=== PATIENT | male | born 1955 | race Two or more races ===

== ENCOUNTER 2019-05-30 08:20 | Emergency (ER) | payer OTHER ==
[2019-05-30 08:25] VITALS: RESP 18
--- NOTE | 2019-05-30 09:01 | XR ---
EXAMINATION TYPE: XR foot complete RT DATE OF EXAM: 05/30/2019 COMPARISON: NONE HISTORY: Heel pain TECHNIQUE: Three views are submitted. FINDINGS: The osseous structures are intact. There is no acute fracture or dislocation. Joint spaces are p reserved. Arthropathy of the first MTP joint. Moderate-sized plantar calcaneal spur. IMPRESSION: 1. No acute fracture or dislocation. If symptoms persist, follow-up exam in 7 to 10 days could be ob tained. 2. calcaneal spur.
--- NOTE | 2019-05-30 09:23 | ED ---
Lower Extremity Injury HPI - General Chief Complaint: Extremity Injury, Lower Stated Complaint: LEFT FOOT PAIN Time Seen by Provider: 05/30/19 08:24 Source: patient, RN notes reviewed, old records reviewed Mode of arrival: ambulatory Limitations: no limitations - History of Present Illness Initial Comments: This is a 63-year-old male the ER for evaluation. The patient has right foot pain. Right foot pain times multiple weeks. No injury noted. Patient has no trauma. No numbness or tingling and ambulate without difficulty pain is worse in the morning gets better throughout the day. No prior history of similar complaint. MD Complaint: foot injury (foot pain) -: week(s) Injury: Foot: Right Type of Injury: unknown Place: home Severity: moderate Severity scale (1-10): 4 Improves With: nothing Worsens With: weight bearing, movement Associated Symptoms: able to partially bear weight, ambulatory - Related Data Home Medications Medication Instructions Recorded Confirmed Atorvastatin Calcium [Lipitor] 10 mg PO HS 05/30/19 05/30/19 Levothyroxine Sodium [Synthroid] 75 mcg PO DAILY 05/30/19 05/30/19 Meloxicam [Mobic] 7.5 mg PO HS 05/30/19 05/30/19 Allergies Allergy/AdvReac Type Severity Reaction Status Date / Time No Known Allergies Allergy Verified 05/30/19 08:42 Review of Systems ROS Statement: Those systems with pertinent positive or pertinent negative responses have been documented in the HPI. ROS Other: All systems not noted in ROS Statement are negative. Past Medical History Past Medical History: Hyperlipidemia, Osteoarthritis (OA), Thyroid Disorder History of Any Multi-Drug Resistant Organisms: None Reported Past Surgical History: No Surgical Hx Reported Past Psychological History: Depression Smoking Status: Never smoker Past Alcohol Use History: None Reported Past Drug Use History: None Reported General Exam - General Exam Comments Initial Comments: Some calcaneus tenderness pulses 2+ and equal Limitations: no limitations General appearance: alert, in no apparent distress Head exam: Present: atraumatic, normocephalic, normal inspection Eye exam: Present: normal appearance, PERRL, EOMI. Absent: scleral icterus, conjunctival injection, periorbital swelling ENT exam: Present: normal exam, mucous membranes moist Neck exam: Present: normal inspection. Absent: tenderness, meningismus, lymphadenopathy Respiratory exam: Present: normal lung sounds bilaterally. Absent: respiratory distress, wheezes, rales, rhonchi, stridor Cardiovascular Exam: Present: regular rate, normal rhythm, normal heart sounds. Absent: systolic murmur, diastolic murmur, rubs, gallop, clicks GI/Abdominal exam: Present: soft, normal bowel sounds. Absent: distended, tenderness, guarding, rebound, rigid Extremities exam: Present: normal inspection, full ROM, normal capillary refill. Absent: tenderness, pedal edema, joint swelling, calf tenderness Back exam: Present: normal inspection Neurological exam: Present: alert, oriented X3, CN II-XII intact Psychiatric exam: Present: normal affect, normal mood Skin exam: Present: warm, dry, intact, normal color. Absent: rash Course Vital Signs 05/30/19 08:21 Temperature 97.8 F Pulse Rate 79 Respiratory 18 Rate Blood Pressure 155/82 O2 Sat by Pulse 97 Oximetry Medical Decision Making - Medical Decision Making 60 female the ER for evaluation of foot pain he'll pain. Patient likely has plantar fasciitis, x-rays negative, patient can be discharged home - Radiology Data Radiology results: report reviewed (Was negative for acute disease), image reviewed Disposition Clinical Impression: Plantar fasciitis of right foot Disposition: HOME SELF-CARE Condition: Good Instructions (If sedation given, give patient instructions): Plantar Fasciitis (ED) Is patient prescribed a controlled substance at d/c from ED?: No Referrals: Malik Garcia MD [Primary Care Provider] - 1-2 days
[2019-05-30 09:45] VITALS: BP 130/94; PULSE 78; TEMP 98
== END 2019-05-30 09:58 | disposition home or self-care (01) ==
LOC: EC 08:20
DX: M72.2 Plantar fascial fibromatosis (principal); E78.5 Hyperlipidemia, unspecified; E07.9 Disorder of thyroid, unspecified; M19.90 Unspecified osteoarthritis, unspecified site; Z79.890 Hormone replacement therapy; Z79.1 Long term (current) use of non-steroidal anti-inflammatories (NSAID); Z79.899 Other long term (current) drug therapy
CPT/HCPCS: 99284

== ENCOUNTER 2019-07-25 08:35 | Emergency (ER) | payer OTHER ==
[2019-07-25 08:40] VITALS: BP 148/88; PULSE 84; RESP 18; TEMP 98.2
[2019-07-25] MEDS ORDERED: ORPHENADRINE 30 MG/ML 2 ML VIAL IM STA (08:47)
[2019-07-25] MEDS ORDERED: KETOROLAC 60 MG/2 ML VIAL IM STA (08:47)
--- NOTE | 2019-07-25 08:50 | ED ---
Back Pain HPI - General Chief Complaint: Back Pain/Injury Stated Complaint: back pain Time Seen by Provider: 07/25/19 08:41 Source: patient, RN notes reviewed Mode of arrival: ambulatory Limitations: no limitations - History of Present Illness Initial Comments: 63-year-old male presents emergency Department with chief complaint of low back pain. Patient states that he was helping his son drive his car and states that he insulin he felt some pain in his right low back. Patient states that he felt a pop. He has no symptoms that radiate down into his leg. Denies any bowel bladder incontinence or retention. Patient states that he went to his chiropractor states that he had an adjustment which helped minimally. Patient states that he just is having spasms. He did take some naproxen yesterday with minimal relief of symptoms. He has no abdominal complaints denies fevers or chills. Patient does state that he has a history of degenerative disc disease. - Related Data Home Medications Medication Instructions Recorded Confirmed Atorvastatin Calcium [Lipitor] 10 mg PO HS 05/30/19 07/25/19 Levothyroxine Sodium [Synthroid] 75 mcg PO DAILY 05/30/19 07/25/19 Meloxicam [Mobic] 7.5 mg PO HS 05/30/19 07/25/19 Previous Rx's Medication Instructions Recorded Naproxen [Naprosyn] 500 mg PO Q12HR PRN #30 tab 05/30/19 Cyclobenzaprine [Flexeril] 10 mg PO TID PRN #15 tab 07/25/19 Ibuprofen [Motrin] 600 mg PO Q8HR PRN #30 tab 07/25/19 Allergies Allergy/AdvReac Type Severity Reaction Status Date / Time No Known Allergies Allergy Verified 07/25/19 08:59 Review of Systems ROS Statement: Those systems with pertinent positive or pertinent negative responses have been documented in the HPI. ROS Other: All systems not noted in ROS Statement are negative. Past Medical History Past Medical History: Hyperlipidemia, Osteoarthritis (OA), Thyroid Disorder History of Any Multi-Drug Resistant Organisms: None Reported Past Surgical History: No Surgical Hx Reported Past Psychological History: Depression Smoking Status: Never smoker Past Alcohol Use History: None Reported Past Drug Use History: None Reported General Exam Limitations: no limitations General appearance: alert, in no apparent distress Head exam: Present: atraumatic, normocephalic, normal inspection Respiratory exam: Present: normal lung sounds bilaterally. Absent: respiratory distress, wheezes, rales, rhonchi, stridor Cardiovascular Exam: Present: regular rate, normal rhythm, normal heart sounds. Absent: systolic murmur, diastolic murmur, rubs, gallop, clicks GI/Abdominal exam: Present: soft, normal bowel sounds. Absent: distended, tenderness, guarding, rebound, rigid Extremities exam: Present: other (Lower extremity strength equal bilaterally, neurovascular intact pedal pulses bilaterally. Right ankle noted teather no signs of infection around band) Back exam: Present: normal inspection, full ROM (Pain with range of motion flexion extension rotation), tenderness (Right lumbar mild to moderate), muscle spasm, paraspinal tenderness. Absent: vertebral tenderness Neurological exam: Present: alert, oriented X3, CN II-XII intact, reflexes normal. Absent: motor sensory deficit Skin exam: Present: warm, dry, intact, normal color. Absent: rash Course Vital Signs 07/25/19 08:38 Temperature 98.2 F Pulse Rate 84 Respiratory 18 Rate Blood Pressure 148/88 O2 Sat by Pulse 99 Oximetry Medical Decision Making - Medical Decision Making 63-year-old male presents emergency from for low back pain. Patient symptoms are consistent with a lumbar strain x-rays obtained which shows arthritic changes. Patient has no red flag symptoms. Patient will be discharged with close follow-up. Disposition Clinical Impression: Strain of lumbar region Disposition: HOME SELF-CARE Condition: Stable Instructions (If sedation given, give patient instructions): Acute Low Back Pain (ED) Additional Instructions: Please return to the Emergency Department if symptoms worsen or any other concerns. Prescriptions: Cyclobenzaprine [Flexeril] 10 mg PO TID PRN #15 tab PRN Reason: Muscle Spasm Ibuprofen [Motrin] 600 mg PO Q8HR PRN #30 tab PRN Reason: Pain Is patient prescribed a controlled substance at d/c from ED?: No Referrals: Malik Garcia MD [Primary Care Provider] - 1-2 days Time of Disposition: 09:17
--- NOTE | 2019-07-25 09:09 | XR ---
EXAMINATION TYPE: XR lumbar spine 2 or 3V DATE OF EXAM: 07/25/2019 CLINICAL HISTORY: Low back pain from twisting injury. TECHNIQUE: Frontal and lateral images of the lumbar spine are obtained. COMPARISON: None FINDINGS: There are 5 lumbar type vertebral bodies identified. The lumbar spine shows straightened alignment without evidence of acute fracture or dislocation. Moderate to severe disc space narrowing with mild to moderate anterior spurring L5-S1 level otherwise vertebral body heights and disc space h eights are felt normal limits. The overlying soft tissue appears unremarkable. IMPRESSION: As above.
[2019-07-25] MEDS ORDERED: ACET/COD 300 MG/30 MG STARTER PACK 6 TAB BTL PO STA (09:18)
== END 2019-07-25 09:25 | disposition home or self-care (01) ==
LOC: EC 08:35
DX: S39.012A Strain of muscle, fascia and tendon of lower back, initial encounter (principal); E78.5 Hyperlipidemia, unspecified; Z79.890 Hormone replacement therapy; Z79.899 Other long term (current) drug therapy; Z79.1 Long term (current) use of non-steroidal anti-inflammatories (NSAID); X50.9XXA Other and unspecified overexertion or strenuous movements or postures, initial encounter
CPT/HCPCS: 72100; 99283; 96372 ×2; J2360; J1885

== ENCOUNTER → 2019-08-02 | Outpatient (CLI) | payer OTHER ==
--- NOTE | 2019-08-02 14:48 | XR ---
EXAMINATION TYPE: XR lumbosacral spine min 4V DATE OF EXAM: 08/02/2019 CLINICAL HISTORY: DDD and pain per order. TECHNIQUE: Frontal, oblique, and lateral images of the lumbar spine are obtained. COMPARISON: Prior x-ray 8 days ago. FINDINGS: There are 5 lumbar type vertebral bodies redemonstrated. The lumbar spine shows stable an d satisfactory alignment without evidence of acute fracture or dislocation. Vertebral body heights we re maintained within normal limits. Moderate to severe disc space narrowing L5-S1 level is redemonstr ated with mild anterior spurring The oblique images appear within normal limits. The overlying soft tissue appears unremarkable. IMPRESSION: As above. No significant interval change.
== END | disposition home or self-care (01) ==
LOC: RADXRMAIN 13:54
PROVIDERS: ATTEND Family Medicine
DX: M99.73 Connective tissue and disc stenosis of intervertebral foramina of lumbar region (principal); M99.74 Connective tissue and disc stenosis of intervertebral foramina of sacral region
CPT/HCPCS: 72110

== ENCOUNTER 2020-05-21 13:01 | Emergency (ER) | payer OTHER ==
[2020-05-21] MEDS ORDERED: DIPH,PERTUS(ACELL)TETVAC-LF 0.5 ML VIAL IM ONE (13:13)
[2020-05-21] MEDS ORDERED: LIDOCAINE 1% INJ 10MG/ML (20 ML MDV) SQ ONE (13:13)
[2020-05-21 13:15] VITALS: RESP 16
--- NOTE | 2020-05-21 13:34 | XR ---
EXAMINATION TYPE: XR forearm LT DATE OF EXAM: 05/21/2020 CLINICAL HISTORY: pain TECHNIQUE: Frontal and lateral images of the left forearm are obtained. COMPARISON: None. FINDINGS: There is no acute fracture/dislocation evident. The joint spaces appear within normal limi ts. No evidence for radiopaque foreign body.. IMPRESSION: There is no acute fracture or dislocation. ICD 10 NO FRACTURE, INITIAL EVALUATION
--- NOTE | 2020-05-21 14:13 | ED ---
Wound/Laceration HPI - General Chief Complaint: Wound/Laceration Stated Complaint: left arm lac Time Seen by Provider: 05/21/20 13:09 Source: patient, RN notes reviewed, old records reviewed Mode of arrival: ambulatory Limitations: no limitations - History of Present Illness Initial Comments: Patient is a 64-year-old male presents emergency department today for evaluation with concern of laceration over the left forearm. Patient reportedly cut his arm while working on a car. Patient states that he has full range of motion of the arm and hand. He states that his tetanus shot is not up-to-date. - Related Data Home Medications Medication Instructions Recorded Confirmed Atorvastatin Calcium [Lipitor] 10 mg PO HS 05/30/19 07/25/19 Levothyroxine Sodium [Synthroid] 75 mcg PO DAILY 05/30/19 07/25/19 Meloxicam [Mobic] 7.5 mg PO HS 05/30/19 07/25/19 Previous Rx's Medication Instructions Recorded Naproxen [Naprosyn] 500 mg PO Q12HR PRN #30 tab 05/30/19 Cyclobenzaprine [Flexeril] 10 mg PO TID PRN #15 tab 07/25/19 Ibuprofen [Motrin] 600 mg PO Q8HR PRN #30 tab 07/25/19 Allergies Allergy/AdvReac Type Severity Reaction Status Date / Time No Known Allergies Allergy Verified 07/25/19 08:59 Review of Systems ROS Statement: Those systems with pertinent positive or pertinent negative responses have been documented in the HPI. ROS Other: All systems not noted in ROS Statement are negative. Past Medical History Past Medical History: Hyperlipidemia, Osteoarthritis (OA), Thyroid Disorder History of Any Multi-Drug Resistant Organisms: None Reported Past Surgical History: No Surgical Hx Reported Past Psychological History: Depression Smoking Status: Never smoker Past Alcohol Use History: None Reported Past Drug Use History: None Reported General Exam Limitations: no limitations General appearance: alert, in no apparent distress Head exam: Present: atraumatic, normocephalic, normal inspection Eye exam: Present: normal appearance ENT exam: Present: normal exam, mucous membranes moist Neck exam: Present: normal inspection Respiratory exam: Present: normal lung sounds bilaterally. Absent: respiratory distress, wheezes, rales, rhonchi, stridor Cardiovascular Exam: Present: regular rate, normal rhythm, normal heart sounds. Absent: systolic murmur, diastolic murmur, rubs, gallop, clicks GI/Abdominal exam: Present: soft Extremities exam: Present: normal inspection, full ROM, normal capillary refill, other (Patient is a 4 cm laceration superficial over the left anterior upper forearm. Laceration is linear.). Absent: tenderness, pedal edema, joint swelling, calf tenderness Back exam: Present: normal inspection Neurological exam: Present: alert, oriented X3, CN II-XII intact Psychiatric exam: Present: normal affect, normal mood Course Vital Signs 05/21/20 05/21/20 13:09 14:34 Temperature 97.9 F 98.1 F Pulse Rate 80 78 Respiratory 16 16 Rate Blood Pressure 149/82 139/93 O2 Sat by Pulse 97 95 Oximetry Procedures - Laceration Laceration #1 Indication: laceration Site: other (Left forearm) Size (cm): 4 Description: linear Depth: simple, single layer Anesthetic Used: lidocaine 1% Anesthesia Technique: local infiltration (6) Amount (mls): 6 Pre-repair: wound explored, irrigated extensively Type of Sutures: nylon Size of Sutures: 5-0 Number of Sutures: 8 Technique: simple, interrupted Patient Tolerated Procedure: well, no complications Medical Decision Making - Medical Decision Making 63-year-old male has restarted his left forearm laceration. Patient cut it while working on the car. Patient was given updated tetanus. Laceration was sterilely irrigated and closed with 8 sutures. Discussed monitoring for infection. All questions answered. - Radiology Data Radiology results: report reviewed Forearm x-ray shows no fracture dislocation. No evidence of retained foreign body. Disposition Clinical Impression: Forearm laceration Disposition: HOME SELF-CARE Condition: Good Instructions (If sedation given, give patient instructions): Care For Your Stitches (ED) Additional Instructions: Please return to the emergency room in 8-10 days to have sutures removed. Please leave wound covered for the first 24-48 hours and then leave open to air after that time. Please use clean soap and water to clean the suture area to prevent scabbing over the top of your sutures. Please watch for any signs of infection which may include but not limited to increased pain, swelling, redness, fever or chills. Please return to the emergency room if any signs of infection do occur. Please return to the emergency room for any other concerns or complications. Is patient prescribed a controlled substance at d/c from ED?: No Referrals: Malik Garcia MD [Primary Care Provider] - 1-2 days Time of Disposition: 14:12
[2020-05-21 14:38] VITALS: BP 139/93; PULSE 78; TEMP 98.1
== END 2020-05-21 14:38 | disposition home or self-care (01) ==
LOC: EC 13:01
DX: S51.812A Laceration without foreign body of left forearm, initial encounter (principal); Z23 Encounter for immunization; E78.5 Hyperlipidemia, unspecified; E07.9 Disorder of thyroid, unspecified; Z79.890 Hormone replacement therapy; Z79.899 Other long term (current) drug therapy; Z79.1 Long term (current) use of non-steroidal anti-inflammatories (NSAID); W26.8XXA Contact with other sharp object(s), not elsewhere classified, initial encounter
CPT/HCPCS: 73090; 90715; 99283; 12002; 90471; J2001

== ENCOUNTER 2020-09-28 18:06 | Observation (INO) | payer OTHER ==
[2020-09-28] MEDS ORDERED: ASPIRIN 81 MG PO STA (18:47)
[2020-09-28] MEDS ORDERED: NITROGLYCERIN SL TABS 0.4 MG TAB SUBLINGUAL STA ×3 (18:47)
[2020-09-28] MEDS ORDERED: HYDROmorphone 1 MG/ML 1 ML SYRINGE IVP STA (19:12)
--- NOTE | 2020-09-28 19:14 | ED ---
General Adult HPI - General Chief complaint: Chest Pain Stated complaint: Chest/back pain Time Seen by Provider: 09/28/20 18:46 Source: patient, RN notes reviewed Mode of arrival: wheelchair Limitations: no limitations - History of Present Illness Initial comments: Patient is a pleasant 64-year-old male presenting to the emergency Department with complaints of both back and chest discomfort. Patient states back discomfort is right lower back and has been present over the past week. Patient has been to the chiropractor twice. Patient states this is a chronic problem for him and would like some pain medicine for it. Patient states a couple of ho urs ago he started developing some chest discomfort. Discomfort feels like an ache without radiation. Left chest. Discomfort is mild rated a 2 or 3/10. No associated dyspnea, nausea, or diaphoresis. - Related Data Home Medications Medication Instructions Recorded Confirmed Atorvastatin Calcium [Lipitor] 10 mg PO HS 05/30/19 07/25/19 Levothyroxine Sodium [Synthroid] 75 mcg PO DAILY 05/30/19 07/25/19 Meloxicam [Mobic] 7.5 mg PO HS 05/30/19 07/25/19 Previous Rx's Medication Instructions Recorded Naproxen [Naprosyn] 500 mg PO Q12HR PRN #30 tab 05/30/19 Cyclobenzaprine [Flexeril] 10 mg PO TID PRN #15 tab 07/25/19 Ibuprofen [Motrin] 600 mg PO Q8HR PRN #30 tab 07/25/19 Allergies Allergy/AdvReac Type Severity Reaction Status Date / Time No Known Allergies Allergy Verified 09/28/20 18:15 Review of Systems ROS Statement: Those systems with pertinent positive or pertinent negative responses have been documented in the HPI. ROS Other: All systems not noted in ROS Statement are negative. Constitutional: Denies: fever Eyes: Denies: eye pain ENT: Denies: ear pain Respiratory: Denies: cough, dyspnea Cardiovascular: Reports: as per HPI, chest pain Endocrine: Denies: fatigue Gastrointestinal: Denies: abdominal pain Genitourinary: Denies: dysuria Musculoskeletal: Reports: as per HPI, back pain (right lower back) Skin: Denies: rash Neurological: Denies: weakness Past Medical History Past Medical History: Hyperlipidemia, Osteoarthritis (OA), Thyroid Disorder History of Any Multi-Drug Resistant Organisms: None Reported Past Surgical History: No Surgical Hx Reported Past Psychological History: Depression Past Alcohol Use History: None Reported Past Drug Use History: None Reported General Exam Limitations: no limitations General appearance: alert, in no apparent distress Head exam: Present: normocephalic Eye exam: Present: normal appearance Neck exam: Present: normal inspection Respiratory exam: Present: normal lung sounds bilaterally. Absent: chest wall tenderness Cardiovascular Exam: Present: regular rate, normal rhythm Expanded Peripheral pulses: 2+: Radial (R), Radial (L), Dorsalis Pedis (R), Dorsalis Pedis (L) GI/Abdominal exam: Present: soft. Absent: distended, tenderness Extremities exam: Present: normal inspection, other Back exam: Present: tenderness (mild tenderness right paralumbar region) Neurological exam: Present: alert Psychiatric exam: Present: normal affect, normal mood Skin exam: Present: normal color (patient does have a bracelet-like monitoring device left ankle) Course Vital Signs 09/28/20 09/28/20 18:10 19:24 Temperature 98.4 F Pulse Rate 84 80 Respiratory 16 16 Rate Blood Pressure 141/84 142/89 O2 Sat by Pulse 98 96 Oximetry - Reevaluation(s) Reevaluation #1: 09/28/20 19:55 EKG #2 at 1856 shows normal sinus rhythm at 75. W[place] 166. QRS 66. QT 394. QTC 439. Normal axis. Normal QRS. Nonspecific ST-T. EKG Findings - EKG Comments: EKG Findings:: normal sinus rhythm 81. W[place] 162. QRS 66. QT 374. QTC 434. Normal axis. Normal QRS. Nonspecific ST-T. Medical Decision Making - Medical Decision Making patient reevaluated and resting comfortably in bed. Symptoms have improved. Patient updated on results and plan. Case was discussed with Dr. Bal, who will admit covering for Dr. Garcia. Cardiology will be placed on consult. - Lab Data Result diagrams: 09/28/20 19:09 09/28/20 19:09 Lab Results 09/28/20 09/28/20 09/28/20 Range/Units 19:09 19:09 19:09 WBC 7.0 (3.8-10.6) k/uL RBC 4.89 (4.30-5.90) m/uL Hgb 14.5 (13.0-17.5) gm/dL Hct 43.4 (39.0-53.0) % MCV 88.7 (80.0-100.0) fL MCH 29.7 (25.0-35.0) pg MCHC 33.5 (31.0-37.0) g/dL RDW 13.7 (11.5-15.5) % Plt Count 234 (150-450) k/uL MPV 7.4 Neutrophils % 71 % Lymphocytes % 18 % Monocytes % 6 % Eosinophils % 3 % Basophils % 0 % Neutrophils # 4.9 (1.3-7.7) k/uL Lymphocytes # 1.3 (1.0-4.8) k/uL Monocytes # 0.4 (0-1.0) k/uL Eosinophils # 0.2 (0-0.7) k/uL Basophils # 0.0 (0-0.2) k/uL PT 9.8 (9.0-12.0) sec INR 0.9 (<1.2) APTT 24.5 (22.0-30.0) sec D-Dimer 0.28 (<0.60) mg/L FEU Sodium 141 (137-145) mmol/L Potassium 4.0 (3.5-5.1) mmol/L Chloride 111 H (98-107) mmol/L Carbon Dioxide 24 (22-30) mmol/L Anion Gap 6 mmol/L BUN 17 (9-20) mg/dL Creatinine 0.98 (0.66-1.25) mg/dL Est GFR (CKD-EPI)AfAm >90 (>60 ml/min/1.73 sqM) Est GFR (CKD-EPI)NonAf 82 (>60 ml/min/1.73 sqM) Glucose 122 H (74-99) mg/dL Calcium 9.4 (8.4-10.2) mg/dL Magnesium 1.8 (1.6-2.3) mg/dL Total Bilirubin 0.4 (0.2-1.3) mg/dL AST 29 (17-59) U/L ALT 23 (4-49) U/L Alkaline Phosphatase 55 (38-126) U/L Troponin I (0.000-0.034) ng/mL Total Protein 7.3 (6.3-8.2) g/dL Albumin 4.3 (3.5-5.0) g/dL 09/28/20 Range/Units 19:09 WBC (3.8-10.6) k/uL RBC (4.30-5.90) m/uL Hgb (13.0-17.5) gm/dL Hct (39.0-53.0) % MCV (80.0-100.0) fL MCH (25.0-35.0) pg MCHC (31.0-37.0) g/dL RDW (11.5-15.5) % Plt Count (150-450) k/uL MPV Neutrophils % % Lymphocytes % % Monocytes % % Eosinophils % % Basophils % % Neutrophils # (1.3-7.7) k/uL Lymphocytes # (1.0-4.8) k/uL Monocytes # (0-1.0) k/uL Eosinophils # (0-0.7) k/uL Basophils # (0-0.2) k/uL PT (9.0-12.0) sec INR (<1.2) APTT (22.0-30.0) sec D-Dimer (<0.60) mg/L FEU Sodium (137-145) mmol/L Potassium (3.5-5.1) mmol/L Chloride (98-107) mmol/L Carbon Dioxide (22-30) mmol/L Anion Gap mmol/L BUN (9-20) mg/dL Creatinine (0.66-1.25) mg/dL Est GFR (CKD-EPI)AfAm (>60 ml/min/1.73 sqM) Est GFR (CKD-EPI)NonAf (>60 ml/min/1.73 sqM) Glucose (74-99) mg/dL Calcium (8.4-10.2) mg/dL Magnesium (1.6-2.3) mg/dL Total Bilirubin (0.2-1.3) mg/dL AST (17-59) U/L ALT (4-49) U/L Alkaline Phosphatase (38-126) U/L Troponin I <0.012 (0.000-0.034) ng/mL Total Protein (6.3-8.2) g/dL Albumin (3.5-5.0) g/dL - Radiology Data Radiology results: image reviewed (chest x-ray shows no acute process) Disposition Clinical Impression: Chest pain Disposition: ADMITTED IP TO THIS HOSP Is patient prescribed a controlled substance at d/c from ED?: No Referrals: Malik Garcia MD [Primary Care Provider] - 1-2 days Decision Time: 20:15
[2020-09-28 19:22] LABS: Basophils % (A) 0 %; Eosinophils # (A) 0.2 k/uL (0-0.7); Eosinophils % (A) 3 %; HCT 43.4 % (39.0-53.0); HGB 14.5 gm/dL (13.0-17.5); Lymphocytes # (A) 1.3 k/uL (1.0-4.8); Lymphocytes % (A) 18 %; MCH 29.7 pg (25.0-35.0); MCHC 33.5 g/dL (31.0-37.0); MCV 88.7 fL (80.0-100.0); Mean Platelet Volume 7.4; Monocytes # (A) 0.4 k/uL (0-1.0); Monocytes % (A) 6 %; Neutrophils # (A) 4.9 k/uL (1.3-7.7); Neutrophils % (A) 71 %; Platelet Count 234 k/uL (150-450); RBC 4.89 m/uL (4.30-5.90); RDW 13.7 % (11.5-15.5)
[2020-09-28 19:29] LABS: ALT 23 U/L (4-49); AST 29 U/L (17-59); African American GFR (CKD) >90 (>60 ml/min/1.73 sqM); Albumin 4.3 g/dL (3.5-5.0); Alkaline Phosphatase 55 U/L (38-126); Anion Gap 6 mmol/L; Blood Urea Nitrogen 17 mg/dL (9-20); Calcium 9.4 mg/dL (8.4-10.2); Carbon Dioxide 24 mmol/L (22-30); Chloride 111 mmol/L (98-107); Glucose 122 mg/dL (74-99); Magnesium 1.8 mg/dL (1.6-2.3); Non-African American GFR(CKD) 82 (>60 ml/min/1.73 sqM); Sodium 141 mmol/L (137-145); Total Bilirubin 0.4 mg/dL (0.2-1.3); Total Protein 7.3 g/dL (6.3-8.2)
[2020-09-28 19:38] LABS: D-Dimer 0.28 mg/L FEU (<0.60); INR 0.9 (<1.2); Partial Thromboplastin Time 24.5 sec (22.0-30.0); Prothrombin Time 9.8 sec (9.0-12.0)
--- NOTE | 2020-09-28 20:01 | XR ---
EXAMINATION TYPE: XR chest 2V DATE OF EXAM: 09/28/2020 COMPARISON: NONE HISTORY: Chest pain TECHNIQUE: 2 views FINDINGS: Heart and mediastinum are normal. Lungs are clear. Diaphragm is normal. Bony thorax is inta ct. IMPRESSION: Normal chest.
[2020-09-28] MEDS ORDERED: HEPARIN SODIUM,PORCINE 5,000 UNIT/ML 1 ML VIAL IV ONE (20:16)
[2020-09-28] MEDS ORDERED: NITROGLYCERIN SL TABS 0.4 MG TAB SUBLINGUAL PRN (20:16)
[2020-09-28] MEDS ORDERED: HEPARIN SOD,PORK IN 0.45% NACL 25,000 UNIT in 0.45% NACL 1 250ML.BAG IV SCH (20:30)
[2020-09-29] MEDS ORDERED: SUMAtriptan succinate 50 MG TAB PO PRN
[2020-09-29] MEDS: ACETAMINOPHEN TAB 325 MG TAB PO PRN ×2 (02:57→08:09)
[2020-09-29 04:32] VITALS: RESP 16
[2020-09-29] MEDS: NITROGLYCERIN OINT 1 INCH/GM PACKET TOPICAL SCH ×3 (06:25→13:07)
[2020-09-29] MEDS ORDERED: LEVOTHYROXINE 75 MCG TAB PO SCH (06:30)
[2020-09-29 06:53] LABS: Mean Platelet Volume 7.3; Platelet Count 211 k/uL (150-450)
[2020-09-29 07:10] LABS: Cholesterol 192 mg/dL (<200); HDL Cholesterol 58 mg/dL (40-60); LDL Cholesterol,Calculated 126 mg/dL (0-99); Triglycerides 39 mg/dL (<150)
--- NOTE | 2020-09-29 08:07 | P.CRDCN ---
History of Present Illness Consult date: 09/29/20 Chief complaint: Back pain/chest pain History of present illness: This is a pleasant 64-year-old gentleman with a past medical history significant for dyslipidemia with no prior history of coronary artery disease or diabetes or hypertension who presented to the hospital because of back pain. The patient was doing some work on his mobile home and also he does some work on his car when he changed a tire but subsequently he started experiencing pain. He described the pain mainly in the lower back. We consulted to see him because of chest discomfort. He stated that yesterday he did have chest discomfort but he described it as "the discomfort was radiating from the back to the chest". Currently he is chest pain-free but he is experiencing back pain and he is asking for pain medication. Denies any shortness of breath or sweating or d izziness or lightheadedness or any feeling of heart racing or fluttering. The EKG showed sinus rhythm with evidence of early repolarization without any clear- cut evidence of ST or T-wave abnormalities concerning for severe underlying coronary artery disease. The troponin was checked and came in to be unremarkable. The d-dimer was checked and came in to be unremarkable. The chest x-ray showed no acute abnormalities. The rest of his blood work overall came in to be unremarkable. The patient is asking now for pain for his back. On examination he does have epigastric/abdominal tenderness and he stated that he was diagnosed with colon infection recently and he was started on antibiotic which was stopped subsequently. Past Medical History Past Medical History: Hyperlipidemia, Osteoarthritis (OA), Thyroid Disorder History of Any Multi-Drug Resistant Organisms: None Reported Past Surgical History: No Surgical Hx Reported Past Psychological History: Depression Smoking Status: Never smoker Past Alcohol Use History: None Reported Past Drug Use History: None Reported - Past Family History Mother Family Medical History: Cancer Additional Family Medical History / Comment(s): Lung cancer Father Family Medical History: Diabetes Mellitus Medications and Allergies Home Medications Medication Instructions Recorded Confirmed Type Atorvastatin Calcium [Lipitor] 10 mg PO HS 05/30/19 09/28/20 History Levothyroxine Sodium [Synthroid] 75 mcg PO DAILY 05/30/19 09/28/20 History Acetaminophen [Tylenol] 975 mg PO ONCE PRN 09/28/20 09/28/20 History Naproxen Sodium [Aleve] 220 mg PO DAILY PRN 09/28/20 09/28/20 History Omeprazole 20 mg PO DAILY 09/28/20 09/28/20 History SUMAtriptan SUCCINATE [Imitrex] 50 mg PO DAILY PRN MDD 2 tabs/24hr 09/28/20 09/28/20 History Allergies Allergy/AdvReac Type Severity Reaction Status Date / Time No Known Allergies Allergy Verified 09/28/20 21:36 Physical Exam Vitals: Vital Signs Temp Pulse Pulse Resp BP BP Pulse Ox 09/29/20 03:00 97.5 F L 70 16 149/80 97 09/28/20 21:35 97.6 F 82 17 137/80 97 09/28/20 19:24 80 16 142/89 96 09/28/20 18:10 98.4 F 84 16 141/84 98 Intake and Output 09/28/20 09/29/20 09/29/20 22:59 06:59 14:59 Intake Total 47.701 Balance 47.701 Intake: Intake, IV Titration 47.701 Amount Heparin Sod,Pork in 0.45% 47.701 NaCl 25,000 unit In 0.45 % NaCl 1 250ml.bag @ 12 UNITS/KG/HR 9.144 mls/hr IV .Q24H [facility] Rx#: [id number] Other: Voiding Method Toilet Weight 76.204 kg - Constitutional General appearance: no acute distress - Respiratory Respiratory: bilateral: CTA - Cardiovascular Rhythm: regular Heart sounds: normal: S1, S2 Results 09/29/20 06:19 09/28/20 19:09 Cardiac Enzymes 09/28/20 09/28/20 09/28/20 Range/Units 19:09 19:09 22:05 AST 29 (17-59) U/L Troponin I <0.012 <0.012 (0.000-0.034) ng/mL 09/29/20 Range/Units 02:02 AST (17-59) U/L Troponin I <0.012 (0.000-0.034) ng/mL Coagulation 09/28/20 09/29/20 09/29/20 Range/Units 19:09 02:12 06:19 PT 9.8 (9.0-12.0) sec APTT 24.5 45.3 H 54.7 H (22.0-30.0) sec Lipids 09/29/20 Range/Units 06:19 Triglycerides 39 (<150) mg/dL Cholesterol 192 (<200) mg/dL HDL Cholesterol 58 (40-60) mg/dL CBC 09/28/20 09/29/20 Range/Units 19:09 06:19 WBC 7.0 (3.8-10.6) k/uL RBC 4.89 (4.30-5.90) m/uL Hgb 14.5 (13.0-17.5) gm/dL Hct 43.4 (39.0-53.0) % Plt Count 234 211 (150-450) k/uL Comprehensive Metabolic Panel 09/28/20 Range/Units 19:09 Sodium 141 (137-145) mmol/L Potassium 4.0 (3.5-5.1) mmol/L Chloride 111 H (98-107) mmol/L Carbon Dioxide 24 (22-30) mmol/L BUN 17 (9-20) mg/dL Creatinine 0.98 (0.66-1.25) mg/dL Glucose 122 H (74-99) mg/dL Calcium 9.4 (8.4-10.2) mg/dL AST 29 (17-59) U/L ALT 23 (4-49) U/L Alkaline Phosphatase 55 (38-126) U/L Total Protein 7.3 (6.3-8.2) g/dL Albumin 4.3 (3.5-5.0) g/dL Current Medications Generic Name Dose Route Start Last Admin Trade Name Freq PRN Reason Stop Dose Admin Acetaminophen 650 mg 09/28/20 22:54 09/29/20 02:57 Acetaminophen Tab 325 Mg Tab PO 650 mg Q6HR PRN Administration Fever and/ or Pain Aspirin 325 mg 09/29/20 09:00 Aspirin 325 Mg Tab PO DAILY GINA Atorvastatin Calcium 10 mg 09/29/20 21:00 Atorvastatin 10 Mg Tab PO HS GINA Heparin Sodium/Sodium Chloride 250 mls @ 9.144 mls/hr 09/28/20 20:30 09/29/20 02:54 25,000 unit/ Sodium Chloride IV 12 units/kg/hr .Q24H GINA 9.144 mls/hr Titration Protocol 12 UNITS/KG/HR Levothyroxine Sodium 75 mcg 09/29/20 06:30 09/29/20 06:27 Levothyroxine 75 Mcg Tab PO 75 mcg DAILY@0630 [facility] Administration Nitroglycerin 0.4 mg 09/28/20 20:16 Nitroglycerin Sl Tabs 0.4 Mg Tab SUBLINGUAL Q5M PRN Chest Pain Nitroglycerin 1 inch 09/29/20 00:00 09/29/20 06:25 Nitroglycerin Oint 1 Inch/Gm Packet TOPICAL Not Given Q6HR [facility] Pantoprazole Sodium 40 mg 09/29/20 09:00 Pantoprazole 40 Mg Tablet PO DAILY GINA Sumatriptan Succinate 50 mg 09/29/20 00:00 Sumatriptan Succinate 50 Mg Tab PO DAILY PRN Vertigo Intake and Output 09/28/20 09/29/20 09/29/20 22:59 06:59 14:59 Intake Total 47.701 Balance 47.701 Intake: Intake, IV Titration 47.701 Amount Heparin Sod,Pork in 0.45% 47.701 NaCl 25,000 unit In 0.45 % NaCl 1 250ml.bag @ 12 UNITS/KG/HR 9.144 mls/hr IV .Q24H [facility] Rx#: [id number] Other: Voiding Method Toilet Weight 76.204 kg 09/29/20 06:19 09/28/20 19:09 Assessment and Plan Assessment: Assessment #1 lower back pain probably related to injury #2 atypical chest discomfort #3 dyslipidemia #4 epigastric tenderness Plan #1 acute coronary event was ruled out #2 pulmonary embolism was ruled out. #3 I would suggest obtain an ultrasound of the abdomen to rule out any intra-abdominal process #4 monitor the patient for additional 24 hours #5 obtain an echocardiogram was Doppler #6 consider a stress test either as an inpatient on Thursday or as an outpatient Thank you for allowing us participate in his care
[2020-09-29] MEDS ORDERED: BACLOFEN 10 MG TAB PO PRN (08:26)
[2020-09-29] MEDS ORDERED: Acetaminophen-Codeine 300-30mg TAB PO PRN (08:27)
[2020-09-29] MEDS ORDERED: PANTOPRAZOLE 40 MG TABLET PO SCH (09:00)
[2020-09-29] MEDS ORDERED: dexAMETHasone 4 MG TAB PO SCH (09:00)
[2020-09-29] MEDS ORDERED: ASPIRIN 325 MG TAB PO SCH (09:00)
--- NOTE | 2020-09-29 10:24 | P.HPIM ---
History of Present Illness H&P Date: 09/29/20 This will serve as both H&P and discharge summary. This is a pleasant 64-year-old patient of Dr. mcadams with a past medical history significant for hyperlipidemia also arthritis with chronic back pain, and hypothyroidism. he has no prior history of coronary artery disease or diabetes hypertension. Patient came to the emergency room complaining of severe back pain that was radiating to his chest however the pain was due to a back injury. Patient has chronic back pain has been seen by pain management but is not on any current medications. Patient stated that he went to his chiropractor twice this week that helped relieve some of the back pain however yesterday the pain was so severe that he was slouched forward and began to radiate to the chest which had him concerned bringing him to come to the emergency room for evaluation. Patient has been seen previously for back pain where he has been given a pain shot that helped relieve it. Patient denies any nausea or vomiting shortness of breath. Review of Systems Review Of Systems: Constitutional: No fever, no chills, no night sweats. No weight change. No weakness, fatigue or lethargy. No daytime sleepiness. EENT: No headache. No blurred vision or double vision, no loss of vision. No loss of Hearing, no ringing in the ears, no dizziness. No nasal drainage or congestion. No epistaxis. No sore throat. Lungs: No shortness of breath, cough, no sputum production. No wheezing. Cardiovascular: No chest pain, no lower extremity edema. No palpitations. No paroxysmal nocturnal dyspnea. No orthopnea. No lightheadedness or dizziness. No syncopal episodes. Abdominal: no abdominal discomfort. No nausea, vomiting. no diarrhea. No constipation. No bloody or tarry stools. no loss of appetite. Genitourinary: No dysuria, increased frequency, urgency. No urinary retention. Musculoskeletal: Reports back pain No myalgias. No muscle weakness, no gait dysfunction, no frequent falls. No neck pain. Integumentary: No wounds, no lesions. No rash or pruritus. No unusual bruising. No change in hair or nails. Neurologic: No aphasia. No facial droop. No change in mentation. No head injury. No headache. No paralysis. No paresthesia. Psychiatric: No depression. No anxiety. No mood swings. Endocrine: No abnormal blood sugars. No weight change. No excessive sweating or thirst. Past Medical History Past Medical History: Hyperlipidemia, Osteoarthritis (OA), Thyroid Disorder History of Any Multi-Drug Resistant Organisms: None Reported Past Surgical History: No Surgical Hx Reported Past Psychological History: Depression Smoking Status: Never smoker Past Alcohol Use History: None Reported Past Drug Use History: None Reported - Past Family History Mother Family Medical History: Cancer Additional Family Medical History / Comment(s): Lung cancer Father Family Medical History: Diabetes Mellitus Medications and Allergies Home Medications Medication Instructions Recorded Confirmed Type Atorvastatin Calcium [Lipitor] 10 mg PO HS 05/30/19 09/28/20 History Levothyroxine Sodium [Synthroid] 75 mcg PO DAILY 05/30/19 09/28/20 History Acetaminophen [Tylenol] 975 mg PO ONCE PRN 09/28/20 09/28/20 History Naproxen Sodium [Aleve] 220 mg PO DAILY PRN 09/28/20 09/28/20 History Omeprazole 20 mg PO DAILY 09/28/20 09/28/20 History SUMAtriptan SUCCINATE [Imitrex] 50 mg PO DAILY PRN MDD 2 tabs/24hr 09/28/20 09/28/20 History Acetaminophen-Codeine 300-30mg 2 each PO Q6HR PRN #12 tab 09/29/20 Rx [Tylenol w/codeine #3] Baclofen [Lioresal] 10 mg PO TID PRN #30 tab 09/29/20 Rx dexAMETHasone [Hexadrol] 4 mg PO BID #14 tab 09/29/20 Rx Allergies Allergy/AdvReac Type Severity Reaction Status Date / Time No Known Allergies Allergy Verified 09/28/20 21:36 Physical Exam Vitals: Vital Signs Temp Pulse Pulse Resp BP BP Pulse Ox 09/29/20 09:00 83 16 09/29/20 08:15 97.8 F 83 16 142/79 97 09/29/20 03:00 97.5 F L 70 16 149/80 97 09/28/20 21:35 97.6 F 82 17 137/80 97 09/28/20 19:24 80 16 142/89 96 09/28/20 18:10 98.4 F 84 16 141/84 98 Intake and Output 09/28/20 09/29/20 09/29/20 22:59 06:59 14:59 Intake Total 47.701 Balance 47.701 Intake: Intake, IV Titration 47.701 Amount Heparin Sod,Pork in 0.45% 47.701 NaCl 25,000 unit In 0.45 % NaCl 1 250ml.bag @ 12 UNITS/KG/HR 9.144 mls/hr IV .Q24H [facility] Rx#: [id number] Other: Voiding Method Toilet Toilet Weight 76.204 kg General Appearance: Alert, cooperative, no distress, appears stated age. Neck HEENT: Supple, no lymphadenopathy, no thyroid enlargement, no carotid bruits. Lungs: Clear to auscultation without crackles or wheezes no rhonchi, no deformity. Chest Wall: Chest wall normal expansion with deep inspiration no tenderness and no deformity was found on exam, no costochondral pain or discomfort. Heart: Regular rate and rhythm, S1, S2 normal, no murmur, rub or gallop. Back: Symmetric, no curvature, ROM normal, no CVA tenderness. Abdomen: Epigastric tenderness related to back pain Soft, non-tender, no rebound or rigidity, no hepatosplenomegaly. Extremities: Extremities normal, atraumatic, no cyanosis or edema. Pulses: 2+ and symmetric. Skin: Skin color, texture, tugor normal, no rashes or lesions. Neurologic: Alert oriented x3 cranial nerves II through XII intact, no motor deficit, no abnormal balance or gait Results CBC & Chem 7: 09/29/20 06:19 09/28/20 19:09 Labs: Abnormal Lab Results - Last 24 Hours (Table) 09/28/20 09/29/20 09/29/20 Range/Units 19:09 02:12 06:19 APTT 45.3 H (22.0-30.0) sec Chloride 111 H (98-107) mmol/L Glucose 122 H (74-99) mg/dL LDL Cholesterol, Calc 126 H (0-99) mg/dL 09/29/20 Range/Units 06:19 APTT 54.7 H (22.0-30.0) sec Chloride (98-107) mmol/L Glucose (74-99) mg/dL LDL Cholesterol, Calc (0-99) mg/dL Thrombosis Risk Factor Assmnt - Choose All That Apply Any of the Below Risk Factors Present?: Yes Each Factor Represents 1 point: Obesity (BMI >25) Other Risk Factors: Yes Each Risk Factor Represents 2 Points: Age 61-74 years Other congenital or acquired thrombophilia - If yes, enter type in comment: No Thrombosis Risk Factor Assessment Total Risk Factor Score: 3 Thrombosis Risk Factor Assessment Level: Moderate Risk Assessment and Plan Plan: 1. Lower back pain related to injury. Tylenol 3 for pain management, baclofen 10 mg 3 times a day, Decadron 4 mg by mouth twice a day. Patient may be discharged home today with prescriptions for steroids pain management and muscle relaxer once cleared by cardiology. 2. Atypical chest discomfort. Cardiology consult appreciated. Echocardiogram ordered. 3. Hypothyroidism. Synthroid 75mcg daily 4. Epigastric discomfort and GI prophylaxis. Protonix 40 mg by mouth daily 5. Migraines. Imitrex 50 mg by mouth daily as needed 6. Hyperlipidemia. Lipitor 10 mg by mouth at bedtime 7. DVT prophylaxis. Heparin drip DC'd early ambulation. Discharge plan: Patient to be discharged today home with self-care.
--- NOTE | 2020-09-29 15:00 | ECHOF ---
Referral Reason:Chest pain MEASUREMENTS -------- HEIGHT: 170.2 cm WEIGHT: 76.2 kg BP: 142/79 RVIDd: 2.8 cm (< 3.3) IVSd: 1.2 cm (0.6 - 1.1) LVIDd: 3.4 cm (3.9 - 5.3) LVPWd: 1.1 cm (0.6 - 1.1) IVSs: 1.7 cm LVIDs: 2.3 cm LVPWs: 1.7 cm LA Diam: 3.5 cm (2.7 - 3.8) LAESV Index (A-L): 26.07 ml/m Ao Diam: 3.0 cm (2.0 - 3.7) AV Cusp: 2.0 cm (1.5 - 2.6) MV EXCURSION: 13.970 mm (> 18.000) MV EF SLOPE: 50 mm/s (70 - 150) EPSS: 0.6 cm MV E Christofer: 0.92 m/s MV DecT: 209 ms MV A Christofer: 1.18 m/s MV E/A Ratio: 0.78 AR PHT: 649 ms FINDINGS -------- Sinus rhythm. This was a technically good study. The left ventricular size is normal. There is borderline concentric left ventricular hypertrophy. Overall left ventricular systolic function is normal with, an EF between 60 - 65 %. The right ventricle is normal in size. Normal LA size by volume 22+/-6 ml/m2. The right atrium is normal in size. Interatrial and interventricular septum intact. The aortic valve is trileaflet and appears structurally normal. There is mild aortic regurgitation. Mild mitral regurgitation is present. Trace tricuspid regurgitation present. Trace/mild (physiologic) pulmonic regurgitation. The aortic root size is normal. Normal inferior vena cava with normal inspiratory collapse consistent with estimated right atrial pre ssure of 5 mmHg. There is no pericardial effusion. CONCLUSIONS -------- 1. The left ventricular size is normal. 2. There is borderline concentric left ventricular hypertrophy. 3. Overall left ventricular systolic function is normal with, an EF between 60 - 65 %. 4. There is mild aortic regurgitation. 5. Mild mitral regurgitation is present. 6. Trace tricuspid regurgitation present. 7. Trace/mild (physiologic) pulmonic regurgitation. 8. There is no pericardial effusion. GARMENT SEWER HAND: Kena Powell RDCS
[2020-09-29 16:01] VITALS: BP 135/71; PULSE 76; TEMP 98
[2020-09-29] MEDS ORDERED: ATORVASTATIN 10 MG TAB PO SCH (21:00)
== END 2020-09-29 17:05 | disposition home or self-care (01) ==
LOC: EC 18:06 → 3NCARDOBS 20:16
PROVIDERS: ADMIT Internal Medicine Geriatric Medicine; ATTEND Internal Medicine Geriatric Medicine
DX: R07.89 Other chest pain (principal); G89.29 Other chronic pain; M54.5 Low back pain; E03.9 Hypothyroidism, unspecified; R94.31 Abnormal electrocardiogram [ECG] [EKG]; R10.13 Epigastric pain; G43.909 Migraine, unspecified, not intractable, without status migrainosus; E78.5 Hyperlipidemia, unspecified; M19.90 Unspecified osteoarthritis, unspecified site; E07.9 Disorder of thyroid, unspecified; F32.9 Major depressive disorder, single episode, unspecified; Z68.26 Body mass index [BMI] 26.0-26.9, adult; E66.9 Obesity, unspecified; Z79.899 Other long term (current) drug therapy; Z79.890 Hormone replacement therapy; Z79.1 Long term (current) use of non-steroidal anti-inflammatories (NSAID); Z87.828 Personal history of other (healed) physical injury and trauma; Z80.1 Family history of malignant neoplasm of trachea, bronchus and lung; Z83.3 Family history of diabetes mellitus
CPT/HCPCS: 93005 ×2; 96366 ×2; 96376; 96365; 96375; 99285; 36415; 93306; 85379; 80061; 80053; 83735; 84484 ×2; 85025; 85049; 85610; 85730 ×2; 71046; G0378 ×2; J8540; J1644 ×2; J1170

== ENCOUNTER 2020-10-09 17:22 | Inpatient (IN) | payer OTHER ==
[2020-10-09] MEDS ORDERED: SODIUM CHLORIDE 0.9% 1,000 ML IV STA (17:49)
--- NOTE | 2020-10-09 18:15 | ED ---
Abdominal Pain HPI - General Chief Complaint: Abdominal Pain Stated Complaint: Sent by pcp - lab recheck Time Seen by Provider: 10/09/20 17:32 Source: patient Mode of arrival: ambulatory Limitations: no limitations - History of Present Illness Initial Comments: 64-year-old male patient presents to the emergency department today for evaluation of abdominal pain, weakness, and blurred vision. Patient states isn't having any symptoms for about a week. He did see his primary care physician at outpatient labs performed. He stated that his lipase and liver enzymes were elevated and sent here for further evaluation. He did test negative for COVID-19. Patient denies any fever or chills. Denies any nausea or vomiting. Denies any constipation or diarrhea. Denies any hematochezia or melena. Does report easy bruising. Denies history of alcohol or drug use. Patient denies any recent rash, cough, shortness of breath, chest pain, abdominal pain, nausea, vomiting, diarrhea, constipation, back pain, numbness, tingling, hematuria, dysuria, urinary urgency, urinary frequency, headache, visual changes, or any other complaints. - Related Data Home Medications Medication Instructions Recorded Confirmed Atorvastatin Calcium [Lipitor] 10 mg PO HS 05/30/19 10/09/20 Levothyroxine Sodium [Synthroid] 75 mcg PO DAILY 05/30/19 10/09/20 Omeprazole 20 mg PO DAILY 09/28/20 10/09/20 Lisinopril [Prinivil] 10 mg PO DAILY 10/09/20 10/09/20 Allergies Allergy/AdvReac Type Severity Reaction Status Date / Time No Known Allergies Allergy Verified 10/09/20 21:04 Review of Systems ROS Statement: Those systems with pertinent positive or pertinent negative responses have been documented in the HPI. ROS Other: All systems not noted in ROS Statement are negative. Past Medical History Past Medical History: Hyperlipidemia, Osteoarthritis (OA), Thyroid Disorder History of Any Multi-Drug Resistant Organisms: None Reported Past Surgical History: No Surgical Hx Reported Past Psychological History: Depression Smoking Status: Never smoker Past Alcohol Use History: None Reported Past Drug Use History: None Reported - Past Family History Mother Family Medical History: Cancer Additional Family Medical History / Comment(s): Lung cancer Father Family Medical History: Diabetes Mellitus General Exam Limitations: no limitations General appearance: alert, in no apparent distress, other (This is a well- developed, well-nourished adult male patient in no acute distress. Vital signs upon presentation are temperature 97.5F, pulse 99, respirations 18, blood pressure 162/85, pulse ox 97% on room air.) Eye exam: Present: normal appearance, PERRL, EOMI. Absent: scleral icterus, conjunctival injection, periorbital swelling ENT exam: Present: normal exam, normal oropharynx, mucous membranes moist Respiratory exam: Present: normal lung sounds bilaterally. Absent: respiratory distress, wheezes, rales, rhonchi, stridor Cardiovascular Exam: Present: regular rate, normal rhythm, normal heart sounds. Absent: systolic murmur, diastolic murmur, rubs, gallop, clicks GI/Abdominal exam: Present: soft, tenderness (Generalized), normal bowel sounds. Absent: distended, guarding, rebound, rigid Neurological exam: Present: alert, oriented X3, CN II-XII intact Psychiatric exam: Present: normal affect, normal mood Skin exam: Present: warm, dry, intact, normal color. Absent: rash Course Vital Signs 10/09/20 10/09/20 17:26 20:44 Temperature 97.5 F L 97.7 F Pulse Rate 99 74 Respiratory 18 16 Rate Blood Pressure 162/85 134/76 O2 Sat by Pulse 97 97 Oximetry Medical Decision Making - Medical Decision Making 64-year-old male patient presents to the emergency department today for evaluation of abdominal pain and abnormal labs. The patient had outpatient labs done by his primary care physician yesterday. He was called today and informed that he had abnormal lipase and the come be evaluated. Patient comes in today reporting generalized abdominal pain worse over the lower abdomen. He reports a burning sensation over the skin on the right lower quadrant. Abdomen was generally tender. He is afebrile normal vital signs. Review of labs that show evidence for acute pancreatitis with a lipase of 1168. Liver enzymes and biliru bin are normal. White blood cell count is normal. Patient also shows evidence for acute kidney injury today with BUN of 29 and creatinine 1.29. Ultrasound of the right upper quadrant was obtained and showed no evidence for gallbladder disease, benign liver disease. He will be admitted to the hospital for IV hydration pain management. GI will consult. - Lab Data Result diagrams: 10/09/20 17:58 10/09/20 17:58 Lab Results 10/09/20 10/09/20 10/09/20 Range/Units 17:58 17:58 17:58 WBC 10.0 (3.8-10.6) k/uL RBC 5.37 (4.30-5.90) m/uL Hgb 15.3 (13.0-17.5) gm/dL Hct 48.8 (39.0-53.0) % MCV 90.8 (80.0-100.0) fL MCH 28.6 (25.0-35.0) pg MCHC 31.5 (31.0-37.0) g/dL RDW 14.5 (11.5-15.5) % Plt Count 261 (150-450) k/uL MPV 7.7 Neutrophils % 65 % Lymphocytes % 24 % Monocytes % 8 % Eosinophils % 2 % Basophils % 1 % Neutrophils # 6.5 (1.3-7.7) k/uL Lymphocytes # 2.4 (1.0-4.8) k/uL Monocytes # 0.8 (0-1.0) k/uL Eosinophils # 0.2 (0-0.7) k/uL Basophils # 0.1 (0-0.2) k/uL PT 9.5 (9.0-12.0) sec INR 0.9 (<1.2) APTT 22.1 (22.0-30.0) sec Sodium 139 (137-145) mmol/L Potassium 4.3 (3.5-5.1) mmol/L Chloride 107 (98-107) mmol/L Carbon Dioxide 22 (22-30) mmol/L Anion Gap 10 mmol/L BUN 29 H (9-20) mg/dL Creatinine 1.29 H (0.66-1.25) mg/dL Est GFR (CKD-EPI)AfAm 67 (>60 ml/min/1.73 sqM) Est GFR (CKD-EPI)NonAf 58 (>60 ml/min/1.73 sqM) Glucose 135 H (74-99) mg/dL Plasma Lactic Acid Fidel (0.7-2.0) mmol/L Calcium 9.0 (8.4-10.2) mg/dL Total Bilirubin 0.3 (0.2-1.3) mg/dL AST 20 (17-59) U/L ALT 30 (4-49) U/L Alkaline Phosphatase 112 (38-126) U/L Total Protein 6.4 (6.3-8.2) g/dL Albumin 3.6 (3.5-5.0) g/dL Amylase 300 H (30-110) U/L Lipase 1168 H (23-300) U/L Urine Color Urine Appearance (Clear) Urine pH (5.0-8.0) Ur Specific [place] (1.001-1.035) Urine Protein (Negative) Urine Glucose (UA) (Negative) Urine Ketones (Negative) Urine Blood (Negative) Urine Nitrite (Negative) Urine Bilirubin (Negative) Urine Urobilinogen (<2.0) mg/dL Ur Leukocyte Esterase (Negative) Urine RBC (0-5) /hpf Urine WBC (0-5) /hpf Urine Mucus (None) /hpf 10/09/20 10/09/20 Range/Units 17:58 18:06 WBC (3.8-10.6) k/uL RBC (4.30-5.90) m/uL Hgb (13.0-17.5) gm/dL Hct (39.0-53.0) % MCV (80.0-100.0) fL MCH (25.0-35.0) pg MCHC (31.0-37.0) g/dL RDW (11.5-15.5) % Plt Count (150-450) k/uL MPV Neutrophils % % Lymphocytes % % Monocytes % % Eosinophils % % Basophils % % Neutrophils # (1.3-7.7) k/uL Lymphocytes # (1.0-4.8) k/uL Monocytes # (0-1.0) k/uL Eosinophils # (0-0.7) k/uL Basophils # (0-0.2) k/uL PT (9.0-12.0) sec INR (<1.2) APTT (22.0-30.0) sec Sodium (137-145) mmol/L Potassium (3.5-5.1) mmol/L Chloride (98-107) mmol/L Carbon Dioxide (22-30) mmol/L Anion Gap mmol/L BUN (9-20) mg/dL Creatinine (0.66-1.25) mg/dL Est GFR (CKD-EPI)AfAm (>60 ml/min/1.73 sqM) Est GFR (CKD-EPI)NonAf (>60 ml/min/1.73 sqM) Glucose (74-99) mg/dL Plasma Lactic Acid Fidel 1.9 (0.7-2.0) mmol/L Calcium (8.4-10.2) mg/dL Total Bilirubin (0.2-1.3) mg/dL AST (17-59) U/L ALT (4-49) U/L Alkaline Phosphatase (38-126) U/L Total Protein (6.3-8.2) g/dL Albumin (3.5-5.0) g/dL Amylase (30-110) U/L Lipase (23-300) U/L Urine Color Light Yellow Urine Appearance Clear (Clear) Urine pH 5.5 (5.0-8.0) Ur Specific [place] 1.020 (1.001-1.035) Urine Protein Negative (Negative) Urine Glucose (UA) Negative (Negative) Urine Ketones Negative (Negative) Urine Blood Small H (Negative) Urine Nitrite Negative (Negative) Urine Bilirubin Negative (Negative) Urine Urobilinogen <2.0 (<2.0) mg/dL Ur Leukocyte Esterase Negative (Negative) Urine RBC 2 (0-5) /hpf Urine WBC <1 (0-5) /hpf Urine Mucus Rare H (None) /hpf - Radiology Data Radiology results: report reviewed, image reviewed Ultrasound of the right upper quadrant is obtained. Report reviewed in its entirety. Impression by Dr. Haq shows contracted gallbladder. No dilated ducts. Hypoechoic somewhat cystic areas in the liver suggestive of benign disease. No evidence of solid liver mass. No evidence of gallstones Disposition Clinical Impression: Acute pancreatitis Disposition: ADMITTED IP TO THIS [facility] Condition: Serious Decision to Admit Reason: Admit from EC Decision Date: 10/09/20 Decision Time: 19:50
[2020-10-09 18:20] LABS: Albumin 3.6 g/dL (3.5-5.0); Potassium 4.3 mmol/L (3.5-5.1); Total Bilirubin 0.3 mg/dL (0.2-1.3); Total Protein 6.4 g/dL (6.3-8.2)
[2020-10-09 18:30] LABS: INR 0.9 (<1.2); Partial Thromboplastin Time 22.1 sec (22.0-30.0); Prothrombin Time 9.5 sec (9.0-12.0)
[2020-10-09 18:47] LABS: Appearance,Urine Clear (Clear); Bilirubin,Urine Negative (Negative); Blood,Urine Small (Negative); Color,Urine Light Yellow; Glucose,Urine (UA) Negative (Negative); Ketones,Urine Negative (Negative); Leukocyte Esterase,Urine Negative (Negative); Mucus,Urine Rare /hpf; Nitrite,Urine Negative (Negative); PH, Urine 5.5 (5.0-8.0); Protein,Urine Negative (Negative); RBC,Urine 2 /hpf (0-5); Urobilinogen,Urine <2.0 mg/dL (<2.0); WBC,Urine <1 /hpf (0-5)
[2020-10-09 18:50] LABS: Basophils # (A) 0.1 k/uL (0-0.2); Basophils % (A) 1 %; Eosinophils # (A) 0.2 k/uL (0-0.7); Eosinophils % (A) 2 %; HCT 48.8 % (39.0-53.0); HGB 15.3 gm/dL (13.0-17.5); Lymphocytes # (A) 2.4 k/uL (1.0-4.8); Lymphocytes % (A) 24 %; MCH 28.6 pg (25.0-35.0); MCHC 31.5 g/dL (31.0-37.0); MCV 90.8 fL (80.0-100.0); Mean Platelet Volume 7.7; Monocytes # (A) 0.8 k/uL (0-1.0); Monocytes % (A) 8 %; Neutrophils # (A) 6.5 k/uL (1.3-7.7); Neutrophils % (A) 65 %; Platelet Count 261 k/uL (150-450); RBC 5.37 m/uL (4.30-5.90); RDW 14.5 % (11.5-15.5)
--- NOTE | 2020-10-09 19:34 | US ---
EXAMINATION TYPE: US abdomen limited DATE OF EXAM: 10/09/2020 COMPARISON: NONE CLINICAL HISTORY: RUQ. RUQ pain x couple weeks per patient. EXAM MEASUREMENTS: Liver Length: 13.9 cm Gallbladder Wall: 0.29 cm CBD: Obscured. Right Kidney: 10.4 x 5.5 x 5.8 cm Limited due to overlying bowel gas. Pancreas: Obscured by overlying bowel gas. Liver: Appears coarse and to have an increased echogenicity. Two complex/septated areas seen. #1 measures: 1.8 x 1.8 x 1.2 cm. #2 measures: 1.9 x 1.9 x 2.1 cm. Gallbladder: Appears partially contracted, limited evaluation. Evidence for sonographic Che's sign: No CBD: Obscured. Right Kidney: No hydronephrosis or masses seen. Cortex appears slightly thin. IMPRESSION: Contracted gallbladder. No dilated ducts. Hypoechoic somewhat cystic areas in the liver suggestive of benign disease. No evidence of solid liver mass. No evidence of gallstones.
[2020-10-09] MEDS ORDERED: SODIUM CHLORIDE 0.9% 1,000 ML IV ONE (19:36)
[2020-10-09] MEDS ORDERED: NALOXONE 0.4 MG/ML 1 ML VIAL IV PRN (20:00)
[2020-10-09] MEDS ORDERED: ONDANSETRON 4 MG/2 ML VIAL IVP PRN (20:00)
[2020-10-09] MEDS: SODIUM CHLORIDE 0.9% 1,000 ML IV SCH (20:01)
[2020-10-09] MEDS: HEPARIN SODIUM,PORCINE 5,000 UNIT/ML 1 ML VIAL SQ SCH (22:22)
[2020-10-09] MEDS: FAMOTIDINE 20 MG/2 ML VIAL IV SCH (22:22)
[2020-10-10] MEDS: SODIUM CHLORIDE 0.9% 1,000 ML IV SCH ×4 (04:30→19:16)
[2020-10-10] MEDS: FAMOTIDINE 20 MG/2 ML VIAL IV SCH (07:09)
[2020-10-10] MEDS: HEPARIN SODIUM,PORCINE 5,000 UNIT/ML 1 ML VIAL SQ SCH ×2 (07:09→19:14)
[2020-10-10] MEDS: MORPHINE SULFATE 4 MG/ML SYRINGE IV PRN ×3 (07:09→22:58)
[2020-10-10 07:15] LABS: Basophils % (A) 0 %; Eosinophils # (A) 0.2 k/uL (0-0.7); Eosinophils % (A) 2 %; HCT 44.3 % (39.0-53.0); HGB 14.3 gm/dL (13.0-17.5); Lymphocytes # (A) 2.2 k/uL (1.0-4.8); Lymphocytes % (A) 29 %; MCH 29.7 pg (25.0-35.0); MCHC 32.3 g/dL (31.0-37.0); Mean Platelet Volume 7.5; Monocytes # (A) 0.6 k/uL (0-1.0); Monocytes % (A) 8 %; Neutrophils # (A) 4.6 k/uL (1.3-7.7); Neutrophils % (A) 59 %; Platelet Count 217 k/uL (150-450); RBC 4.82 m/uL (4.30-5.90); RDW 14.1 % (11.5-15.5); WBC 7.7 k/uL (3.8-10.6)
[2020-10-10 09:58] LABS: ALT 26 U/L (10-49); AST 13 U/L (14-35); African American GFR (CKD) 81.8 (60.0-200.0); Albumin/Globulin Ratio 1.83 (1.60-3.17); Alkaline Phosphatase 64 U/L (41-126); Bilirubin, Conjugated <0.20 mg/dL (0.20-0.40); Calcium 8.2 mg/dL (8.7-10.3); Carbon Dioxide 31.2 mmol/L (21.6-31.8); Chloride 108 mmol/L (96-109); Globulin 1.8 g/dL (1.6-3.3); Glucose 75 mg/dL (70-110); Lipase 139 U/L (14-60); Non-African American GFR(CKD) 70.6 (60.0-200.0); Potassium 4.6 mmol/L (3.5-5.5); Sodium 143 mmol/L (135-145); Total Bilirubin 0.3 mg/dL (0.2-1.2); Total Protein 5.1 g/dL (6.2-8.2)
[2020-10-10] MEDS: PANTOPRAZOLE 40 MG/10 ML VIAL IVP SCH ×2 (10:12→19:14)
[2020-10-10] MEDS: LEVOTHYROXINE 75 MCG TAB PO SCH (10:12)
[2020-10-10] MEDS: lisinopriL 10 MG TAB PO SCH (10:12)
[2020-10-10] MEDS: IOPAMIDOL CONTRAST (ORAL USE) VIAL PO PRN ×2 (10:27→11:37)
--- NOTE | 2020-10-10 12:29 | CT ---
EXAMINATION TYPE: CT abdomen pelvis wo con DATE OF EXAM: 10/10/2020 HISTORY: Upper Abdominal pain with nausea, pancreatitis per CT DLP: 454 mGycm. Automated Exposure Control for Dose Reduction was Utilized. TECHNIQUE: CT scan of the abdomen and pelvis is performed with oral but without IV contrast. COMPARISON: NONE FINDINGS: Within the limitations of a non-contrast study, the following observations are made. LUNG BASES: No significant abnormality is appreciated. LIVER/GB: There is 1.8 cm low dense lesion consistent with simple thin-walled cyst in the right hepat ic lobe axial image 21. There is occasional subcentimeter hypodense focus also scattered throughout t he liver presumed benign. PANCREAS: Pancreas normal in size. No surrounding focal fluid collection or fat stranding. SPLEEN: No significant abnormality is seen. ADRENALS: No significant abnormality is seen. KIDNEYS: No renal stones or hydronephrosis is present bilaterally. BOWEL: Some Scattered diverticula in the left and sigmoid colon. No CT evidence for acute diverticuli tis. No suspicious small or large bowel dilatation. The oral contrast reaches level of the hepatic fl exure making evaluation of distal bowel suboptimal. Moderate gastric prominence in poorly distended s tomach. GENITAL ORGANS: No gross abnormality seen. LYMPH NODES: No greater than 1cm abdominal or pelvic lymph nodes are appreciated. OSSEOUS STRUCTURES: Moderate to severe disc space narrowing lumbosacral junction with mild to moderat e spurring. OTHER: Tiny fat-containing umbilical hernia. Mild fat stranding anterior left mid to lower abdominal wall especially 68 to reflect products of subcutaneous medicine injection versus small focal cellulit is correlate clinically. IMPRESSION: 1. No evidence for complication related to acute pancreatitis on noncontrast CT. 2. Possible moderate diffuse gastritis. Correlate clinically. No bowel obstruction.
--- NOTE | 2020-10-10 13:45 | P.GSCN ---
History of Present Illness Consult date: 10/10/20 History of present illness: CHIEF COMPLAINT: Abdominal pain HISTORY OF PRESENT ILLNESS: This is a 64-year-old male with a known history of hyperlipidemia, osteoarthritis and hypertension. Patient presented to the emergency room with complaints of abdominal pain and pain that radiated up into the chest. He rates the pain 7 out of 10. He reports that symptoms have been ongoing for about 3 weeks. Patient had lab work done by his primary care physician in the outpatient setting and was told that his lipase and liver enzymes were elevated and come to the emergency room for further evaluation and treatment. Patient denies any nausea or vomiting. Denies any prior history of pancreatitis. Denies any history of alcohol or drug use. Patient has been admitted for acute pancreatitis. He had a computed tomography scan of the abdomen and pelvis no evidence for complication related to acute pancreatitis on noncontrast CT. Possible moderate diffuse gastritis. No bowel obstruction. Abdominal ultrasound shows contracted gallbladder. No dilated ducts. Hypoec hoic somewhat cystic areas in the liver suggestive of benign disease. No evidence of solid liver mass. No evidence of gallstones. Patient denies any fever, chills or sweats. PAST MEDICAL HISTORY: See list. PAST SURGICAL HISTORY: See list. MEDICATIONS: See list. ALLERGIES: See list. SOCIAL HISTORY: No illicit drug use. REVIEW OF SYSTEMS: CONSTITUTIONAL: Denies fever or chills. HEENT: Denies blurred vision, vision changes, or eye pain. Denies hemoptysis CARDIOVASCULAR: Denies chest pain or pressure. RESPIRATORY: No shortness of breath. GASTROINTESTINAL: See HPI for pertinent findings HEMATOLOGIC: Denies bleeding disorders. GENITOURINARY: Denies any blood in urine or increased urinary frequency. SKIN: Denies pruitis. Denies rash. PHYSICAL EXAM: VITAL SIGNS: Reviewed GENERAL: Well-developed in no acute distress. HEENT: No sclera icterus. Extraocular movements grossly intact. Moist buccal mucosa. Head is atraumatic, normocephalic. No nasal drainage. ABDOMEN: Soft. Diffuse tenderness nondistended NEUROLOGIC: Alert and oriented. Cranial nerves II through XII grossly intact. LABORATORY DATA: WBC 7.7 hemoglobin 14.3 platelets 217 Creatinine 1.29 down to 1.1 lipase 1168 down to 139 amylase 300 LFTs normal UA negative for infection IMAGING: computed tomography scan of the abdomen and pelvis no evidence for complication related to acute pancreatitis on noncontrast CT. Possible moderate diffuse gastritis. No bowel obstruction. Abdominal ultrasound shows contracted gallbladder. No dilated ducts. Hypoechoic somewhat cystic areas in the liver suggestive of benign disease. No evidence of solid liver mass. No evidence of gallstones. ASSESSMENT: 1. Acute pancreatitis 2. Contracted gallbladder noted on abdominal ultrasound PLAN: -Keep patient nothing by mouth -Continue IV fluids -Continue pain medication as needed -Continue to monitor amylase and lipase -No surgical intervention planned Thank you for this consultation Physician Radio Tower Technician note has been reviewed by physician. Signing provider agrees with the documented findings, assessment, and plan of care. Past Medical History Past Medical History: Hyperlipidemia, Osteoarthritis (OA), Thyroid Disorder History of Any Multi-Drug Resistant Organisms: None Reported Past Surgical History: No Surgical Hx Reported Past Anesthesia/Blood Transfusion Reactions: No Reported Reaction Smoking Status: Never smoker Past Alcohol Use History: None Reported Past Drug Use History: None Reported - Past Family History Mother Family Medical History: Cancer Additional Family Medical History / Comment(s): Lung cancer Father Family Medical History: Diabetes Mellitus Medications and Allergies Home Medications Medication Instructions Recorded Confirmed Type Atorvastatin Calcium [Lipitor] 10 mg PO HS 05/30/19 10/09/20 History Levothyroxine Sodium [Synthroid] 75 mcg PO DAILY 05/30/19 10/09/20 History Omeprazole 20 mg PO DAILY 09/28/20 10/09/20 History Lisinopril [Prinivil] 10 mg PO DAILY 10/09/20 10/09/20 History Allergies Allergy/AdvReac Type Severity Reaction Status Date / Time No Known Allergies Allergy Verified 10/09/20 21:04 Surgical - Exam Vital Signs Temp Pulse Resp BP Pulse Ox 97.5 F L 99 18 162/85 97 10/09/20 17:26 10/09/20 17:26 10/09/20 17:26 10/09/20 17:26 10/09/20 17:26 Results - Labs 10/10/20 05:58 10/10/20 05:58 Abnormal Lab Results - Last 24 Hours (Table) 10/09/20 10/09/20 10/10/20 Range/Units 17:58 18:06 05:58 Anion Gap 3.80 L (4.00-12.00) mmol/L BUN 29 H (9-20) mg/dL Creatinine 1.29 H (0.66-1.25) mg/dL Glucose 135 H (74-99) mg/dL Calcium 8.2 L (8.7-10.3) mg/dL Conjugated Bilirubin <0.20 L (0.20-0.40) mg/dL AST 13 L (14-35) U/L Total Protein 5.1 L (6.2-8.2) g/dL Albumin 3.30 L (3.80-4.90) g/dL Amylase 300 H (30-110) U/L Lipase 1168 H 139 H (23-300) U/L Urine Blood Small H (Negative) Urine Mucus Rare H (None) /hpf Diabetes panel 10/09/20 10/10/20 Range/Units 17:58 05:58 Sodium 139 143 (137-145) mmol/L Potassium 4.3 4.6 (3.5-5.1) mmol/L Chloride 107 108 (98-107) mmol/L Carbon Dioxide 22 31.2 (22-30) mmol/L BUN 29 H 22.0 (9-20) mg/dL Creatinine 1.29 H 1.1 (0.66-1.25) mg/dL Glucose 135 H 75 (74-99) mg/dL Calcium 9.0 8.2 L (8.4-10.2) mg/dL AST 20 13 L (17-59) U/L ALT 30 26 (4-49) U/L Alkaline Phosphatase 112 64 (38-126) U/L Total Protein 6.4 5.1 L (6.3-8.2) g/dL Albumin 3.6 3.30 L (3.5-5.0) g/dL Calcium panel 10/09/20 10/10/20 Range/Units 17:58 05:58 Calcium 9.0 8.2 L (8.4-10.2) mg/dL Albumin 3.6 3.30 L (3.5-5.0) g/dL Pituitary panel 10/09/20 10/10/20 Range/Units 17:58 05:58 Sodium 139 143 (137-145) mmol/L Potassium 4.3 4.6 (3.5-5.1) mmol/L Chloride 107 108 (98-107) mmol/L Carbon Dioxide 22 31.2 (22-30) mmol/L BUN 29 H 22.0 (9-20) mg/dL Creatinine 1.29 H 1.1 (0.66-1.25) mg/dL Glucose 135 H 75 (74-99) mg/dL Calcium 9.0 8.2 L (8.4-10.2) mg/dL Adrenal panel 10/09/20 10/10/20 Range/Units 17:58 05:58 Sodium 139 143 (137-145) mmol/L Potassium 4.3 4.6 (3.5-5.1) mmol/L Chloride 107 108 (98-107) mmol/L Carbon Dioxide 22 31.2 (22-30) mmol/L BUN 29 H 22.0 (9-20) mg/dL Creatinine 1.29 H 1.1 (0.66-1.25) mg/dL Glucose 135 H 75 (74-99) mg/dL Calcium 9.0 8.2 L (8.4-10.2) mg/dL Total Bilirubin 0.3 0.3 (0.2-1.3) mg/dL AST 20 13 L (17-59) U/L ALT 30 26 (4-49) U/L Alkaline Phosphatase 112 64 (38-126) U/L Total Protein 6.4 5.1 L (6.3-8.2) g/dL Albumin 3.6 3.30 L (3.5-5.0) g/dL
--- NOTE | 2020-10-10 15:18 | HP ---
HISTORY AND PHYSICAL DATE OF SERVICE: 10/10/2020 CHIEF COMPLAINT: Abdominal pain. HISTORY OF PRESENT ILLNESS: This is a 64-year-old gentleman who was admitted was complaining of abdominal pain which is going on for the past several weeks. Diffuse abdominal pain also in the lower part of the abdomen. Also the patient was seen by the primary physician Dr. Horace Dodd in the outpatient setting, and amylase and lipase elevated and the patient came to [facility] because of lack of improvement. There is no history of fever, chills or rigors. The patient complained of generalized weakness at this time. PAST MEDICAL HISTORY: History of hyperlipidemia, history of DJD, hypothyroidism, history of depression. MEDICATIONS: Prior to admission, home medications are Prinivil. Lipitor, omeprazole, Synthroid. ALLERGIES: None. FAMILY HISTORY: History of lung cancer in the family. SOCIAL HISTORY: History of smoking. No history of alcohol intake. No history of substance abuse. REVIEW OF SYSTEMS: ENT: No diminished hearing, diminished vision. CARDIOVASCULAR SYSTEM: No angina. RESPIRATION: As mentioned earlier. GI: As mentioned earlier. : No dysuria. NERVOUS SYSTEM: No numbness or weakness. ALLERGY/IMMUNOLOGY: No asthma or hayfever. MUSCULOSKELETAL: As mentioned earlier. HEMATOLOGY/ONCOLOGY: No history of anemia. ENDOCRINE: Hypothyroid. CONSTITUTIONAL: As mentioned earlier. DERMATOLOGY: Negative. RHEUMATOLOGY: Negative. PSYCHIATRY: As mentioned earlier. PHYSICAL EXAMINATION: Alert and oriented x3, pulse 69, blood pressure 159/82, respirations 16, temperature 97.7, pulse ox 96% on room air. HEENT: Conjunctivae normal, oral mucosa moist. NECK: No jugular venous distention. No lymph node enlargement. CARDIOVASCULAR: S1, S2, muffled. RESPIRATION: Breath sounds diminished at the bases, a few scattered rhonchi, no crackles. ABDOMEN: Soft, mild diffuse discomfort on palpation. LEGS: No edema, no swelling. NERVOUS SYSTEM: No focal deficits. LABS: Creatinine 1.29. Amylase 300. Lipase 1168. Chest x-ray and CAT scan reviewed personally by me. ASSESSMENT: 1. Abdominal pain, possible acute pancreatitis. 2. Elevated amylase and lipase secondary to acute pancreatitis. 3. Acute renal failure, possibly prerenal, acute tubular necrosis, present on admission. 4. Contracted gallbladder on ultrasound. 5. Hyperlipidemia. 6. DJD. 7. Hypothyroid. 8. History of depression. 9. FULL CODE. RECOMMENDATION: In this 64-year-old gentleman who presented with multiple complex medical issues, will monitor the patient closely, continue with the current management. Will repeat the labs tomorrow, otherwise, surgical and gastroenterology consultation. Symptomatic treatment will be provided. Proton pump inhibitors. Guarded prognosis because of multiple complex medical issues. Further recommendations to follow. A copy of this forwarded to Dr. Dodd, who is the primary physician. MMODL / IJN: [id number] /
--- NOTE | 2020-10-10 16:55 | P.CONS ---
History of Present Illness - Reason for Consult Consult date: 10/10/20 Pancreatitis Requesting physician: Victorino Sorensen - Chief Complaint Abdominal pain - History of Present Illness 64-year-old male with a medical history significant for hyperlipidemia, hypertension and osteoarthritis who presented to the hospital due to complaints of abdominal pain. The patient reports diffuse periumbilical and lower abdominal pain with radiation into his back which has been present over the past week. The patient reports the pain is severe and burning in nature. No prior episodes of similar pain. The patient was found to have elevation in amylase at 300 and lipase at 1167 on presentation with normal liver enzymes and was admitted for acute pancreatitis. Ultrasound of the abdomen showed a contracted gallbladder. Computed tomography scan was significant for uncomplicated pancreatitis with possible gastritis. The patient denies any alcohol use. No prior episodes of pancreatitis or familial history of pancreatitis or pancreatic disease. He denies any change in bowel habits, nausea or vomiting. He does report recent treatment for an episode of diverticulitis. In addition he states he was on steroid therapy. Currently the patient is still reporting pain but feels that it is somewhat better. The patient reports a colonoscopy this past summer in 2019. Review of Systems REVIEW OF SYSTEMS: CONSTITUTIONAL: Denies any fevers, chills, weight change or fatigue. CARDIOVASCULAR: Denies any chest pain, palpitations high or low blood pressures RESPIRATORY: Denies any shortness of breath, hemoptysis or cough. GENITOURINARY: No dysuria or hematuria. MUSCULOSKELETAL: No weakness reported. SKIN: Denies any new rashes or lesions, jaundice or pallor. PSYCHIATRIC: Denies any depression or anxiety. NEUROLOGY: Denies headache, denies any new focal deficits. EARS/NOSE/THROAT: No recent hearing change, congestion, nasal discharge or sore throat. EYES: No pain in eyes, discharge or change in vision. GASTROINTESTINAL: As per HPI. Past Medical History Past Medical History: Hyperlipidemia, Osteoarthritis (OA), Thyroid Disorder History of Any Multi-Drug Resistant Organisms: None Reported Past Surgical History: No Surgical Hx Reported Past Anesthesia/Blood Transfusion Reactions: No Reported Reaction Smoking Status: Never smoker Past Alcohol Use History: None Reported Past Drug Use History: None Reported - Past Family History Mother Family Medical History: Cancer Additional Family Medical History / Comment(s): Lung cancer Father Family Medical History: Diabetes Mellitus Medications and Allergies Home Medications Medication Instructions Recorded Confirmed Type Atorvastatin Calcium [Lipitor] 10 mg PO HS 05/30/19 10/09/20 History Levothyroxine Sodium [Synthroid] 75 mcg PO DAILY 05/30/19 10/09/20 History Omeprazole 20 mg PO DAILY 09/28/20 10/09/20 History Lisinopril [Prinivil] 10 mg PO DAILY 10/09/20 10/09/20 History Allergies Allergy/AdvReac Type Severity Reaction Status Date / Time No Known Allergies Allergy Verified 10/09/20 21:04 Physical Exam Vitals: Vital Signs Temp Pulse Pulse Resp BP BP Pulse Ox 10/10/20 07:00 97.7 F 69 16 159/82 96 10/09/20 23:21 72 16 10/09/20 23:00 97.6 F 72 16 144/82 96 10/09/20 22:43 97.6 F 72 16 144/82 96 10/09/20 20:44 97.7 F 74 16 134/76 97 10/09/20 17:26 97.5 F L 99 18 162/85 97 Intake and Output 10/09/20 10/10/20 10/10/20 22:59 06:59 14:59 Other: Voiding Method Toilet Toilet # Voids 1 Weight 80.286 kg On physical examination, patient appears comfortable in no apparent distress. HEAD: Normocephalic, atraumatic. EYES: No scleral icterus. No conjunctival injection. MOUTH: No lesions, tongue midline. NECK: Trachea midline, no gross abnormalities. CHEST: Clear to auscultation with no wheezing or rhonchi appreciated. HEART: Regular rate and rhythm. ABDOMEN: Soft, moderately tender to palpation. Bowel sounds are positive. No organomegaly. No guarding or rigidity. EXTREMITIES: No pedal edema. SKIN: No rashes, no jaundice. NEUROLOGIC: Alert and oriented x3. No focal deficits. Results CBC & Chem 7: 10/10/20 05:58 10/10/20 05:58 Labs: Abnormal Lab Results - Last 24 Hours (Table) 10/09/20 10/09/20 10/10/20 Range/Units 17:58 18:06 05:58 Anion Gap 3.80 L (4.00-12.00) mmol/L BUN 29 H (9-20) mg/dL Creatinine 1.29 H (0.66-1.25) mg/dL Glucose 135 H (74-99) mg/dL Calcium 8.2 L (8.7-10.3) mg/dL Conjugated Bilirubin <0.20 L (0.20-0.40) mg/dL AST 13 L (14-35) U/L Total Protein 5.1 L (6.2-8.2) g/dL Albumin 3.30 L (3.80-4.90) g/dL Amylase 300 H (30-110) U/L Lipase 1168 H 139 H (23-300) U/L Urine Blood Small H (Negative) Urine Mucus Rare H (None) /hpf CT scan - abdomen: report reviewed (Computed tomography scan of the abdomen with uncomplicated pancreatitis with no cholelithiasis or ductal dilation noted.) Assessment and Plan (1) Acute pancreatitis Narrative/Plan: 64-year-old male presenting to the hospital with complaints of abdominal pain and admitted for acute on computed pancreatitis. Liver enzymes all within normal limits with elevation in amylase at 300 and lipase at 1168. Ultrasound of the abdomen showed a contracted gallbladder with no cholelithiasis and computed tomography scan showed uncomplicated pancreatitis with possible gastritis. He denies any excessive alcohol use, prior history of pancreatitis, familial history of pancreatitis or pancreatic disease. He does report recent steroid therapy and treatment for suspected diverticulitis. Current Visit: Yes Status: Acute Code(s): K85.90 - ACUTE PANCREATITIS WITHOUT NECROSIS OR INFECTION, UNSP SNOMED Code(s): 306891118 (2) Abdominal pain Current Visit: Yes Status: Acute Code(s): R10.9 - UNSPECIFIED ABDOMINAL PAIN SNOMED Code(s): 69931694 Plan: Supportive care Okay for liquids as tolerated Continue IV fluid hydration Encourage ambulation Autoimmune pancreatitis evaluation ordered Ultrasound and computed tomography scan reviewed Surgical service following the patient with no plans for cholecystectomy or other intervention Thank you for allowing us to participate in the care of the patient
[2020-10-10] MEDS ORDERED: ATORVASTATIN 10 MG TAB PO SCH (21:00)
[2020-10-11] MEDS: SODIUM CHLORIDE 0.9% 1,000 ML IV SCH ×2 (03:15→07:33)
[2020-10-11] MEDS: MORPHINE SULFATE 4 MG/ML SYRINGE IV PRN (05:13)
[2020-10-11] MEDS: LEVOTHYROXINE 75 MCG TAB PO SCH (05:14)
[2020-10-11 05:40] VITALS: BP 136/76; PULSE 72; RESP 16; TEMP 97.9
[2020-10-11 06:15] LABS: Basophils % (A) 0 %; Eosinophils # (A) 0.2 k/uL (0-0.7); Eosinophils % (A) 2 %; HCT 43.9 % (39.0-53.0); HGB 14.2 gm/dL (13.0-17.5); Lymphocytes # (A) 1.5 k/uL (1.0-4.8); Lymphocytes % (A) 17 %; MCH 29.4 pg (25.0-35.0); MCHC 32.5 g/dL (31.0-37.0); MCV 90.4 fL (80.0-100.0); Monocytes # (A) 0.6 k/uL (0-1.0); Monocytes % (A) 7 %; Neutrophils # (A) 6.4 k/uL (1.3-7.7); Neutrophils % (A) 72 %; Platelet Count 216 k/uL (150-450); RBC 4.85 m/uL (4.30-5.90); RDW 14.2 % (11.5-15.5); WBC 8.9 k/uL (3.8-10.6)
[2020-10-11] MEDS: PANTOPRAZOLE 40 MG/10 ML VIAL IVP SCH (07:32)
[2020-10-11] MEDS: lisinopriL 10 MG TAB PO SCH (07:32)
[2020-10-11] MEDS: HEPARIN SODIUM,PORCINE 5,000 UNIT/ML 1 ML VIAL SQ SCH (07:32)
[2020-10-11 10:17] LABS: African American GFR (CKD) 104.2 (60.0-200.0); Albumin 3.4 g/dL (3.80-4.90); Albumin/Globulin Ratio 1.89 (1.60-3.17); Anion Gap 4.5 mmol/L (4.00-12.00); BUN/Creat Ratio 15.56 Ratio (12.00-20.00); Calcium 8.3 mg/dL (8.7-10.3); Carbon Dioxide 27.5 mmol/L (21.6-31.8); Chol/HDL Ratio 3.79; Globulin 1.8 g/dL (1.6-3.3); LDL Cholesterol,Calculated 88.6 mg/dL (0.0-131.0); Non-African American GFR(CKD) 89.9 (60.0-200.0); Potassium 4.3 mmol/L (3.5-5.5); Total Bilirubin 0.5 mg/dL (0.2-1.2); Total Protein 5.2 g/dL (6.2-8.2); VLDL Calculation 42.4 mg/dL (5.00-40.00)
[2020-10-11] MEDS ORDERED: Acetaminophen-Codeine 300-30mg TAB PO PRN (11:33)
--- NOTE | 2020-10-11 11:53 | P.PN ---
Progress Note - Text Progress Note Date: 10/11/20 Patient states he feels better today. His amylase lipase have improved. On exam vital signs are stable. Abdomen soft. Patient will have an ultrasound of the abdomen performed today to evaluate for possible gallstones.
--- NOTE | 2020-10-11 15:54 | P.PN ---
Subjective Progress Note Date: 10/11/20 Principal diagnosis: Acute uncomplicated pancreatitis, abdominal pain Patient seen lying in bed abdominal pain is improved. Tolerating diet. Objective - Vital Signs Vital signs: Vital Signs Temp 97.9 F 10/11/20 04:40 Pulse 72 10/11/20 04:40 Resp 16 10/11/20 04:40 BP 136/76 10/11/20 04:40 Pulse Ox 96 10/11/20 04:40 Intake & Output 10/10/20 10/11/20 10/11/20 18:59 06:59 18:59 Intake Total 320 Balance 320 Intake: Oral 320 Other: Voiding Method Toilet Toilet Toilet # Voids 2 3 # Bowel Movements 0 - Exam On physical examination, patient appears comfortable in no apparent distress. HEAD: Normocephalic, atraumatic. EYES: No scleral icterus. No conjunctival injection. MOUTH: No lesions, tongue midline. NECK: Trachea midline, no gross abnormalities. ABDOMEN: Soft, obese. Bowel sounds are positive. No organomegaly. No guarding or rigidity. EXTREMITIES: No pedal edema. SKIN: No rashes, no jaundice. NEUROLOGIC: Alert and oriented x3. No focal deficits. - Labs CBC & Chem 7: 10/11/20 05:34 10/11/20 05:34 Labs: Abnormal Lab Results - Last 24 Hours (Table) 10/11/20 Range/Units 05:34 Calcium 8.3 L (8.7-10.3) mg/dL Total Protein 5.2 L (6.2-8.2) g/dL Albumin 3.40 L (3.80-4.90) g/dL Triglycerides 212.0 H (0.0-149.0) mg/dL VLDL Cholesterol, Calc 42.40 H (5.00-40.00) mg/dL Amylase 211 H (23-121) U/L Lipase 100 H (14-60) U/L Assessment and Plan (1) Acute pancreatitis Narrative/Plan: 64-year-old male presenting to the hospital with complaints of abdominal pain and admitted for acute on computed pancreatitis. Liver enzymes all within normal limits with elevation in amylase at 300 and lipase at 1168. Ultrasound of the abdomen showed a contracted gallbladder with no cholelithiasis and computed tomography scan showed uncomplicated pancreatitis with possible gastritis. He denies any excessive alcohol use, prior history of pancreatitis, familial history of pancreatitis or pancreatic disease. He does report recent steroid therapy and treatment for suspected diverticulitis. Status: Acute Code(s): K85.90 - ACUTE PANCREATITIS WITHOUT NECROSIS OR INFECTION, UNSP SNOMED Code(s): 648645749 (2) Abdominal pain Status: Acute Code(s): R10.9 - UNSPECIFIED ABDOMINAL PAIN SNOMED Code(s): 16953490 Plan: Supportive care Okay for liquids as tolerated Continue IV fluid hydration Encourage ambulation Recommend MRI in 6-8 weeks to check for resolution and rule out any pancreatic cyst or mass Ultrasound and computed tomography scan reviewed Surgical service following the patient with no plans for cholecystectomy or othe r intervention Thank you for allowing us to participate in the care of the patient
--- NOTE | 2020-10-12 09:13 | DS ---
DISCHARGE SUMMARY DATE OF SERVICE: 10/11/2020 FINAL DIAGNOSIS: 1. Abdominal pain, acute pancreatitis. 2. Elevated amylase and lipase secondary to acute pancreatitis. 3. Acute renal failure possibly prerenal acute tubular necrosis present on admission. 4. Contracted gallbladder on ultrasound. 5. Hypertension. 6. Degenerative joint disease. 7. Hypothyroidism. 8. History of depression. 9. FULL CODE. DISCHARGE DISPOSITION: The patient was discharged in a stable condition with a guarded prognosis. HISTORY OF PRESENT ILLNESS: This 64-year-old gentleman with past medical history of multiple medical problems was admitted with abdominal pain and features of acute pancreatitis. Patient treated symptomatically. Patient improved significantly. Patient was seen by Gastroenterology and as well as Surgery. Dr. Van recommend repeat ultrasound and outpatient appointment. Otherwise, amylase and lipase improved significantly. CT scan was noted. Creatinine also improved to 0.9, amylase is , lipase 100. Recommend the patient to follow up with the primary physician and gastroenterology to obtain a CT scan of the abdomen repeat in 1-2 months. PHYSICAL EXAMINATION: On exam, vitals are stable. Cardiovascular system normal. Abdomen is soft and nontender. Nervous system: No focal deficits. DISCHARGE INSTRUCTIONS: Discharge diet is soft and bland as tolerated. Activity limited until followup. Follow up with Dr. Dodd in 1-2 days. Follow up with Dr. Van as advised. Follow up with Gastroenterology as advised. MEDICATIONS: 1. Lipitor 10 mg q.h.s. 2. Prinivil 10 mg p.o. daily. 3. Synthroid 75 mcg p.o. daily. 4. Protonix 40 mg p.o. daily. Once again, the patient will be discharged in stable condition with guarded prognosis. MMODL / IJN: [id number] / [facility]
[2020-10-12 10:50] LABS: IgG Subclass 3 10.4 mg/dL (11.0-85.0); IgG Subclass 4 33.7 mg/dL (3.0-175.0)
== END 2020-10-11 14:05 | disposition home or self-care (01) | DRG 438 ==
LOC: EC 17:22 → 5NMEDONC 20:25
PROVIDERS: ADMIT Hospitalist; ATTEND Hospitalist
DX: K85.90 Acute pancreatitis without necrosis or infection, unspecified (principal); N17.0 Acute kidney failure with tubular necrosis; E78.5 Hyperlipidemia, unspecified; E03.9 Hypothyroidism, unspecified; I10 Essential (primary) hypertension; M19.90 Unspecified osteoarthritis, unspecified site; F32.9 Major depressive disorder, single episode, unspecified; Z79.890 Hormone replacement therapy; Z79.899 Other long term (current) drug therapy; Z80.1 Family history of malignant neoplasm of trachea, bronchus and lung; Z83.3 Family history of diabetes mellitus; Z87.891 Personal history of nicotine dependence
CPT/HCPCS: 36415; 74176; 76705; 80053; 80061; 81001; 82150; 82248; 82787; 83605; 83690; 85025; 85610; 85730; 86038; 96361; 96372; 96374; 99285

== ENCOUNTER 2020-10-29 10:40 | Observation (INO) | payer MEDICARE, OTHER ==
--- NOTE | 2020-10-29 11:14 | ED ---
General Adult HPI - General Chief complaint: Arrhythmia/Palpitations Stated complaint: heart concerns-sent by PCP Time Seen by Provider: 10/29/20 10:52 Source: patient Mode of arrival: ambulatory Limitations: no limitations - History of Present Illness Initial comments: Dictation was produced using [employer] dictation software. please excuse any gramm atical, word or spelling errors. This patient was cared for during a federal and state declared state of emergency secondary to Covid 19 Chief Complaint: 64-year-old male presents with chest pain History of Present Illness: 64-year-old male presents to the emergency department for chest pain. Patient states she's been having episodes of chest pain last night. Patient states he was sitting in warm water and a hot 12 are proximal 40 minutes when he stood up and started feeling palpitations. Shortly after he is having pressure-like sensation to substernal chest. Patient also recalls in incidence several days ago where he was putting a tarp over his boat. At that time he became so dyspneic and had some chest pressure. Saw nurse practitioner's PCPs office who did an EKG that appeared to be normal however he was sent to the emergency department for further testing. He denies any symptoms at this time. The ROS documented in this emergency department record has been reviewed and confirmed by me. Those systems with pertinent positive or negative responses have been documented in the HPI. All other systems are other negative and/or noncontributory. PHYSICAL EXAM: General Impression: Alert and oriented x3, not in acute distress HEENT: Normocephalic atraumatic, extra-ocular movements intact, pupils equal and reactive to light bilaterally, mucous membranes moist. Cardiovascular: Heart regular rate and rhythm Chest: Able to complete full sentences, no retractions, no tachypnea Abdomen: abdomen soft, non-tender, non-distended, no organomegaly Musculoskeletal: Pulses present and equal in all extremities, no peripheral edema Motor: no focal deficits noted Neurological: CN II-XII grossly intact, no focal motor or sensory deficits noted Skin: Intact with no visualized rashes Psych: Normal affect and mood ED course: 64-year-old male presents with a serious type symptoms. Signs upon arrival are within acceptable limits. EKG is unremarkable. Laboratory evaluation obtained. CBC unremarkable. Coag panel is negative. Metabolic panel is negative. Troponins negative. Chest x-ray is nonacute. Patient reevaluated at bedside and found to be stable medical condition. He is agreeable for admission for suture troponins and cardiology consultation. EKG interpretation: Ventricular rate T4, normal sinus rhythm, WA interval 166, QRS 80, QTC 422. No WA prolongation, no QTC prolongation, no ST or T-wave changes noted. Overall, this EKG is unremarkable - Related Data Home Medications Medication Instructions Recorded Confirmed Atorvastatin Calcium [Lipitor] 10 mg PO HS 05/30/19 10/29/20 Levothyroxine Sodium [Synthroid] 75 mcg PO DAILY 05/30/19 10/29/20 Lisinopril [Prinivil] 10 mg PO DAILY 10/09/20 10/29/20 Aspirin EC [Ecotrin Low Dose] 162 mg PO ONCE PRN 10/29/20 10/29/20 Baclofen 10 mg PO TID PRN 10/29/20 10/29/20 Omeprazole 20 mg PO DAILY 10/29/20 10/29/20 SUMAtriptan SUCCINATE [Imitrex] 50 mg PO DAILY PRN 10/29/20 10/29/20 Previous Rx's Medication Instructions Recorded Pantoprazole Sodium [Protonix] 40 mg PO DAILY #30 tablet. 10/11/20 Allergies Allergy/AdvReac Type Severity Reaction Status Date / Time No Known Allergies Allergy Verified 10/29/20 11:37 Review of Systems ROS Statement: Those systems with pertinent positive or pertinent negative responses have been documented in the HPI. ROS Other: All systems not noted in ROS Statement are negative. Past Medical History Past Medical History: GERD/Reflux, Hyperlipidemia, Hypertension, Osteoarthritis (OA), Thyroid Disorder History of Any Multi-Drug Resistant Organisms: None Reported Past Surgical History: No Surgical Hx Reported Past Anesthesia/Blood Transfusion Reactions: No Reported Reaction Past Psychological History: Depression Smoking Status: Never smoker Past Alcohol Use History: None Reported Past Drug Use History: None Reported - Past Family History Mother Family Medical History: Cancer Additional Family Medical History / Comment(s): Lung cancer Father Family Medical History: Diabetes Mellitus General Exam Limitations: no limitations Course Vital Signs 10/29/20 10:49 Temperature 98.9 F Pulse Rate 82 Respiratory 18 Rate Blood Pressure 149/88 O2 Sat by Pulse 96 Oximetry Medical Decision Making - Lab Data Result diagrams: 10/29/20 11:28 10/29/20 11:28 Lab Results 10/29/20 10/29/20 10/29/20 Range/Units 11:28 11:28 11:28 WBC 4.3 (3.8-10.6) k/uL RBC 5.19 (4.30-5.90) m/uL Hgb 15.3 (13.0-17.5) gm/dL Hct 46.2 (39.0-53.0) % MCV 89.1 D (80.0-100.0) fL MCH 29.5 (25.0-35.0) pg MCHC 33.1 (31.0-37.0) g/dL RDW 13.7 (11.5-15.5) % Plt Count 256 (150-450) k/uL MPV 7.2 Neutrophils % 48 % Lymphocytes % 36 % Monocytes % 8 % Eosinophils % 4 % Basophils % 3 % Neutrophils # 2.1 (1.3-7.7) k/uL Lymphocytes # 1.5 (1.0-4.8) k/uL Monocytes # 0.3 (0-1.0) k/uL Eosinophils # 0.2 (0-0.7) k/uL Basophils # 0.1 (0-0.2) k/uL PT 9.8 (9.0-12.0) sec INR 0.9 (<1.2) APTT 25.9 (22.0-30.0) sec Sodium 140 (137-145) mmol/L Potassium 4.1 (3.5-5.1) mmol/L Chloride 108 H (98-107) mmol/L Carbon Dioxide 27 (22-30) mmol/L Anion Gap 5 mmol/L BUN 12 (9-20) mg/dL Creatinine 1.02 (0.66-1.25) mg/dL Est GFR (CKD-EPI)AfAm 90 (>60 ml/min/1.73 sqM) Est GFR (CKD-EPI)NonAf 78 (>60 ml/min/1.73 sqM) Glucose 87 (74-99) mg/dL Calcium 9.0 (8.4-10.2) mg/dL Magnesium 1.6 (1.6-2.3) mg/dL Total Bilirubin 0.3 (0.2-1.3) mg/dL AST 24 (17-59) U/L ALT 23 (4-49) U/L Alkaline Phosphatase 81 (38-126) U/L Troponin I (0.000-0.034) ng/mL Total Protein 7.3 (6.3-8.2) g/dL Albumin 4.2 (3.5-5.0) g/dL Lipase 381 H (23-300) U/L /14/ Range/Units 11:28 WBC (3.8-10.6) k/uL RBC (4.30-5.90) m/uL Hgb (13.0-17.5) gm/dL Hct (39.0-53.0) % MCV (80.0-100.0) fL MCH (25.0-35.0) pg MCHC (31.0-37.0) g/dL RDW (11.5-15.5) % Plt Count (150-450) k/uL MPV Neutrophils % % Lymphocytes % % Monocytes % % Eosinophils % % Basophils % % Neutrophils # (1.3-7.7) k/uL Lymphocytes # (1.0-4.8) k/uL Monocytes # (0-1.0) k/uL Eosinophils # (0-0.7) k/uL Basophils # (0-0.2) k/uL PT (9.0-12.0) sec INR (<1.2) APTT (22.0-30.0) sec Sodium (137-145) mmol/L Potassium (3.5-5.1) mmol/L Chloride (98-107) mmol/L Carbon Dioxide (22-30) mmol/L Anion Gap mmol/L BUN (9-20) mg/dL Creatinine (0.66-1.25) mg/dL Est GFR (CKD-EPI)AfAm (>60 ml/min/1.73 sqM) Est GFR (CKD-EPI)NonAf (>60 ml/min/1.73 sqM) Glucose (74-99) mg/dL Calcium (8.4-10.2) mg/dL Magnesium (1.6-2.3) mg/dL Total Bilirubin (0.2-1.3) mg/dL AST (17-59) U/L ALT (4-49) U/L Alkaline Phosphatase (38-126) U/L Troponin I <0.012 (0.000-0.034) ng/mL Total Protein (6.3-8.2) g/dL Albumin (3.5-5.0) g/dL Lipase (23-300) U/L Disposition Clinical Impression: Chest pain Disposition: ADMITTED IP TO THIS HOSP Condition: Fair Referrals: Horace Dodd MD [Primary Care Provider] - 1-2 days Decision Time: 12:26
[2020-10-29 11:40] LABS: Basophils # (A) 0.1 k/uL (0-0.2); Basophils % (A) 3 %; Eosinophils # (A) 0.2 k/uL (0-0.7); Eosinophils % (A) 4 %; HCT 46.2 % (39.0-53.0); HGB 15.3 gm/dL (13.0-17.5); Lymphocytes # (A) 1.5 k/uL (1.0-4.8); Lymphocytes % (A) 36 %; MCH 29.5 pg (25.0-35.0); MCHC 33.1 g/dL (31.0-37.0); Mean Platelet Volume 7.2; Monocytes # (A) 0.3 k/uL (0-1.0); Monocytes % (A) 8 %; Neutrophils # (A) 2.1 k/uL (1.3-7.7); Neutrophils % (A) 48 %; Platelet Count 256 k/uL (150-450); RBC 5.19 m/uL (4.30-5.90); RDW 13.7 % (11.5-15.5); WBC 4.3 k/uL (3.8-10.6)
[2020-10-29 11:48] LABS: MCV 89.1 fL (80.0-100.0)
--- NOTE | 2020-10-29 11:50 | XR ---
EXAMINATION TYPE: XR chest 2V DATE OF EXAM: 10/29/2020 COMPARISON: 09/28/2020 HISTORY: Shortness of breath TECHNIQUE: Frontal and lateral views of the chest are obtained. FINDINGS: Scattered senescent parenchymal changes noted. Hyperinflation compatible with COPD. No evidence for infiltrate. No evidence for atelectasis. Heart size is stable. Mediastinal structures are stable and grossly unremarkable. No evidence for hilar prominence. Degenerative changes dorsal spine. IMPRESSION: 1. No evidence for acute pulmonary disease.
[2020-10-29 11:52] LABS: Albumin 4.2 g/dL (3.5-5.0); Magnesium 1.6 mg/dL (1.6-2.3); Potassium 4.1 mmol/L (3.5-5.1); Total Bilirubin 0.3 mg/dL (0.2-1.3); Total Protein 7.3 g/dL (6.3-8.2)
[2020-10-29 11:55] LABS: INR 0.9 (<1.2); Partial Thromboplastin Time 25.9 sec (22.0-30.0); Prothrombin Time 9.8 sec (9.0-12.0)
[2020-10-29] MEDS ORDERED: ASPIRIN 81 MG PO STA (12:23)
[2020-10-29] MEDS ORDERED: NITROGLYCERIN SL TABS 0.4 MG TAB SUBLINGUAL PRN (12:23)
[2020-10-29] MEDS ORDERED: SUMAtriptan succinate 50 MG TAB PO PRN (15:54)
[2020-10-29] MEDS: PANTOPRAZOLE 40 MG TABLET PO SCH (16:14)
[2020-10-29] MEDS ORDERED: ATORVASTATIN 10 MG TAB PO SCH (21:00)
--- NOTE | 2020-10-29 21:16 | P.HPIM ---
History of Present Illness H&P Date: 10/29/20 Chief Complaint: Chest Pain Patient is a 64-year-old male with a known history of hypertension, hyperlipidemia, hypothyroidism, GERD, osteoarthritis and depression and also oc casional migraine headaches presents to ER with complaints of chest pain/pressure associated with rapid heart beat lasting for about 12 to 15 minutes. Patient was sitting in warm water for about half an hour and stood up feeling palpitations. Patient felt pressure-like sensation in his chest is so meone sitting on his chest. Patient had similar episode happened when he was tugging his boat on Thursday where he felt chest pressure associated with heart beating fast lasted for several minutes and she became diaphoretic and short of breath. Patient called his PCPs clinic and was recommended to go to ER. Denied any fever or chills. Patient did have nausea. Patient denied any complaints of abdominal pain. No episodes of vomiting. No leg swelling. No cough or sputum production. Denies any recent illnesses. Chest x-ray showed no evidence of acute pulmonary disease. EKG showed normal sinus rhythm Laboratory data showed WBC 4.3, hemoglobin 15.3, platelets 256 Sodium 140 potassium 4.1, BUN 12 and creatinine 1.02 liver enzymes are not elevated Lipase is 381 Review of Systems Constitutional: Patient denies any fever or chills . No generalized weakness or weight loss. Abdomen: Patient denied nausea vomiting and diarrhea and abdominal pain. Cardiovascular: Patient denies any chest pain. Patient complained of chest pressure with shortness of breath and palpitations. Respiratory: patient denied any cough or sputum production. No shortness of breath Neurologic: Patient denied any numbness or tingling headache. Musculoskeletal: Patient denies any complaints of joint swelling or deformity. Skin: Negative Psychiatric: Negative Endocrine: No heat or cold intolerance. No recent weight gain. Genitourinary: No dysuria or hematuria. All other 14 point ROS negative except the above Past Medical History Past Medical History: GERD/Reflux, Hyperlipidemia, Hypertension, Osteoarthritis (OA), Thyroid Disorder History of Any Multi-Drug Resistant Organisms: None Reported Past Surgical History: No Surgical Hx Reported Past Anesthesia/Blood Transfusion Reactions: No Reported Reaction Past Psychological History: Depression Smoking Status: Never smoker Past Alcohol Use History: None Reported Past Drug Use History: None Reported - Past Family History Mother Family Medical History: Cancer Additional Family Medical History / Comment(s): Lung cancer Father Family Medical History: Diabetes Mellitus Medications and Allergies Home Medications Medication Instructions Recorded Confirmed Type Atorvastatin Calcium [Lipitor] 10 mg PO HS 05/30/19 10/29/20 History Levothyroxine Sodium [Synthroid] 75 mcg PO DAILY 05/30/19 10/29/20 History Lisinopril [Prinivil] 10 mg PO DAILY 10/09/20 10/29/20 History Pantoprazole Sodium [Protonix] 40 mg PO DAILY #30 tablet. 10/11/20 10/29/20 Rx Aspirin EC [Ecotrin Low Dose] 162 mg PO ONCE PRN 10/29/20 10/29/20 History Baclofen 10 mg PO TID PRN 10/29/20 10/29/20 History Omeprazole 20 mg PO DAILY 10/29/20 10/29/20 History SUMAtriptan SUCCINATE [Imitrex] 50 mg PO DAILY PRN 10/29/20 10/29/20 History Allergies Allergy/AdvReac Type Severity Reaction Status Date / Time No Known Allergies Allergy Verified 10/29/20 11:37 Physical Exam Vitals: Vital Signs Temp Pulse Pulse Resp BP BP Pulse Ox 10/29/20 14:46 98 F 68 16 150/89 97 10/29/20 13:32 97.5 F L 64 16 176/83 97 10/29/20 10:49 98.9 F 82 18 149/88 96 Intake and Output 10/29/20 10/29/20 10/29/20 06:59 14:59 22:59 Other: Weight 78.925 kg PHYSICAL EXAMINATION: Patient is lying in the bed comfortably, no acute distress, awake alert and oriented.. HEENT: Normocephalic. Neck is supple. Pupils reactive. Nostrils clear. Oral cavity is moist. Ears reveal no drainage. Neck reveals no JVD, carotid bruits, or thyromegaly. CHEST EXAMINATION: Trachea is central. Symmetrical expansion. Lung perry clear to auscultation and percussion. CARDIAC: Normal S1, S2 with no gallops. No murmurs ABDOMEN: Soft. Bowel sounds normal. No organomegaly. No abdominal bruits. Extremities: reveal no edema. No clubbing or cyanosis Neurologically awake, alert, oriented x3 with well-coordinated movements. No f ocal deficits noted Skin: No rash or skin lesions. Psychiatric: Coperative. Nonsuicidal Musculoskeletal: No joint swelling or deformity. Normal range of motion. Results CBC & Chem 7: 10/29/20 11:28 10/29/20 11:28 Labs: Abnormal Lab Results - Last 24 Hours (Table) 10/29/20 Range/Units 11:28 Chloride 108 H (98-107) mmol/L Lipase 381 H (23-300) U/L Thrombosis Risk Factor Assmnt - DVT/VTE Prophylaxis DVT/VTE Prophylaxis: Pharmacologic Prophylaxis ordered, Mechanical Prophylaxis ordered - Choose All That Apply Any of the Below Risk Factors Present?: Yes Each Factor Represents 1 point: Obesity (BMI >25) Other Risk Factors: Yes Each Risk Factor Represents 2 Points: Age 61-74 years Thrombosis Risk Factor Assessment Total Risk Factor Score: 3 Thrombosis Risk Factor Assessment Level: Moderate Risk Assessment and Plan Assessment: Atypical chest pain/pressure. Ruled out ACS. Mild acute pancreatitis Depression Hypertension Hyperlipidemia GERD Hypothyroidism Osteoarthritis DVT prophylaxis with heparin subcu No history of prior smoking and denies any alcohol use. Plan: Patient will be continued on telemetry monitoring. Serial EKG and troponins. TSH level is within normal limits. Continue with blood pressure medications and follow-up closely. Cardiology was consulted for further evaluation. Time with Patient: Greater than 30
[2020-10-30] MEDS: HEPARIN SODIUM,PORCINE 5,000 UNIT/ML 1 ML VIAL SQ SCH ×3 (00:27→15:56)
[2020-10-30 03:26] LABS: Cholesterol 192 mg/dL (<200); HDL Cholesterol 47 mg/dL (40-60); LDL Cholesterol,Calculated 117 mg/dL (0-99); Triglycerides 140 mg/dL (<150)
[2020-10-30 03:51] VITALS: RESP 16
[2020-10-30] MEDS: PANTOPRAZOLE 40 MG TABLET PO SCH (06:18)
[2020-10-30] MEDS ORDERED: LEVOTHYROXINE 75 MCG TAB PO SCH (06:30)
[2020-10-30] MEDS ORDERED: lisinopriL 10 MG TAB PO SCH (09:00)
[2020-10-30] MEDS ORDERED: ASPIRIN 81 MG PO SCH (09:00)
[2020-10-30] MEDS ORDERED: ASPIRIN 325 MG TAB PO SCH (09:00)
--- NOTE | 2020-10-30 10:50 | P.CRDCN ---
History of Present Illness History of present illness: HISTORY OF PRESENTING ILLNESS This is a pleasant 64-year-old male past medical history significant for hypertension and dyslipidemia. He follows in the office with Dr. Aguirre. We have been asked to see in consultation for chest pain. He states for the previous few days he has been having intermittent episodes of heaviness in the midsternal region. He also had taken a bath on Thursday evening and upon getting out of the top he felt extremely hot and flushed with significant palpitations. He states it felt like his heart was racing and it took about 20 minutes for things to settle down. He has had increased fatigue lately. He was seen and evaluated in the office by Dr. Aguirre and is scheduled to undergo a stress test in early November. However given his recent symptoms of chest heaviness he came to the emergency room for further evaluation. He had his chest heaviness it did not radiate to the arm, back, neck or jaw. He denied any associated shortness of breath dizziness or palpitations. He underwent an echocardiogram 09/29/2020 revealing preserved LV systolic function with ejection fraction 60-65% with mild mitral regurgitation. DIAGNOSTICS EKG reveals sinus mechanism with no acute ST or T wave abnormalities noted.. Telemetry tracings indicate sinus mechanism with no arrhythmias noted. Chest xray different acute cardiopulmonary process. Laboratory reviewed, EDC unremarkable, sodium 140, potassium 4.1, creatinine 1.02, magnesium 1.6, cardiac enzymes negative 3, LDL 117, HDL 47 and TSH 3.27. Current cardiac medications include atorvastatin 10 mg at bedtime, aspirin 162 mg when necessary for pain and lisinopril 10 mg daily. REVIEW OF SYSTEMS At the time of my exam: CONSTITUTIONAL: Denies fever or chills. CARDIOVASCULAR: Denies chest pain, shortness of breath, orthopnea, PND or palpitations. RESPIRATORY: Denies cough. GASTROINTESTINAL: Denies abdominal pain, diarrhea, constipation, nausea or vomiting. MUSCULOSKELETAL: Denies myalgias. NEUROLOGIC: Denies numbness, tingling or weakness. ENDOCRINE: Denies fatigue, weight change, polydipsia or polyurina. GENITOURINARY: Denies burning, hematuria or urgency with micturation. HEMATOLOGIC: Denies history of anemia or bleeding. PHYSICAL EXAMINATION Blood pressure 136/85 heart rate 73 afebrile and maintaining oxygen saturation on room air. CONSTITUTIONAL: No apparent distress. HEENT: Head is normocephalic. Pupils are equal, round. Sclerae anicteric. Mucous membranes of the mouth are moist. No JVD. No carotid bruit. CHEST EXAMINATION: Lungs are clear to auscultation. No chest wall tenderness is noted on palpation or with deep breathing. HEART EXAMINATION: Regular rate and rhythm. S1, S2 heard. No murmurs, gallops or rub. ABDOMEN: Soft, nontender. Positive bowel sounds. EXTREMITIES: 2+ peripheral pulses, no lower extremity edema and no calf tenderness. NEUROLOGIC EXAMINATION: Patient is awake, alert and oriented x3. ASSESSMENT Chest pain Palpitations, telemetry tracings unremarkable. Hypertension Dyslipidemia, uncontrolled on current regimen PLAN An acute coronary event has been ruled out. Recommend stress echocardiogram to assess for stress-induced cardiac ischemia. Increase atorvastatin to 40 mg daily. If stress test is normal he may be discharged from a cardiac perspective. Follow-up in the office with Dr. Aguirre. Thank you kindly for this consultation. Nurse Practitioner note has been reviewed, I agree with a documented findings and plan of care. Patient was seen and examined. Past Medical History Past Medical History: GERD/Reflux, Hyperlipidemia, Hypertension, Osteoarthritis (OA), Thyroid Disorder History of Any Multi-Drug Resistant Organisms: None Reported Past Surgical History: No Surgical Hx Reported Past Anesthesia/Blood Transfusion Reactions: No Reported Reaction Past Psychological History: Depression Smoking Status: Never smoker Past Alcohol Use History: None Reported Past Drug Use History: None Reported - Past Family History Mother Family Medical History: Cancer Additional Family Medical History / Comment(s): Lung cancer Father Family Medical History: Diabetes Mellitus Medications and Allergies Home Medications Medication Instructions Recorded Confirmed Type Atorvastatin Calcium [Lipitor] 10 mg PO HS 05/30/19 10/29/20 History Levothyroxine Sodium [Synthroid] 75 mcg PO DAILY 05/30/19 10/29/20 History Lisinopril [Prinivil] 10 mg PO DAILY 10/09/20 10/29/20 History Pantoprazole Sodium [Protonix] 40 mg PO DAILY #30 tablet. 10/11/20 10/29/20 Rx Aspirin EC [Ecotrin Low Dose] 162 mg PO ONCE PRN 10/29/20 10/29/20 History Baclofen 10 mg PO TID PRN 10/29/20 10/29/20 History Omeprazole 20 mg PO DAILY 10/29/20 10/29/20 History SUMAtriptan SUCCINATE [Imitrex] 50 mg PO DAILY PRN 10/29/20 10/29/20 History Allergies Allergy/AdvReac Type Severity Reaction Status Date / Time No Known Allergies Allergy Verified 10/29/20 11:37 Physical Exam Vitals: Vital Signs Temp Pulse Pulse Resp BP BP Pulse Ox 10/30/20 09:00 98.1 F 73 16 136/85 95 10/30/20 03:00 98.0 F 75 16 125/76 96 10/29/20 21:00 97.7 F 72 18 129/69 95 10/29/20 14:46 98 F 68 16 150/89 97 10/29/20 13:32 97.5 F L 64 16 176/83 97 10/29/20 10:49 98.9 F 82 18 149/88 96 Intake and Output 10/29/20 10/30/20 10/30/20 22:59 06:59 14:59 Other: Voiding Method Toilet Toilet Toilet # Voids 1 1 Results 10/29/20 11:28 10/29/20 11:28 Cardiac Enzymes 10/29/20 10/29/20 10/29/20 Range/Units 11:28 11:28 14:05 AST 24 (17-59) U/L Troponin I <0.012 <0.012 (0.000-0.034) ng/mL 10/29/20 Range/Units 17:53 AST (17-59) U/L Troponin I <0.012 (0.000-0.034) ng/mL Coagulation 10/29/20 Range/Units 11:28 PT 9.8 (9.0-12.0) sec APTT 25.9 (22.0-30.0) sec Lipids 10/29/20 Range/Units 11:28 Triglycerides 140 (<150) mg/dL Cholesterol 192 (<200) mg/dL HDL Cholesterol 47 (40-60) mg/dL CBC 10/29/20 Range/Units 11:28 WBC 4.3 (3.8-10.6) k/uL RBC 5.19 (4.30-5.90) m/uL Hgb 15.3 (13.0-17.5) gm/dL Hct 46.2 (39.0-53.0) % Plt Count 256 (150-450) k/uL Comprehensive Metabolic Panel 10/29/20 Range/Units 11:28 Sodium 140 (137-145) mmol/L Potassium 4.1 (3.5-5.1) mmol/L Chloride 108 H (98-107) mmol/L Carbon Dioxide 27 (22-30) mmol/L BUN 12 (9-20) mg/dL Creatinine 1.02 (0.66-1.25) mg/dL Glucose 87 (74-99) mg/dL Calcium 9.0 (8.4-10.2) mg/dL AST 24 (17-59) U/L ALT 23 (4-49) U/L Alkaline Phosphatase 81 (38-126) U/L Total Protein 7.3 (6.3-8.2) g/dL Albumin 4.2 (3.5-5.0) g/dL Current Medications Generic Name Dose Route Start Last Admin Trade Name Freq PRN Reason Stop Dose Admin Aspirin 81 mg 10/30/20 09:00 10/30/20 09:29 Aspirin 81 Mg PO 81 mg DAILY GINA Administration Atorvastatin Calcium 10 mg 10/29/20 21:00 10/29/20 20:39 Atorvastatin 10 Mg Tab PO 10 mg HS GINA Administration Heparin Sodium (Porcine) 5,000 unit 10/30/20 00:00 10/30/20 09:29 Heparin Sodium,Porcine 5,000 Unit/Ml 1 Ml Vial SQ 5,000 unit Q8HR GINA Administration Levothyroxine Sodium 75 mcg 10/30/20 06:30 10/30/20 06:17 Levothyroxine 75 Mcg Tab PO 75 mcg DAILY@0630 GINA Administration Lisinopril 10 mg 10/30/20 09:00 10/30/20 09:29 Lisinopril 10 Mg Tab PO 10 mg DAILY GINA Administration Nitroglycerin 0.4 mg 10/29/20 12:23 Nitroglycerin Sl Tabs 0.4 Mg Tab SUBLINGUAL Q5M PRN Chest Pain Pantoprazole Sodium 40 mg 10/29/20 16:00 10/30/20 06:18 Pantoprazole 40 Mg Tablet PO 40 mg [id number] GINA Administration Sumatriptan Succinate 50 mg 10/29/20 15:54 Sumatriptan Succinate 50 Mg Tab PO DAILY PRN Migraine Headache Intake and Output 10/29/20 10/30/20 10/30/20 22:59 06:59 14:59 Other: Voiding Method Toilet Toilet Toilet # Voids 1 1 10/29/20 11:28 10/29/20 11:28
--- NOTE | 2020-10-30 13:53 | P.STRESS ---
- Stress Test Note Stress Test Results/Findings: Exam Performed: stress echo exercise Exam Date: 10/30/20 Reason for Exam: CP Height: 5 ft 7 in Weight: 78.93 kg Protocol: STRESS ECHO EXERCISE Stage: 3 Duration of Exercise: 7:30 Resting Heart Rate: 69 Resting Blood Pressure: 110/74 Maximum Achieved Heart Rate: 152 Maximum Achieved Blood Pressure: 188/82 85% PMHR: 133 100% PMHR: 156 METS: 8.9 Technologist Comment: Stress Test Results/Findings: Patient underwent exercise stress echo with a Abhijit protocol treadmill stress test. Patient exercised into Stage 3 for a total of 7 minutes 30 seconds reaching a total of 8.9 METS. Patient's maximum heart rate was 152 which represented 97 % age-predicted maximum heart rate. Stress EKG portion: At baseline patient's EKG showed normal sinus rhythm. At peak exercise, EKG showed nondiagnostic 0.[address] depression in the inferior leads. Stress echo portion: 2-D echocardiogram was performed in the parasternal long, personal short, apical 2 and apical four-chamber views at rest, peak exercise and in recovery. At baseline, echocardiogram showed left ventricular ejection fraction 60 % without wall motion abnormalities. With peak exercise, echocardiogram shows improvement in left ventricular ejection fraction, increase contractility, decrease in left ventricular dimension without wall motion abnormalities consistent with a normal response to exercise. Conclusions: 1. Normal EKG and echo response to exercise without evidence of inducible ischemia. 2. Fair exercise capacity.
[2020-10-30 16:03] VITALS: BP 143/68; PULSE 75; TEMP 98.4
--- NOTE | 2020-10-30 18:23 | P.DS ---
Providers Date of admission: 10/29/20 12:23 Expected date of discharge: 10/30/20 Attending physician: Horace Dodd Consults: 10/29/20 12:23 Consult Physician Urgent Consulting Provider: Agustin Woo Consult Reason/Comments: chest pain Do you want consulting provider notified?: Yes Primary care physician: Horace Dodd Hospital Course: 64-year-old male with a known history of hypertension, hyperlipidemia, hypothyroidism, GERD, osteoarthritis, and depression with occasional migraine headaches was sent to the emergency department for further diagnostic workup of 2 intermittent episodes of chest discomfort with associated diaphoresis, nausea, and shortness of breath. no acute abnormalities and chest x-ray, serial troponins negative, stress echono acute abnormalities. Patient denies chest discomfort, shortness of breath, nausea, or associated symptoms upon discharge Assessment: atypical chest pain/pressure Mild acute pancreatitis Depression Hypertension Hyperlipidemia GERD Hypothyroidism Osteoarthritis Health Concerns: none noted Pertinent Studies: chest x-ray Stress test Stress echo Procedures: none noted Patient Condition at Discharge: Fair Plan - Discharge Summary Discharge Rx Participant: No New Discharge Prescriptions: New Atorvastatin [Lipitor] 40 mg PO HS #90 tab Continue Levothyroxine Sodium [Synthroid] 75 mcg PO DAILY Lisinopril [Prinivil] 10 mg PO DAILY Pantoprazole Sodium [Protonix] 40 mg PO DAILY #30 tablet. Aspirin EC [Ecotrin Low Dose] 162 mg PO ONCE PRN PRN Reason: Chest Pain Baclofen 10 mg PO TID PRN PRN Reason: Muscle Pain SUMAtriptan SUCCINATE [Imitrex] 50 mg PO DAILY PRN PRN Reason: Migraine Headache Discontinued Atorvastatin Calcium [Lipitor] 10 mg PO HS Omeprazole 20 mg PO DAILY Discharge Medication List Levothyroxine Sodium [Synthroid] 75 mcg PO DAILY 05/30/19 [History] Lisinopril [Prinivil] 10 mg PO DAILY 10/09/20 [History] Pantoprazole Sodium [Protonix] 40 mg PO DAILY #30 tablet. 10/11/20 [Rx] Aspirin EC [Ecotrin Low Dose] 162 mg PO ONCE PRN 10/29/20 [History] Baclofen 10 mg PO TID PRN 10/29/20 [History] SUMAtriptan SUCCINATE [Imitrex] 50 mg PO DAILY PRN 10/29/20 [History] Atorvastatin [Lipitor] 40 mg PO HS #90 tab 10/30/20 [Rx] Follow up Appointment(s)/Referral(s): Horace Dodd MD [Primary Care Provider] - 1-2 days Constantine Aguirre MD [STAFF PHYSICIAN] - 11/12/20 9:30 am Discharge Disposition: HOME SELF-CARE
[2020-10-30] MEDS ORDERED: ATORVASTATIN 40 MG TAB PO SCH (21:00)
== END 2020-10-30 18:31 | disposition home or self-care (01) ==
LOC: EC 10:40 → 1SOBS 12:23
PROVIDERS: ADMIT Family Medicine; ATTEND Family Medicine
DX: R07.89 Other chest pain (principal); K85.90 Acute pancreatitis without necrosis or infection, unspecified; I34.0 Nonrheumatic mitral (valve) insufficiency; R00.2 Palpitations; R00.0 Tachycardia, unspecified; R53.83 Other fatigue; E78.5 Hyperlipidemia, unspecified; I10 Essential (primary) hypertension; R61 Generalized hyperhidrosis; R06.02 Shortness of breath; K21.9 Gastro-esophageal reflux disease without esophagitis; E03.9 Hypothyroidism, unspecified; G43.909 Migraine, unspecified, not intractable, without status migrainosus; M19.90 Unspecified osteoarthritis, unspecified site; F32.9 Major depressive disorder, single episode, unspecified; E66.9 Obesity, unspecified; Z68.27 Body mass index [BMI] 27.0-27.9, adult; Z79.890 Hormone replacement therapy; Z79.82 Long term (current) use of aspirin; Z79.899 Other long term (current) drug therapy; Z80.1 Family history of malignant neoplasm of trachea, bronchus and lung; Z83.3 Family history of diabetes mellitus
CPT/HCPCS: 93005 ×2; 96372; 99285; 36415; 93351; 80061; 80053; 84443; 83690; 83735; 84484; 85025; 85610; 85730; 71046; G0378 ×2; J1644

== ENCOUNTER → 2020-11-05 | Outpatient (CLI) | payer MEDICARE, OTHER | END | disposition home or self-care (01) | LOC: LABWHC1 08:58 | PROVIDERS: ATTEND Nurse Practitioner | DX: Z03.818 Encounter for observation for suspected exposure to other biological agents ruled out (principal) | CPT/HCPCS: U0003; C9803 ==

== ENCOUNTER → 2020-12-14 | Outpatient (CLI) | payer MEDICARE, OTHER ==
--- NOTE | 2020-12-14 12:46 | XR ---
EXAMINATION TYPE: XR shoulder complete LT DATE OF EXAM: 12/14/2020 CLINICAL HISTORY: pain COMPARISON: NONE TECHNIQUE: Three views of the left shoulder are obtained. FINDINGS: There is no acute fracture/dislocation evident. The acromioclavicular and glenohumeral lisa int spaces appear within normal limits. The visualized ribs are intact and unremarkable. IMPRESSION: 1. There is no acute fracture or dislocation. ICD 10 NO FRACTURE, INITIAL EVALUATION
--- NOTE | 2020-12-14 12:53 | XR ---
EXAMINATION TYPE: XR thoracic spine 2V DATE OF EXAM: 12/14/2020 CLINICAL HISTORY: pain TECHNIQUE: Frontal, lateral, and swimmer's view of thoracic spine are obtained. COMPARISON: None. FINDINGS: Thoracic spine show satisfactory alignment without evidence of acute fracture or dislocatio n. Vertebral body heights are preserved. [id number] degenerative disc space narrowing is seen scattered throughout Visualized ribs are unremarkable. IMPRESSION: No acute fracture or dislocation is seen in the thoracic spine. ICD 10 NO FRACTURE, INIT IAL EVALUATION
--- NOTE | 2020-12-14 12:58 | XR ---
EXAMINATION TYPE: XR lumbar spine 2 or 3V DATE OF EXAM: 12/14/2020 CLINICAL HISTORY: pain TECHNIQUE: Three views of the lumbar spine are submitted. COMPARISON: None. FINDINGS: There are 5 lumbar type vertebral bodies identified. The lumbar spine shows satisfactory alignment w ithout evidence of acute fracture or dislocation. Vertebral body heights are within normal limits. Severe degenerative disc disease at L5-S1 complete sclerosis and ventral and dorsal spondylosis. The overlying soft tissue appears unremarkable. IMPRESSION: No acute fracture or dislocation is seen in the lumbar spine. ICD 10 NO FRACTURE, INITIAL EVALUATION
--- NOTE | 2020-12-14 13:10 | XR ---
EXAMINATION TYPE: XR cervical spine limited DATE OF EXAM: 12/14/2020 CLINICAL HISTORY: pain TECHNIQUE: 3 views of the cervical spine are submitted. COMPARISON: None. FINDINGS: There is satisfactory in alignment without evidence of acute fracture or dislocation. The pre-vertebral soft tissue appears within normal limits. Moderate degenerative disc space narrowing a nd spondylosis at C5-6 and C6-7. The C1-C2 articulation is unremarkable on the open mouth view. IMPRESSION: No acute fracture or dislocation is seen in the cervical spine.
== END | disposition home or self-care (01) ==
LOC: RADXRMAIN 10:55
PROVIDERS: ATTEND Family Medicine
DX: M54.5 Low back pain (principal); G89.29 Other chronic pain; M25.512 Pain in left shoulder; M54.2 Cervicalgia
CPT/HCPCS: 72040; 72070; 72100

== ENCOUNTER 2020-12-27 10:13 | Day surgery (SDC) | payer MEDICARE, OTHER ==
[2020-12-26 08:33] VITALS: BMI 27.3
--- NOTE | 2020-12-27 08:20 | P.GSHP ---
History of Present Illness H&P Date: 12/27/20 CHIEF COMPLAINT: Cholecystitis HISTORY OF PRESENT ILLNESS: The patient is a 65-year-old male who presents with history of epigastric including right upper quadrant abdominal pain and history of pancreatitis. He underwent diagnostic studies for the gallbladder. Separately his clinical picture was consistent with cholecystitis. Now he presents for surgical intervention. PAST MEDICAL HISTORY: Please see list PAST SURGICAL HISTORY: Please see list MEDICATIONS: Please see list ALLERGIES: Denies. SOCIAL HISTORY: Please see list FAMILY HISTORY: Please see list REVIEW OF ORGAN SYSTEMS: Gastrointestinal: Had a recent colonoscopy for which he states polyps were removed. This was less than 5 years ago. Also reports intolerance to milk. CONSTITUTIONAL: No fevers or chills. No recent weight loss. EYES: Denies any trouble with vision. No glasses. HEENT: No difficulties with hearing. No nosebleeds. No difficulty swallowing. RESPIRATORY: Denies pneumonia. Denies any troubles with breathing or dyspnea on exertion. CARDIOVASCULAR: Denies any chest pain, palpitations, or recent heart attacks. Has hyperlipidemia. Recent ECHO October 2020 was unremarkable. Has hypertension. GENITOURINARY: Denies any blood in urine or increased urinary frequency. NEUROLOGICAL: Denies any numbness or tingling along the distal extremities. No seizure disorders or headaches. MUSCULOSKELETAL: Has back pain, stiffness or joint arthritis. SKIN: No current skin cancer. No rash. PSYCHIATRIC: Denies current depression or suicidal thoughts. ENDOCRINE: Has thyroid disorders. Denies any blood sugar glucose intolerance. HEME/LYMPHATIC: Denies any lumps and bumps around the neck. No recent deep venous thrombosis. ALLERGY/IMMUNOLOGY: No immunoglobulin therapy. No immune deficiencies. BREAST: Denies current breast lumps, pain or nipple discharge. PHYSICAL EXAM: VITAL SIGNS: Afebrile vital signs stable GENERAL: Well-developed pleasant male in no acute distress. HEENT: No scleral icterus. Extraocular movements grossly intact. Moist buccal mucosa. NECK: Supple without lymphadenopathy. CHEST: Unlabored respirations. Equal bilateral excursions. CARDIOVASCULAR: Regular rate regular rhythm rhythm. Distal 2+ pulses. ABDOMEN: No peritonitis MUSCULOSKELETAL: No clubbing, cyanosis, or edema. NEURO : No focal or lateralizing signs. Cranial nerves II-12 within normal limits. PSYCH: Alert and oriented to person, place and time. SKIN: Well perfused. Good skin turgor. ASSESSMENT: 1. Epigastric and right upper quadrant abdominal pain 2. Chronic cholecystitis 3. Recent pancreatitis due to gallstones PLAN: 1. Will need a robotic cholecystectomy possible open. Benefits and risks were described. 2. Heparin for DVT prophylaxis 5000 units. 3. Antibiotic prophylaxis. Past Medical History Past Medical History: GERD/Reflux, Hyperlipidemia, Hypertension, Osteoarthritis (OA), Thyroid Disorder Additional Past Medical History / Comment(s): COVID 10/2020, migraines, hx pancreatitis, degenerative disk disease, History of Any Multi-Drug Resistant Organisms: None Reported Past Surgical History: No Surgical Hx Reported Additional Past Surgical History / Comment(s): colonoscopy Past Anesthesia/Blood Transfusion Reactions: No Reported Reaction Smoking Status: Never smoker - Past Family History Mother Family Medical History: Cancer Additional Family Medical History / Comment(s): Lung cancer Father Family Medical History: Diabetes Mellitus Medications and Allergies Home Medications Medication Instructions Recorded Confirmed Type Levothyroxine Sodium [Synthroid] 75 mcg PO DAILY 05/30/19 12/26/20 History Lisinopril [Prinivil] 10 mg PO HS 10/09/20 12/26/20 History Aspirin EC [Ecotrin Low Dose] 81 mg PO DAILY 10/29/20 12/26/20 History SUMAtriptan SUCCINATE [Imitrex] 50 mg PO DAILY PRN 10/29/20 12/26/20 History Atorvastatin [Lipitor] 40 mg PO HS #90 tab 10/30/20 12/26/20 Rx Famotidine 40 mg PO DAILY 12/26/20 12/26/20 History HYDROcodone/APAP 5-325MG [[place] 1 tab PO Q6HR PRN 12/26/20 12/26/20 History 5-325] Meloxicam [Mobic] 7.5 mg PO DAILY 12/26/20 12/26/20 History Meloxicam(Dose Unknown) 1 tab PO QAM 12/26/20 History Sildenafil Citrate [Viagra] 100 mg PO DIRECTED 12/26/20 12/26/20 History Allergies Allergy/AdvReac Type Severity Reaction Status Date / Time No Known Allergies Allergy Verified 12/26/20 08:21
[~2020-12-27 10:13] MED LIST: DEXAMETHASONE SOD PHOSPHATE 4 MG/ML 1 ML VIAL IV ONE; HEPARIN SODIUM,PORCINE 5,000 UNIT/ML 1 ML VIAL SQ PRN; LACTATED RINGERS 1,000 ML IV SCH
[2020-12-27] MEDS ORDERED: TAMSULOSIN 0.4 MG CAP.ER.24H PO STA (10:30)
[2020-12-27] MEDS ORDERED: INDOCYANINE GREEN 25 MG VIAL IV STA (10:30)
[2020-12-27] MEDS ORDERED: ACETAMINOPHEN TAB 500 MG TAB PO STA (10:30)
[2020-12-27] MEDS ORDERED: GABAPENTIN 300 MG CAP PO STA (10:30)
[2020-12-27] MEDS ORDERED: LIDOCAINE 1% (10MG/ML) FOR IV START INTRADERMA ONE (10:31)
[2020-12-27] MEDS ORDERED: MELOXICAM 7.5 MG TAB PO SCH (10:45)
[2020-12-27] MEDS: ONDANSETRON 4 MG/2 ML VIAL IVP ONE ×2 (10:48→13:31)
[2020-12-27 10:53] LABS: Basophils % (A) 0 %; Eosinophils # (A) 0.2 k/uL (0-0.7); Eosinophils % (A) 3 %; HCT 46.8 % (39.0-53.0); HGB 15.4 gm/dL (13.0-17.5); Lymphocytes # (A) 1.7 k/uL (1.0-4.8); Lymphocytes % (A) 28 %; MCH 29.2 pg (25.0-35.0); MCHC 32.9 g/dL (31.0-37.0); MCV 88.9 fL (80.0-100.0); Mean Platelet Volume 7.3; Monocytes # (A) 0.4 k/uL (0-1.0); Monocytes % (A) 6 %; Neutrophils # (A) 3.8 k/uL (1.3-7.7); Neutrophils % (A) 61 %; Platelet Count 236 k/uL (150-450); RBC 5.27 m/uL (4.30-5.90); RDW 13.8 % (11.5-15.5); WBC 6.2 k/uL (3.8-10.6)
[2020-12-27 11:55] LABS: ALT 23 U/L (4-49); AST 23 U/L (17-59); African American GFR (CKD) >90 (>60 ml/min/1.73 sqM); Albumin 4.2 g/dL (3.5-5.0); Alkaline Phosphatase 58 U/L (38-126); Anion Gap 10 mmol/L; Blood Urea Nitrogen 11 mg/dL (9-20); Carbon Dioxide 23 mmol/L (22-30); Chloride 106 mmol/L (98-107); Glucose 93 mg/dL (74-99); Non-African American GFR(CKD) 89 (>60 ml/min/1.73 sqM); Potassium 4.3 mmol/L (3.5-5.1); Sodium 139 mmol/L (137-145); Total Bilirubin 0.6 mg/dL (0.2-1.3); Total Protein 6.9 g/dL (6.3-8.2)
[2020-12-27] MEDS ORDERED: PROPOFOL 10 MG/ML 20 ML VIAL IV ONE (12:00)
[2020-12-27] MEDS ORDERED: MIDAZOLAM 2 MG/2 ML VIAL ONE (12:00)
[2020-12-27] MEDS ORDERED: GLYCOPYRROLATE 0.2 MG/ML 2 ML VIAL ONE (12:00)
[2020-12-27] MEDS ORDERED: SUCCINYLCHOLINE CHLORIDE 100 MG/5 ML SYR IV ONE (12:00)
[2020-12-27] MEDS ORDERED: LIDOCAINE 1% INJ 10MG/ML (20 ML MDV) ONE (12:00)
[2020-12-27] MEDS ORDERED: fentaNYL (PF) 50 MCG/ML 2 ML AMP ONE (12:00)
[2020-12-27] MEDS ORDERED: HYDROmorphone (PF) 1 MG/ML ONE (12:00)
[2020-12-27] MEDS ORDERED: PHENYLEPHRINE-0.9% NACL SYG 1,000 MCG/10 ML SYRINGE ONE (12:00)
[2020-12-27] MEDS ORDERED: NEOSTIGMINE 1 MG/ML 10 ML VIAL ONE (12:00)
[2020-12-27] MEDS ORDERED: ROCURONIUM 10 MG/ML (10 ML VIAL) IV ONE (12:00)
[2020-12-27] MEDS ORDERED: BUPIVACAIN-EPI 0.5%-1:200,000 30 ML VIAL SQ ONE ×2 (12:23→12:30)
[2020-12-27] MEDS ORDERED: LACTATED RINGERS 1,000 ML IV ONE (12:38)
--- NOTE | 2020-12-27 13:13 | P.OP ---
Date of Procedure: 12/27/20 Description of Procedure: SURGEON: JESICA MALCOLM MD PREOPERATIVE DIAGNOSES: 1. Symptomatic gallstone 2. History of recent pancreatitis due to gallstones 3. Hypertensive heart disease 4. Hypothyroidism 5. Gastroesophageal reflux disease POSTOPERATIVE DIAGNOSES: 1. Symptomatic gallstone 2. History of recent pancreatitis due to gallstones 3. Hypertensive heart disease 4. Hypothyroidism 5. Gastroesophageal reflux disease OPERATION: Robotic-assisted da Nate Xi laparoscopic cholecystectomy, multiport with FIREFLY ESTIMATED BLOOD LOSS: 5 mL. SPECIMENS REMOVED: Gallbladder. COMPLICATIONS: None. OPERATIVE FINDINGS: 1. No evidence of fatty liver disease INDICATIONS: The patient is a 65-year-old male who presents with symptomatic gallstones. Robotic assisted laparoscopic approach was described. Benefits and risks of the procedure including but not limited to bleeding, infection, injury to the biliary tree was described. Informed consent was obtained. DESCRIPTION OF PROCEDURE: Patient was brought to the operating room, placed in supine position. After general induction, the abdomen had been prepped and draped in standard sterile fashion. The robotic da Nate XI system was primed. After a timeout protocol was performed, the patient had been prepped and draped in standard sterile fashion. The patient was injected with indocyanine green. A 5 mm 0 degrees laparoscopic trocar entry was performed along the left upper quadrant. The abdomen insufflated to 15 mmHg pressure which was tolerated well. Diagnostic laparoscopy demonstrated no injury to bowel viscera or mesentery. The liver surface was unremarkable. Next, two 8 mm robotic ports were placed along the right upper abdomen. The camera 8-mm port was maintained along the epigastrium. Another 8 mm port was placed along the left upper abdominal wall after exchanging the 5 mm port. Please note that the ports were placed at least 10 to 15 cm away from the target anatomy of the gallbladder. The robot was docked along the left lateral abdomen. The patient was repositioned in reverse Trendelenburg position. Using a grasper for arm 3, a grasper for arm 4, including hook cautery for arm 1, the robotic system was docked and primed as described. Instruments were interchanged by the assistant office manager including hook cautery, Bovie cautery and clip appliers. I had sat at the console. Next attention was brought to the infundibulum and cystic structures. The infundibulum and cystic duct were dissected free from surrounding tissues. The cystic duct was isolated. FIREFLY was used to identify the cystic artery and cystic structures. A critical view of safety was obtained. Large PLASTIC clips were used throughout the entire case. Using a clip tea tree farmer, 2 clips were placed at the junction of the infundibulum and cystic duct. The cystic duct was divided between clips. Next, the cystic artery was similarly clipped and cauterized. Electro-Bovie cautery was used to remove the gallbladder from the hepatic fossa. Hemostasis was checked and found to be adequate. The robot was undocked. I re-scrubbed into the case. Using a 10 mm Endo Catch bag via the left upper quadrant incision, the specimen was removed from the abdominal cavity. All pneumoperitoneum instruments were evacuated from the abdominal cavity. The incisions were reapproximated using 4-0 Monocryl in an interrupted subcuticular fashion. Fascial defects were less than 8 mm in size. Please note along the trocar sites, local anesthetic was placed as a field block prior to insertion of all instruments. Liquid glue was applied to the skin. At the end of the procedure needle, sponge, and instrument count had been verified correct by the surgical technologist. The patient was transferred to postanesthesia care unit in stable condition. Intraoperative films were shared with the patient's family. Plan - Discharge Summary Discharge Rx Participant: Yes New Discharge Prescriptions: Continue Levothyroxine Sodium [Synthroid] 75 mcg PO DAILY Lisinopril [Prinivil] 10 mg PO HS Aspirin EC [Ecotrin Low Dose] 81 mg PO DAILY SUMAtriptan SUCCINATE [Imitrex] 50 mg PO DAILY PRN PRN Reason: Migraine Headache Atorvastatin [Lipitor] 40 mg PO HS #90 tab Meloxicam [Mobic] 7.5 mg PO DAILY Sildenafil Citrate [Viagra] 100 mg PO DIRECTED HYDROcodone/APAP 5-325MG [[place] 5-325] 1 tab PO Q6HR PRN PRN Reason: Pain Famotidine 40 mg PO DAILY Meloxicam(Dose Unknown) 1 tab PO QAM Discharge Medication List Levothyroxine Sodium [Synthroid] 75 mcg PO DAILY 05/30/19 [History] Lisinopril [Prinivil] 10 mg PO HS 10/09/20 [History] Aspirin EC [Ecotrin Low Dose] 81 mg PO DAILY 10/29/20 [History] SUMAtriptan SUCCINATE [Imitrex] 50 mg PO DAILY PRN 10/29/20 [History] Atorvastatin [Lipitor] 40 mg PO HS #90 tab 10/30/20 [Rx] Famotidine 40 mg PO DAILY 12/26/20 [History] HYDROcodone/APAP 5-325MG [[place] 5-325] 1 tab PO Q6HR PRN 12/26/20 [History] Meloxicam [Mobic] 7.5 mg PO DAILY 12/26/20 [History] Meloxicam(Dose Unknown) 1 tab PO QAM 12/26/20 [History] Sildenafil Citrate [Viagra] 100 mg PO DIRECTED 12/26/20 [History] Follow up Appointment(s)/Referral(s): Jesica Malcolm MD [STAFF PHYSICIAN] - 01/01/21 Patient Instructions/Handouts: *[facility] - ([facility]) Laparoscopic Cholecystectomy Post-Op Instruct, *[facility] - Managing Your Pain After Surgery Without Opioids Activity/Diet/Wound Care/Special Instructions: Recommend low-fat diet for the next 2 days. No lifting over 10 pounds in 2 weeks until Jan 10. May shower. No bath tub soaks for two weeks until Jan 10. Diet as tolerated. Use Tylenol and ibuprofen or Aleve scheduled for the next 24-48 hours for best pain relief. Use ice along incisions for today to prevent swelling. Discharge Disposition: HOME SELF-CARE
[2020-12-27 13:23] VITALS: TEMP 98.2
[2020-12-27 13:24] VITALS: RESP 16
[2020-12-27] MEDS: HYDROmorphone 0.5 MG/0.5 ML SYRINGE IVP PRN ×3 (13:31→13:59)
[2020-12-27] MEDS ORDERED: HYDROcodone/APAP 5-325MG 1 EACH TAB ONE (14:44)
[2020-12-27] MEDS ORDERED: HYDROcodone/APAP 5-325MG 1 EACH TAB PO ONE (14:45)
[2020-12-27 15:03] VITALS: BP 124/68; PULSE 77
== END 2020-12-27 15:44 | disposition home or self-care (01) ==
LOC: OR 10:13
PROVIDERS: ATTEND Surgery Plastic and Reconstructive Surgery
DX: K81.1 Chronic cholecystitis (principal); I11.9 Hypertensive heart disease without heart failure; E78.5 Hyperlipidemia, unspecified; G43.909 Migraine, unspecified, not intractable, without status migrainosus; E03.9 Hypothyroidism, unspecified; K21.9 Gastro-esophageal reflux disease without esophagitis; Z86.16 Personal history of COVID-19; Z79.890 Hormone replacement therapy; Z79.82 Long term (current) use of aspirin; Z79.1 Long term (current) use of non-steroidal anti-inflammatories (NSAID); Z79.899 Other long term (current) drug therapy
CPT/HCPCS: 88304; 80053; 85025; 47562; J2250; J1644; J1100; J2710; J0690; J2405; J2001; J3010; J1170 ×2; J2370; J0330; J2704

== ENCOUNTER → 2021-03-11 | Outpatient (CLI) | payer MEDICARE, OTHER ==
--- NOTE | 2021-03-11 14:39 | MR ---
EXAMINATION TYPE: MR lumbar spine wo con DATE OF EXAM: 03/11/2021 1:21 PM COMPARISON: NONE HISTORY: Chronic Lower back pain into right leg. Multiplanar, MultiSpin echo imaging of the lumbar spine was performed. L1-L2: Normal disc appearance without desiccation. No herniation, protrusion or disc bulging. No ca nal stenosis is present. Foramina are patent bilaterally. L2-L3: Normal disc appearance without desiccation. No herniation, protrusion or disc bulging. No ca nal stenosis is present. Foramina are patent bilaterally. L3-L4: Normal disc appearance without desiccation. No herniation, protrusion or disc bulging. No ca nal stenosis is present. Foramina are patent bilaterally. L4-L5: Normal disc appearance without desiccation. No herniation, protrusion or disc bulging. No ca nal stenosis is present. Foramina are patent bilaterally. L5-S1: Severe degenerative disc disease with posterior disc bulge. Small annular tear noted. No evide nce for herniation or protrusion. No central stenosis. Degenerative endplate marrow changes. Moderate bilateral facet joint arthropathy and foraminal encroachment. Lumbar segments are intact. No paraspinal masses are identified. Conus medullaris has a normal appe arance. IMPRESSION: 1. Degenerative disc disease and disc bulging with annular tear at L5-S1.
== END | disposition home or self-care (01) ==
LOC: RADMRIMAIN 12:30
PROVIDERS: ATTEND Orthopaedic Surgery
DX: M51.37 Other intervertebral disc degeneration, lumbosacral region (principal); M51.27 Other intervertebral disc displacement, lumbosacral region
CPT/HCPCS: 72148

== ENCOUNTER → 2021-03-25 | Outpatient (CLI) | payer MEDICARE, OTHER ==
[2021-03-25 08:21] VITALS: BP 115/84; PULSE 42; RESP 16; TEMP 97.8
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
== END ==
LOC: PNWHC3 07:59
PROVIDERS: ATTEND Hospitalist
DX: M51.36 Other intervertebral disc degeneration, lumbar region (principal); M48.062 Spinal stenosis, lumbar region with neurogenic claudication; E78.5 Hyperlipidemia, unspecified; I10 Essential (primary) hypertension; M19.90 Unspecified osteoarthritis, unspecified site; I25.2 Old myocardial infarction
CPT/HCPCS: 99211

== ENCOUNTER 2021-04-09 06:09 | Day surgery (SDC) | payer MEDICARE, OTHER ==
[2021-04-09] MEDS ORDERED: LACTATED RINGERS 1,000 ML IV SCH (06:49)
[2021-04-09 06:56] VITALS: BMI 25.4
[2021-04-09 06:58] VITALS: RESP 16; TEMP 97.5
[2021-04-09] MEDS ORDERED: ROPIVACAINE 5MG/ML 20ML VIAL ONE (07:20)
[2021-04-09] MEDS ORDERED: methylPREDNISolone ACETATE 40 MG/ML 1 ML VIAL ONE (07:20)
--- NOTE | 2021-04-09 07:55 | P.PCN ---
Date of Procedure: 04/09/21 Procedure(s) Performed: PREOPERATIVE DIAGNOSIS : 1- Lumbar spondylosis with Facet Arthropathy without myelopathy . POSTOPERATIVE DIAGNOSIS: 1- Lumbar spondylosis with Facet Arthropathy without myelopathy . PROCEDURE: Diagnostic bilateral L3 , L4 , and L5 medial branch block under fluoroscopy guidance(fluoroscopy images available in the radiology Department ) ( To target the facet joint between L4-5 , and L5-S1 ) ANESTHESIA:, Local infiltration withRopivacaine 0.5 % 6 ml only EBL: Minimal COMPLICATION: None PROCEDURE INDICATION: Chronic low back pain secondary to Facet arthropathy unresponsive to conservative treatment. PROCEDURE DESCRIPTION: the patient was seen and identified in the preop holding area , risks and benefits and possible complications of the procedure and alternative were discussed with the patient, and the patient agreed to proceed with the procedure and signed the consent and vital signs monitored during the procedure and fluoroscopy was used to maximize the benefit and accuracy of the needle placement, patient was taken to the procedure room and placed in prone position vital signs monitored in the back prepped with chlorhexidine X3 then under strict sterile technique using a right oblique fluoroscopy ,the junction of the transverse process and the superior articulating process of the right L3 , L4 , and L5 vertebra which corresponding to the fluoroscopy image of the eye of the Reyes dog on the block side for the medial branches and subsequently , after local infiltration of skin and subcu tissuies with Ropivacaine 0.5 % , one mL at each level ,then 22-gauge Q uincke-type needles , 3 needle was used , each one of them placed at the junction of the base of the transverse process and the superior articular process at the appropriate level, and the needle was advanced until the periosteum contacted, needle placement confirmed with AP oblique and lateral view and after appropriate needle placement confirmed, and after negative aspiration for heme and CSF and there was no paresthesia 1-1/2 mL of Ropivacaine 0.5% mixed with 20 mg Depo-Medrol , then half mL injected at each level after negative aspiration the needle subsequently removed and the same procedure repeated for the left side at left side at L3 , L4 and L5 levels. At the end of the procedure and the needles removed and a bandage applied after the skin was cleaned the cleaning solution patient taken to recovery room in stable condition and monitors in the recovery room for 20-30 minutes and discharged home in stable condition after discharge criteria met and patient will follow up with the pain clinic in 2-4 weeks
[2021-04-09 08:11] VITALS: BP 130/79; PULSE 63
--- NOTE | 2021-04-09 08:59 | FL ---
EXAMINATION TYPE: FL guided pain mgmt statistic DATE OF EXAM: 04/09/2021 CLINICAL HISTORY: Low back pain. TECHNIQUE: Fluoroscopy. COMPARISON: None. FINDINGS: Fluoroscopic guidance was provided during pain relief procedure performed by Dr. Toney . A total of estimated 6 seconds of fluoroscopic time was utilized during the procedure and 4 spot i mages are acquired. Images acquired shows needle localization at several levels in the lumbar spine. IMPRESSION: As Above.
== END 2021-04-09 08:19 | disposition home or self-care (01) ==
LOC: ORPAIN 06:09
PROVIDERS: ATTEND Specialist
DX: M47.816 Spondylosis without myelopathy or radiculopathy, lumbar region (principal); M54.5 Low back pain; G89.29 Other chronic pain
CPT/HCPCS: 64493; 64494; J1030; J2795; 99152

== ENCOUNTER → 2021-04-25 | Outpatient (CLI) | payer MEDICARE, OTHER ==
--- NOTE | 2021-04-25 10:06 | CT ---
EXAMINATION TYPE: CT chest wo con DATE OF EXAM: 04/25/2021 COMPARISON: Chest x-ray October 29, 2020 HISTORY: chronic cough, history of covid infection. CT DLP: 238.5 mGycm. Automated Exposure Control for Dose Reduction was Utilized. TECHNIQUE: CT scan of the thorax is performed without IV contrast. FINDINGS: LUNGS: The lungs are grossly clear, there is no concerning parenchymal mass or nodule identified. T here is no pleural effusion or pneumothorax seen. The tracheobronchial tree is patent. MEDIASTINUM: Lack of IV contrast is noted to limit evaluation for mediastinal and especially hilar ad enopathy. There are no definitive greater than 1 cm hilar or mediastinal lymph nodes. No cardiomega ly or pericardial effusion is seen. OTHER: There is 2.0 cm low dense lesion in the right hepatic lobe axial image 51 presumed benign thin -walled cyst. Gallbladder not seen likely surgically absent. Slight S-shaped scoliotic curvature. IMPRESSION: No suspicious acute or chronic pulmonary process.
== END | disposition home or self-care (01) ==
LOC: RADCTMAIN 08:48
PROVIDERS: ATTEND Family Medicine
DX: R05 Cough (principal); Z86.16 Personal history of COVID-19
CPT/HCPCS: 71250

== ENCOUNTER → 2021-05-10 | Outpatient (CLI) | payer MEDICARE, OTHER ==
--- NOTE | 2021-05-11 03:44 | MR ---
EXAMINATION TYPE: MR brain wo/w con DATE OF EXAM: 05/10/2021 COMPARISON: None HISTORY: Headaches. CONTRAST: Standard multiplanar, multisequence MRI departmental protocol utilizing 7 mL intravenous Gadavist kristopher olinium contrast. Ventricles have normal size. There is no mass effect nor midline shift. There is no sign of intracran ial hemorrhage. The diffusion images show no sign of an acute infarct. There is mucosal thickening in the maxillary sinuses. The mcgarry-white matter structures have fairly normal signal pattern. There is no evidence of cerebral edema. Corpus callosum appears normal. Sella turcica is normal. The brainstem is intact. There is no evidenc e of a posterior fossa mass. The contrast images show no pathologic enhancement. There is normal enhancement of the venous sinuses . IMPRESSION: Negative MR scan of the brain. Maxillary sinusitis.
== END | disposition home or self-care (01) ==
LOC: RADMRIMAIN 07:34
PROVIDERS: ATTEND Nurse Practitioner
DX: J32.0 Chronic maxillary sinusitis (principal)
CPT/HCPCS: 70553; A9585

== ENCOUNTER 2021-05-17 | Day surgery (SDC) | payer MEDICARE, OTHER | END 2021-05-17 07:36 | disposition home or self-care (01) | CPT/HCPCS: 64493; 64494; J3301; Q9966; J2795 ==

== ENCOUNTER → 2021-06-03 | Outpatient (CLI) | payer MEDICARE, OTHER ==
[2021-06-03 08:20] VITALS: BP 123/78; PULSE 72; RESP 16; TEMP 97.7
--- NOTE | 2021-06-03 08:20 | P.PN ---
Subjective Progress Note Date: 06/03/21 This is a 65-year-old gentleman with history of chronic axial lower back pain with no radiation to the lower extremities and no paresthesia in the lower extremities. The patient also denies any weakness in his legs. He had 2 lumbar diagnostic medial branch blocks which resulted only in 40% of pain relief for a few hours after the procedure. The patient still takes [place] 7.5 mg 3 times a day as needed for his pain and he receives that from his primary care physician. The patient states that he is scheduled to have surgery on his lumbar spine by Dr. Martínez in July of this year. Patient denies new-onset weakness, bowel/bladder incontinence, or any other s igns or symptoms of cauda equina syndrome. There are no signs of acute intoxication, and no indications of medication diversion or overuse. In addition to above, 13-point review of systems is also negative for chest pain, shortness of breath, changes in vision, changes in hearing, new onset weakness, abdominal pain, diarrhea, extreme fatigue, malaise, fever, skin changes, homicidal or suicidal ideation, or bowel or bladder incontinence. Vital Signs: Reviewed in EMR Gen: AAOx3, NAD HEENT: PERRLA,hearing grossly normal Pulm: resp unlabored Neck: supple, trachea midline Neuro exam of the lower extremities: Decreased knee flexion and extension strength to 4 out of 5 bilaterally but normal ankle flexion and extension bilaterally. Normal hip flexion adduction and abduction strength bilaterally. Tenderness in the paravertebral musculature: Positive tenderness in the lumbar paravertebral musculature bilaterally Neuro: CN II-XII grossly intact, Imaging: Reviewed in EMR/chart Assessment: Lumbar DDD Lumbar spondylosis without myelopathy Plan: 1. Explanation: Opioid and psychological risk scores were reviewed. Diagnoses, prognoses, and multiple treatment options including but not limited to physical therapy, interventional therapies, adjuvant medical therapies, narcotic medication therapies, and surgery were discussed with the patient and all questions were answered to the patient's satisfaction. 2. Opioid agreement: Signed with the patient and the patient is warned not to use opioids while driving or before driving and not to combine opioids with benzodiazepines or alcohol. 3. Counseling: The patient was counseled extensively on SMOKING CESSATION, BODY MASS INDEX, EXERCISE. Specifically, the patient was instructed regarding the importance of smoking cessation, obesity, and exercise in the context of both chronic pain and overall health. 4. Procedures: Patient failed to respond to a diagnostic lumbar medial branch block. He will proceed with lumbar fusion by Dr. Martínez. 5. Consultations: None 6. Investigations: None 7. Medications: Continue with current medications prescribed by his primary care physician 8. Disposition: Return to clinic as needed after his back surgery
== END ==
LOC: PNWHC3 08:03
PROVIDERS: ATTEND Anesthesiology
DX: M51.36 Other intervertebral disc degeneration, lumbar region (principal); M47.816 Spondylosis without myelopathy or radiculopathy, lumbar region; Z71.82 Exercise counseling
CPT/HCPCS: 99211

== ENCOUNTER → 2021-06-06 | Outpatient (CLI) | payer MEDICARE, OTHER ==
--- NOTE | 2021-06-06 12:35 | XR ---
EXAMINATION TYPE: XR chest 2V DATE OF EXAM: 06/06/2021 COMPARISON: 10/29/2020 HISTORY: cough TECHNIQUE: Frontal and lateral views of the chest are obtained. FINDINGS: There is no focal air space opacity, pleural effusion, or pneumothorax seen. The cardiac silhouette size is within normal limits. The osseous structures are intact. IMPRESSION: No acute cardiopulmonary process.
== END | disposition home or self-care (01) ==
LOC: RADXRMAIN 08:50
PROVIDERS: ATTEND Nurse Practitioner
DX: R05 Cough (principal)
CPT/HCPCS: 71046

== ENCOUNTER → 2021-08-02 | Outpatient (CLI) | payer MEDICARE, OTHER | END | disposition home or self-care (01) | LOC: LABPAT 11:00 | PROVIDERS: ATTEND Orthopaedic Surgery | DX: Z01.812 Encounter for preprocedural laboratory examination (principal); M47.816 Spondylosis without myelopathy or radiculopathy, lumbar region; Z22.322 Carrier or suspected carrier of Methicillin resistant Staphylococcus aureus | CPT/HCPCS: 87070 ==

== ENCOUNTER 2021-08-20 09:29 | Observation (INO) | payer MEDICARE, OTHER ==
[2021-08-16 10:31] VITALS: BMI 24.3
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
[~2021-08-20 09:29] MED LIST changes: +ACETAMINOPHEN TAB 500 MG TAB PO PRN; +GABAPENTIN 300 MG CAP PO PRN; -HEPARIN SODIUM,PORCINE 5,000 UNIT/ML 1 ML VIAL SQ PRN; -LACTATED RINGERS 1,000 ML IV SCH; +ONDANSETRON 4 MG/2 ML VIAL IVP PRN; +TRANEXAMIC ACID 1,000 MG in SODIUM CHLORIDE 0.9% 100 ML IVPB PRN
[2021-08-20] MEDS ORDERED: LIDOCAINE 1% (10MG/ML) FOR IV START INTRADERMA ONE (10:55)
[2021-08-20] MEDS: LACTATED RINGERS 1,000 ML IV SCH ×2 (10:58→23:34)
--- NOTE | 2021-08-20 11:11 | P.PN ---
Progress Note - Text Progress Note Date: 08/20/21 H&P UPDATE No changes in the last 30 days. Pt s/e in pre op. All questions answered. Discussed risks and benefits again he is willing to proceed. Site was marked, consent was confirmed. Dept of anesthesia deemed fit for surgery. WBD abx will be given. TXA will be given. Pt ready and willing to proceed with surgery.
[2021-08-20] MEDS ORDERED: SODIUM CHLORIDE 0.9% 100 ML BAG ONE (11:40)
[2021-08-20] MEDS ORDERED: NEOSTIGMINE 1 MG/ML 10 ML VIAL ONE (11:40)
[2021-08-20] MEDS ORDERED: GLYCOPYRROLATE 0.2 MG/ML 2 ML VIAL ONE (11:40)
[2021-08-20] MEDS ORDERED: LIDOCAINE 1% INJ 10MG/ML (20 ML MDV) ONE (11:40)
[2021-08-20] MEDS ORDERED: SUCCINYLCHOLINE CHLORIDE 100 MG/5 ML SYR IV ONE (11:40)
[2021-08-20] MEDS ORDERED: ROCURONIUM 10 MG/ML (5 ML VIAL) IV ONE (11:40)
[2021-08-20] MEDS ORDERED: PROPOFOL 10 MG/ML 20 ML VIAL IV ONE (11:40)
[2021-08-20] MEDS ORDERED: fentaNYL (PF) 50 MCG/ML 2 ML AMP ONE (11:40)
[2021-08-20] MEDS ORDERED: TRANEXAMIC ACID 1,000 MG/10 ML VIAL ONE (11:40)
[2021-08-20] MEDS ORDERED: KETAMINE 10 MG/ML 20 ML VIAL ONE (11:40)
[2021-08-20] MEDS ORDERED: MIDAZOLAM 2 MG/2 ML VIAL ONE (11:40)
[2021-08-20] MEDS ORDERED: BUPIVACAINE (PF) 0.25% 30 ML VIAL SQ ONE ×3 (13:00)
[2021-08-20] MEDS ORDERED: GELATIN SPONGE,ABSORB (LARGE) 1 EACH SPONGE MISCELLANE ONE (13:00)
[2021-08-20] MEDS ORDERED: THROMBIN (BOVINE) 5,000 UNIT VIAL TOPICAL ONE (13:01)
[2021-08-20] MEDS ORDERED: LACTATED RINGERS 1,000 ML IV ONE ×3 (13:12→15:08)
[2021-08-20] MEDS ORDERED: VANCOMYCIN 1,000 MG VIAL MISCELLANE ONE (14:47)
--- NOTE | 2021-08-20 15:30 | P.PN ---
Progress Note - Text Progress Note Date: 08/20/21 Brief Post Op: Surgeon: Tanya Pre op dx; L5-S1 spondylosis severe with radiculopathy Post op dx: Name Procedure: L5-S1 MIS TLIF with use of [place] navigation Anesthesia: GETA EBL: 150 Fluids: 2000 UO: 500 Dispo: Stable to PACU Post op Plan: Post operative noncontrasted CT scan Encourage ambulation IS 10x/hr Teds/SCDs Pain control LSO brace Anticoagulation to start tomorrow
[2021-08-20] MEDS ORDERED: ONDANSETRON 4 MG/2 ML VIAL IVP PRN (15:38)
[2021-08-20] MEDS ORDERED: HYDROcodone/APAP 10-325MG 1 EACH TAB PO PRN (15:38)
[2021-08-20] MEDS ORDERED: SENNOSIDES-DOCUSATE SODIUM 1 EACH TAB PO PRN (15:38)
[2021-08-20] MEDS ORDERED: MAGNESIUM HYDROXIDE 2,400 MG/10 ML CUP PO PRN (15:38)
[2021-08-20] MEDS: HYDROmorphone 0.5 MG/0.5 ML SYRINGE IVP PRN ×2 (15:41→15:53)
[2021-08-20] MEDS: fentaNYL (PF) 50 MCG/ML 2 ML AMP IV ONE ×2 (15:45→15:49)
--- NOTE | 2021-08-20 15:46 | FL ---
EXAMINATION TYPE: FL guidance operating room, XR lumbar spine 2 or 3V DATE OF EXAM: 08/20/2021 CLINICAL HISTORY: Low back pain. TECHNIQUE: Fluoroscopy. Intraoperative 2 views lumbar spine. COMPARISON: Outside lumbar spine x-ray December 20, 2020. FINDINGS: Fluoroscopic guidance was provided during lumbar fusion procedure performed by Dr. Goodman pena. A total of 57 seconds of fluoroscopic time was utilized during the procedure and two spot intra operative images are acquired. Intraoperative images obtained show posterior to pedicular rods and screws transfixing L5-S1 levels w ith metallic disc material. Satisfactory alignment is seen on intraoperative images obtained. IMPRESSION: As Above.
[2021-08-20] MEDS ORDERED: IV FLUID CONTINUATION 1,000 ML IV ONE (16:21)
[2021-08-20] MEDS: HYDROmorphone 1 MG/ML 1 ML SYRINGE IVP PRN (17:01)
[2021-08-20] MEDS: ACETAMINOPHEN TAB 325 MG TAB PO SCH ×2 (17:01→23:32)
[2021-08-20] MEDS: GABAPENTIN 300 MG CAP PO SCH ×2 (17:06→23:32)
[2021-08-20] MEDS: oxyCODONE-APAP 7.5-325MG 1 EACH TAB PO PRN (19:26)
--- NOTE | 2021-08-20 19:40 | P.CON ---
Consult Note - . Consult date: 08/20/21 Assessment/Plan:: Medical consultation: For medical management of GERD/reflux, hyperlipidemia, hypertension, hypothyroidism, and several comorbidities HPI: 65-year-old male with significant past medical history of hypertension, hyperlipidemia, GERD/reflux, osteoarthritis, hypothyroidism, history of pancreatitis, history of myocardial infarction's, history of Covid-03 November 2020, and L5 to S1 spondylosis, stenosis with radiculopathy. Patient underwent L5 to S1 transforaminal interbody fusion with Dr. Martínez. 08/20/2021 Patient is seen and examined postop day 1 of L5 to S1 transforaminal interbody fusion. Patient resting in bed, patient complaint of severe lower back discomfort, and intermittent nausea with oral pain medications. [address] 10/325 discontinued, will attempt to use Percocet 7.5/325, for possible toleration. Encourage patient to use incentive's from another 10 times per hour, and to attempt oral pain medications. Will initiate home medications hold off on anticoagulation until tomorrow. Physical assessment: General:Alert and cooperative HEENT:Normocephalic, nontraumatic, PERRLA, normal oral pharynx Heart: Regular rate and rhythm, normal S1, S2 and no murmur/gallop. Lungs: Even and unlabored respirations, diminished anterior and posterior Extremities: Skin warm and dry without acute lesions, coloration, temperature, skin intact, no tenderness or erythema Skin: Normal pink warm and dry, incisional site dressing intact without drainage Psychiatric: Cooperative, and appropriate Assessment: postop day 1 of L5 to S1 transforaminal interbody fusion Hypertension Hyperlipidemia GERD/reflux Osteoarthritis Hypothyroidism History of pancreatitis History of myocardial infarction's History of Covid 19 infection October 2020 Full code Plan: Continue home medications Obtain chest x-ray in a.m. with additional labs Attempt to use Percocet 7.5/325, for possibility of decreased pain intensity and GI tolerance Encouraged to use incentive from her 10 times per hour Encourage patient in a.m. to work with physical therapy/occupational therapy Continue medical management Further recommendations, based on patient's clinical condition
[2021-08-20] MEDS: lisinopriL 10 MG TAB PO SCH (20:05)
[2021-08-20] MEDS: ATORVASTATIN 40 MG TAB PO SCH (20:05)
[2021-08-21] MEDS: HYDROmorphone 1 MG/ML 1 ML SYRINGE IVP PRN ×3 (04:10→11:03)
[2021-08-21] MEDS: ACETAMINOPHEN TAB 325 MG TAB PO SCH ×4 (05:53→23:56)
[2021-08-21] MEDS: oxyCODONE-APAP 7.5-325MG 1 EACH TAB PO PRN ×4 (05:54→23:57)
[2021-08-21] MEDS: LEVOTHYROXINE 75 MCG TAB PO SCH (07:30)
[2021-08-21] MEDS: GABAPENTIN 300 MG CAP PO SCH ×3 (07:31→21:11)
[2021-08-21] MEDS: FAMOTIDINE 20 MG TAB PO SCH (07:31)
--- NOTE | 2021-08-21 07:31 | P.PN ---
Subjective Progress Note Date: 08/21/21 Principal diagnosis: L5-S1 severe spondylosis with radiculopathy Patient seen and examined somewhat painful this morning however doing fairly well he is sitting up in bed. His pain medications that she will fluoroscopy the little bit last night which helped him quite a bit. He states no pain in his lower extremities states no radicular pain no bowel or bladder issues he is urinating without any difficulties he has been up to the bathroom several times. Is not a bowel movement but he is passing gas. Denies any fevers chills or some breath or chest pain at this time. Objective - Vital Signs Vital signs: Vital Signs Temp 97.6 F 08/21/21 01:34 Pulse 86 08/21/21 01:34 Resp 17 08/21/21 01:34 BP 113/67 08/21/21 01:34 Pulse Ox 95 08/21/21 01:34 Intake & Output 08/20/21 08/21/21 08/21/21 18:59 06:59 18:59 Intake Total 2550 Output Total 260 250 Balance 2290 -250 Weight 70.4 kg Intake: IV 2550 Output: Urine 110 250 Estimated Blood Loss 150 Other: # Voids 2 - Exam Patient is alert and oriented 3 appears well-nourished well-hydrated is in no acute distress. They does not appear septic. On exam the patient has no tenderness to palpation of her thoracic or lumbar spine. There is no edema or ballottement sign. Lower extremities with 4+ out of 5 strength in all major muscle groups, improving no focal deficits Upper extremities show 5/5 strength in all major muscle groups. There is FROM that is painless of the b/l UE and LE in all major joints. They are intact to light touch sensation in L2 to S1 nerve distribution. Patient has palpable dorsalis pedis was posterior tibial pulses. Compartments are soft and compressible. Patient shows a negative Homans, Redd's, negative Babinski's negative clonus bilaterally. negative straight leg raise bilaterally. No tensioning signs. Cranial nerves II through XII are grossly intact. Overall alignment is well-maintained in the sagittal coronal planes. Dressings are clean dry and intact incisions are clean dry and intact no erythema or ecchymosis or edema no fluctuance - Constitutional General appearance: Present: cooperative - EENT Eyes: Present: PERRLA - Neurologic Neurologic: Present: CNII-XII intact - Psychiatric Psychiatric: Present: A&O x's 3 - Imaging and Cardiology CT is reviewed of the lumbar spine which reveals status post L5-S1 T lift cages and hardware in good position no complicating process seen. Assessment and Plan Assessment: 65-year-old male postoperative day 1 L5-S1 minimally invasive TLIF 1. L5-S1 severe spondylosis 2. L5-S1 stenosis with radiculopathy 3. Neurogenic claudication 4. Low back pain Plan: -Appreciate it systems analyst consultant and team management. -Activity: Ambulate QID, OOB all meals, up and about, limit lifting bending twisting to less than 5 lbs. Use walker or cane if needed for stability. -Daily PT/OT, increase ambulation strength and balance. -Brace when up and about, not needed in bed or chair -Pain control: Adequate at this time -Meds: reviewed -GI ppx: senna, Miralax -DVT PPX: OK to restart Heparin tonight -Hygiene: Shower today. Maintain dressing clean and dry. Meticulous cleaning after BMs away from incision site -Encourage IS 10x/hr -Dispo: Would like for patient to go home today with home health care we will see how he does with physical therapy he may need one extra day.
[2021-08-21 07:51] LABS: African American GFR (CKD) >90 (>60 ml/min/1.73 sqM); Anion Gap 7 mmol/L; Blood Urea Nitrogen 14 mg/dL (9-20); Calcium 8.5 mg/dL (8.4-10.2); Carbon Dioxide 25 mmol/L (22-30); Chloride 106 mmol/L (98-107); Glucose 101 mg/dL (74-99); Magnesium 1.6 mg/dL (1.6-2.3); Non-African American GFR(CKD) >90 (>60 ml/min/1.73 sqM); Potassium 4.1 mmol/L (3.5-5.1); Sodium 138 mmol/L (137-145)
--- NOTE | 2021-08-21 08:23 | CT ---
EXAMINATION TYPE: CT lumbar spine wo con DATE OF EXAM: 08/21/2021 7:02 AM COMPARISON: MRI lumbar spine March 11, 2021 HISTORY: S/P L5-S1 fusion CT DLP: 806.2 mGycm Automated exposure control for dose reduction was used. Unenhanced CT of the lumbar spine was performed. Bone and soft tissue window settings are submitted as well as coronal and sagittal reconstructions. There are 5 lumbar-type vertebra redemonstrated. Posterior interpedicular rods and screws transfix th e L5-S1 levels bilaterally after recent surgery. Metallic disc material L5-S1 level now present. Stab le moderate disc space narrowing and alignment at this level. Vertebral body heights and disc space h eights above the L5 level remains stable and satisfactory. Evidence of recent surgery with posterior subcutaneous gas and ill-defined fluid in the deep subcutaneous tissue. There are overlying vertical skin abby along the right and left aspects posteriorly. Persistent round oval vertical lucent lesi on in the L5 vertebra sagittal image 28 presumed benign. Spinal canal is preserved. Axial images show facet arthropathy lower lumbar levels. Artifact from metallic hardware is present. Some subcutaneous gas into the right neural foramina at L5-S1 level is seen. No suspicious intra-abdo moises findings. IMPRESSION: Postsurgical fusion changes L5-S1 level with stable and satisfactory alignment.
--- NOTE | 2021-08-21 08:52 | XR ---
EXAMINATION TYPE: XR chest 1V DATE OF EXAM: 08/21/2021 COMPARISON: 06/06/2021 INDICATION: Cough TECHNIQUE: Single frontal view of the chest is obtained. FINDINGS: The heart size is normal. The pulmonary vasculature is normal. There is some slight silhouetting of the left diaphragm. A posterior infiltrate should be considered. Lungs otherwise appear clear. IMPRESSION: 1. Silhouetting the left diaphragm. A small retrocardiac atelectasis could be considered. Follow-up c an be performed as clinically indicated.
[2021-08-21] MEDS ORDERED: Magnesium Replacement Protocol 1 EACH MISC MISCELLANE PRN (08:59)
[2021-08-21] MEDS: MAGNESIUM SULFATE-D5W PMX 1 GM in DEXTROSE/WATER 1 100ML.BAG IVPB SCH ×2 (10:57→13:06)
[2021-08-21] MEDS: CYCLOBENZAPRINE 5 MG TAB PO PRN (11:03)
[2021-08-21 11:16] LABS: Basophils # (A) 0.01 X 10*3/uL (0.00-0.10); Basophils % (A) 0.1 %; Eosinophils # (A) 0.01 X 10*3/uL (0.04-0.35); Eosinophils % (A) 0.1 %; HCT 38.7 % (39.6-50.0); HGB 12.3 g/dL (13.0-17.0); Lymphocytes # (A) 1.47 X 10*3/uL (0.90-5.00); Lymphocytes % (A) 11.6 %; MCH 29.6 pg (27.0-32.0); MCHC 31.8 g/dL (32.0-37.0); Mean Platelet Volume 10.5 fL (9.5-12.2); Monocytes # (A) 1.17 X 10*3/uL (0.20-1.00); Monocytes % (A) 9.2 %; Neutrophils # (A) 9.95 X 10*3/uL (1.80-7.70); Neutrophils % (A) 78.4 %; Platelet Count 238 X 10*3/uL (140-440); RBC 4.16 X 10*6/uL (4.40-5.60); RDW 14.3 % (11.5-14.5); WBC 12.69 X 10*3/uL (4.50-10.00)
--- NOTE | 2021-08-21 19:14 | P.CON ---
Consult Note - . Consult date: 08/21/21 Assessment/Plan:: Medical consultation: For medical management of GERD/reflux, hyperlipidemia, hypertension, hypothyroidism, and several comorbidities HPI: 65-year-old male with significant past medical history of hypertension, hyperlipidemia, GERD/reflux, osteoarthritis, hypothyroidism, history of pancreatitis, history of myocardial infarction's, history of Covid-03 November 2020, and L5 to S1 spondylosis, stenosis with radiculopathy. Patient underwent L5 to S1 transforaminal interbody fusion with Dr. Martínez. 08/20/2021 Patient is seen and examined postop day 2 of L5 to S1 transforaminal interbody fusion. Patient resting in bed, patient complaint of severe lower back discomfort, and intermittent nausea with oral pain medications. Aurora 10/325 discontinued, will attempt to use Percocet 7.5/325, for possible toleration. Encourage patient to use incentive's from another 10 times per hour, and to attempt oral pain medications. Will initiate anticoagulation therapy today Physical assessment: General:Alert and cooperative HEENT:Normocephalic, nontraumatic, PERRLA, normal oral pharynx Heart: Regular rate and rhythm, normal S1, S2 and no murmur/gallop. Lungs: Even and unlabored respirations, diminished anterior and posterior Extremities: Skin warm and dry without acute lesions, coloration, temperature, skin intact, no tenderness or erythema Skin: Normal pink warm and dry, incisional site dressing intact without drainage Psychiatric: Cooperative, and appropriate Assessment: postop day 1 of L5 to S1 transforaminal interbody fusion Hypertension Hyperlipidemia GERD/reflux Osteoarthritis Hypothyroidism History of pancreatitis History of myocardial infarction's History of Covid 19 infection October 2020 Full code Plan: Continue home medications Reviewed of diagnostic labs and testing Adequate pain control Encouraged to use incentive from her 10 times per hour Encourage patient in a.m. to work with physical therapy/occupational therapy Continue medical management Further recommendations, based on patient's clinical condition Medically cleared for discharge in a.m.
[2021-08-21] MEDS: SODIUM CHLORIDE 0.9% 1,000 ML IV SCH (19:50)
[2021-08-21] MEDS: lisinopriL 10 MG TAB PO SCH (21:11)
[2021-08-21] MEDS: ATORVASTATIN 40 MG TAB PO SCH (21:11)
[2021-08-21] MEDS: HYDROmorphone 0.5 MG/0.5 ML SYRINGE IVP PRN (21:11)
[2021-08-21] MEDS: HEPARIN SODIUM,PORCINE/PF 5,000 UNIT/0.5 ML SYRINGE SQ SCH (21:11)
[2021-08-21] MEDS: LACTATED RINGERS 1,000 ML IV SCH (22:22)
[2021-08-22 03:37] VITALS: PULSE 71
[2021-08-22 03:52] LABS: Basophils % (A) 0 %; Eosinophils # (A) 0.2 k/uL (0-0.7); Eosinophils % (A) 2 %; HGB 12.1 gm/dL (13.0-17.5); Lymphocytes # (A) 1.7 k/uL (1.0-4.8); Lymphocytes % (A) 20 %; MCH 30.7 pg (25.0-35.0); MCV 96.2 fL (80.0-100.0); Mean Platelet Volume 7.9; Monocytes # (A) 0.4 k/uL (0-1.0); Monocytes % (A) 4 %; Neutrophils # (A) 6.2 k/uL (1.3-7.7); Neutrophils % (A) 73 %; Platelet Count 195 k/uL (150-450); RBC 3.95 m/uL (4.30-5.90); RDW 13.4 % (11.5-15.5); WBC 8.5 k/uL (3.8-10.6)
[2021-08-22 04:11] LABS: ALT 41 U/L (4-49); AST 39 U/L (17-59); African American GFR (CKD) >90 (>60 ml/min/1.73 sqM); Albumin/Globulin Ratio 1.2; Alkaline Phosphatase 52 U/L (38-126); Anion Gap 3 mmol/L; Blood Urea Nitrogen 16 mg/dL (9-20); Calcium 8.4 mg/dL (8.4-10.2); Carbon Dioxide 28 mmol/L (22-30); Chloride 110 mmol/L (98-107); Globulin 2.5 g/dL; Glucose 103 mg/dL (74-99); Non-African American GFR(CKD) >90 (>60 ml/min/1.73 sqM); Potassium 4.7 mmol/L (3.5-5.1); Sodium 141 mmol/L (137-145); Total Bilirubin 0.5 mg/dL (0.2-1.3); Total Protein 5.5 g/dL (6.3-8.2)
[2021-08-22] MEDS: ACETAMINOPHEN TAB 325 MG TAB PO SCH ×2 (05:43→11:34)
[2021-08-22] MEDS: SODIUM CHLORIDE 0.9% 1,000 ML IV SCH (05:55)
[2021-08-22] MEDS: oxyCODONE-APAP 7.5-325MG 1 EACH TAB PO PRN ×2 (07:17→12:21)
[2021-08-22 08:12] VITALS: BP 124/70; RESP 16; TEMP 97.7
[2021-08-22] MEDS: CYCLOBENZAPRINE 5 MG TAB PO PRN (08:27)
[2021-08-22] MEDS: HYDROmorphone 0.5 MG/0.5 ML SYRINGE IVP PRN (08:27)
[2021-08-22] MEDS: HEPARIN SODIUM,PORCINE/PF 5,000 UNIT/0.5 ML SYRINGE SQ SCH (09:07)
[2021-08-22] MEDS: FAMOTIDINE 20 MG TAB PO SCH (09:08)
[2021-08-22] MEDS: LEVOTHYROXINE 75 MCG TAB PO SCH (09:08)
[2021-08-22] MEDS: GABAPENTIN 300 MG CAP PO SCH (09:08)
--- NOTE | 2021-08-22 10:56 | P.DS ---
Providers Date of admission: 08/21/21 15:46 Expected date of discharge: 08/22/21 Attending physician: Jabari Martínez DO Consults: 08/20/21 15:41 Consult Physician Routine Consulting Provider: Horace Dodd Consult Reason/Comments: Medical Management Do you want consulting provider notified?: Yes Primary care physician: Horace Dodd Hospital Course: Date of admission: 08/20/2021 Date of discharge: 08/22/2021 Admission diagnosis: - L5-S1 severe spondylosis - L5-S1 stenosis with radiculopathy - Neurogenic claudication - Low back pain Discharge diagnosis: Same Attending physician: Dr. Martínez Surgical procedures: L5-S1 transforaminal interbody fusion, minimally invasive Brief history: Patient is a 65-year-old male with a history of L5-S1 severe spondylosis; L5-S1 stenosis with radiculopathy; Neurogenic claudication; low back pain. At this point patient has failed conservative treatment measures and has opted to proceed with a elective L5-S1 transforaminal interbody fusion, minimally invasive. Hospital course: Details of patient's surgery can be found in operative report. Patient tolerated the procedure well and was subsequently transported to orthopedic floor. Patient's orthopeidc and medical care was provided daily. Patient had daily laboratory tests performed for evaluation of overall blood counts. Patient had daily physical therapy to include strengthening range of motion as well as education with walker ambulation. Patient was treated with heparin for their postoperative DVT prophylaxis during their inpatient stay. Patient was noted to have a relatively uneventful postoperative course. Patient reported satisfactory pain control with oral pain medications by postoperative day 2. Patient showed satisfactory progress with physical therapy. Patient moved steadily through the program and had no difficulty meeting the goals by postoperative day 2. Given patient's otherwise satisfactory course and having met physical therapy goals, plan is to discharge patient home on postoperative day 2. Discharge condition/disposition: Patient will be discharged home in stable condition. Discharge medications: Instructions are given on resumption of patient's normal daily medications per primary care recommendation, in addition patient will be prescribed oxycodone 7.5 mg/325 mg; Flexeril 5 mg; senna; gabapentin 300 mg 3 times a day; Duricef 1g Spine Discharge and Recovery Instructions Medications: See medication list All medication refills should be obtained through your primary care doctor or your clinic spine surgeon. Please discuss prescription refills at your follow up appointment. Do not call the hospital for medication refills. Dressing: Leave your dressing in place for a total of 5 days post operatively. Then you may remove your dressing and leave open to air. Keep the area clean and if not able to keep area clean, then cover with sterile gauze and tape. Showering: You may shower 3 days after your procedure allowing soap and water to run over incision. Do not scrub. Do not soak. Blot dry. Follow up: Please confirm a follow up appointment with your surgeon 3 weeks post operatively. Please make an appointment to follow up with your PCP in 1-2 weeks after surgery for evaluation 3 phase, 3-week plan POST OP WEEKS 1-3 1. Lifting/carrying/pushing/pulling limited to less than 5 pounds. 2. Do not sit for longer than 15 minutes at one time. Get up and walk around. Prolonged sitting is NOT advised. If you lay down, see if you can tolerate laying down on you front (belly side) 3. Walk for periods of 15 minutes = 1 mile but no longer; do it multiple times times each day. 4. Ice your low back after activity. POST OP WEEKS 3-6 1. Lifting limited to less than 20 pounds. 2. Do not sit for longer than 30 minutes at a time. Frequently change positions. Use a sit-to stand workstation or take frequent breaks from sitting if you have returned to work. 3. Walk for 30 minutes each day. If possible, do these three or more times a day POST OP WEEKS 6+ At your 6-week appointment we will give you a physical therapy referral to focus on a core stabilization and strengthening program. You should also work on leg & buttock strengthening, hamstring & quadriceps stretching, and continue a low impact aerobic activity program such as swimming, walking, or riding a stationary bicycle. During the initial 6 weeks after your surgery, you are at the highest risk of re-injuring your spine. You should generally avoid BLTs (bending, lifting and twisting combination motions) and follow the above guidelines to reduce the chance of reinjury. You can anticipate post op appointments in our office at approximately 3 weeks and 6 weeks after your surgery. INCISION CARE: If your incision is not draining you do NOT need to cover it with a dressing. Keep your incision clean, dry and intact. In most cases, we apply skin glue, abby or sutures to the incision at the time of surgery. This will be like a crust or have the appearance of a scab and will fall off in time on its own. The stitches or abby need to be removed at 3 weeks post op appointment. You may begin to shower 3 days after surgery (this allows the glue to paulson well). However, please avoid scrubbing the incision site or peeling off any of the skin glue. This will ensure optimal healing of your incision. Also, during this time avoid soaking the incision area in water - this includes swimming pools, hot tubs or baths. No ointments, lotions or oils on the incision until your surgeon allows. Leave abby, sutures or glue in place. Neurological dysfunction that comes on suddenly can also be a sign of a stroke. Below some common symptoms of a stroke are listed: B - balance difficulty such as sudden onset walking or leaning to one side - NEW E - eye problem such as sudden double vision or trouble seeing on one side - NEW F - Facial weakness or numbness on one side - NEW A - Arm or leg weakness or numbness on one side - NEW S - Slurred speech or difficulty with word finding - NEW T - Time is BRAIN! Call 911 as soon as you recognize these symptoms Diet: Consume a regular diet rich in vegetables and lean protein such as chicken or fish. You should consume in a ratio of approximately 20% fats|40% carbohydrates|40%protein. Vegetables, sweet potatoes, brown rice or quinoa are examples of good carbohydrates. Chips, white bread, cookies and sweets/sugar are examples of bad carbohydrates. Limit your bad carbs, go wild with good carb s. "Life's Simple 7" Guidelines as per [place] [employer] These will help you reclaim your life after surgery and last repairer helper in your recovery, keeping in mind your restrictions. (1) Get Active. Physical activity can help people lose weight, control high blood pressure and cholesterol, feel emotionally better, and sleep better. (2) Control Cholesterol. Avoid a diet high in saturated fat, trans fat, & cholesterol. Limit whole milk & cream, ice cream, butter, egg yolks, processed meats (like sausage and hot dogs), and fatty meats. Choose healthy foods that are low in saturated fat, trans fat and cholesterol which include: Fruits and vegetables, fiber rich grain products (like whole grain pasta and brown rice), lean meat such as chicken, fish, nuts, seeds, and legumes. (3) Eat Better. Eat small portions. Shop at the grocery with a list and do not stray from it. Tips for a healthy diet include: Limit sodium intake to less than 1500mg daily, avoid prepackaged, processed, and fast foods, choose a diet rich in fruits, vegetables, and whole grain, high fiber foods, and limit saturated & cholesterol in your diet. (4) Manage Blood Pressure. If you have high blood pressure, you should have a cuff at home so that you can check your blood pressure regularly. Be sure you have a good cuff. An arm one is generally better than a wrist one. Bring the cuff to a doctor's appointment to validate that the measurements that your cuff are taking are accurate. Take your blood pressure twice daily when you are sitting down and relaxing. Record the numbers in a log and bring this log with you to your doctors' appointments. (5) Lose Weight if your BMI is above 25. A healthy BMI is between 19-25. To calculate Your BMI, you may use a Standard BMI Calculator on the NIH BMI website: <www.nhlbi.nih.gov/guidelines/obesity/BMI/bmicalc.htm>. Weigh oneself daily. If you are overweight, set a goal to lose weight. A pound a week loss if needed is a good target. (6) Reduce Blood Sugar. Limit foods and liquids with "added sugars." (Added sugars include sucrose, fructose, glucose, maltose, dextrose, high fructose corn syrup, corn syrup, concentrated fruit juice and honey). (7) Stop Smoking. If you smoke, quitting smoking is one of the best things that you can do for your health. Smoking increases your risk of heart attack, stroke, and peripheral vascular disease, which is a build-up of plaque in your arteries. Please discard all the cigarettes and lighters in your house. Have a plan for what you will do when you have the urge to smoke. Direct and second- hand smoke shortens your life as well as the lives of your family, friends and others around you. For your health and the health of those around you, please consider quitting! Proper Bending Body Mechanics: Maintain a wide stance with one foot slightly in front of the other. Keep your back straight. Bend utilizing the strength in your hips and knees. Do not bend at the waist. Maintain the lifted object at your waist-level close to your body. Avoid lifting weight that causes immediately pain or pain anywhere in the body afterwards. Smoking/Nicotine If there was ever one thing that you could do to increase your overall health, decrease your risk of cardiovascular problems by about 39% the second you make the choice, it is to STOP SMOKING. Your body's most instant gratification is the second you stop smoking. We have all heard the studies, read the articles but it is true, smoking is extremely bad for your overall health, and moreover it is detrimental to your bone health. Nicotine, IN ANY FORM, kills bone cells, prevents your body from healing fractures, and significantly prolongs healing after surgery. In spine surgery specifically, it increases your risk of not healing your bones to create a fusion and increases your risk of having a revision surgery due to this up to 60%. I know it is hard. I know it feels impossible. But there are ways. Take control of your life. We are here to help you through it. And when you are ready, ask us and we can direct you to help if you desire. Use the START Plan to Quit Smoking (please visit the HelpguBroadcast[employer].org website listed below for more information): S = Set a quit date. Choose a date within the next 2 weeks, so you have enough time to prepare without losing your motivation to quit. If you mainly smoke at work, quit on the weekend, so you have a few days to adjust to the change. T = Tell family, friends, and co-workers that you plan to quit. Let your friends and family in on your plan to quit smoking and tell them you need their support and encouragement to stop. Look for a quit nico who wants to stop smoking as well. You can help each other get through the rough times. A = Anticipate and plan for the challenges you'll face while quitting. Most people who begin smoking again do so within the first 3 months. You can help yourself make it through by preparing ahead for common challenges, such as nicotine withdrawal and cigarette cravings. R = Remove cigarettes and other tobacco products from your home, car, and work. Throw away all your cigarettes (no emergency pack!), lighters, ashtrays, and matches. Wash your clothes and freshen up anything that smells like smoke. Sh ampoo your car, clean your drapes and carpet, and steam your furniture. T = Talk to your doctor about getting help to quit. Your doctor can prescribe medication to help with withdrawal and suggest other alternatives. If you can't see a doctor, you can get many products over the counter at your local pharmacy or grocery store, including the nicotine patch, nicotine lozenges, and nicotine gum. Resources for Quitting Smoking: <https://www.[place].gov/documents/[facility]/Quit_Tobacco_Resources_for_patients_313 480_7.pdf> Supplementation: Take recommended dosages of Vitamin D and Calcium to help fortify your bones and help them to heal. See your health maintenance packet for dosages and recommended levels. DVT/VTE prophylaxis: You will be given compression stockings from the hospital. Wear these daily for the first two weeks after surgery. You may take them off at night. You may be prescribed a medication to help thin your blood. Take this as directed. If you are not prescribed this medication, early and frequent ambulation has been shown to be the best prophylaxis to deep vein thrombosis and sequelae related to this event. Assessment: 1. L5-S1 severe spondylosis 2. L5-S1 stenosis with radiculopathy 3. Neurogenic claudication 4. Low back pain Procedures: L5-S1 transforaminal interbody fusion minimally invasive Patient Condition at Discharge: Good Plan - Discharge Summary Discharge Rx Participant: No New Discharge Prescriptions: New oxyCODONE HCL/ACETAMINOPHEN [oxyCODONE HCL/ACETAMINOPHEN 7.5-325] 1 tab PO Q6H #28 tab cefaDROXiL [Duricef] 1 gm PO DAILY #5 tablet Cyclobenzaprine [Flexeril] 5 mg PO TID #40 tablet Gabapentin [Neurontin] 300 mg PO TID #42 cap Sennosides/Docusate Sodium [Senna Plus 8.6-50 mg Tablet] 1 each PO DAILY PRN #20 tablet PRN Reason: Constipation No Action Levothyroxine Sodium [Synthroid] 75 mcg PO DAILY Lisinopril [Prinivil] 10 mg PO HS Atorvastatin [Lipitor] 40 mg PO HS #90 tab Sildenafil Citrate [Viagra] 100 mg PO DIRECTED PRN PRN Reason: erectile dysfunction Famotidine 40 mg PO DAILY HYDROcodone/APAP 7.5-325MG [[place] 7.5-325] 1 tab PO Q6HR PRN PRN Reason: Pain Meloxicam [Mobic] 7.5 mg PO DAILY Aspirin [Adult Low Dose Aspirin EC] 81 mg PO DAILY Discharge Medication List Levothyroxine Sodium [Synthroid] 75 mcg PO DAILY 05/30/19 [History] Lisinopril [Prinivil] 10 mg PO HS 10/09/20 [History] Atorvastatin [Lipitor] 40 mg PO HS #90 tab 10/30/20 [Rx] Famotidine 40 mg PO DAILY 12/26/20 [History] Sildenafil Citrate [Viagra] 100 mg PO DIRECTED PRN 12/26/20 [History] HYDROcodone/APAP 7.5-325MG [[place] 7.5-325] 1 tab PO Q6HR PRN 03/21/21 [History] Meloxicam [Mobic] 7.5 mg PO DAILY 03/21/21 [History] Aspirin [Adult Low Dose Aspirin EC] 81 mg PO DAILY 08/16/21 [History] Cyclobenzaprine [Flexeril] 5 mg PO TID #40 tablet 08/22/21 [Rx] Gabapentin [Neurontin] 300 mg PO TID #42 cap 08/22/21 [Rx] Sennosides/Docusate Sodium [Senna Plus 8.6-50 mg Tablet] 1 each PO DAILY PRN #20 tablet 08/22/21 [Rx] cefaDROXiL [Duricef] 1 gm PO DAILY #5 tablet 08/22/21 [Rx] oxyCODONE HCL/ACETAMINOPHEN [oxyCODONE HCL/ACETAMINOPHEN 7.5-325] 1 tab PO Q6H #28 tab 08/22/21 [Rx] Follow up Appointment(s)/Referral(s): Horace Dodd MD [Primary Care Provider] - 08/28/21 8:00 am [facility] [NON-STAFF] - As Needed [facility] [NON-STAFF] - As Needed (walker) Jabari Martínez DO [Doctor of Osteopathic Medicine] - 09/04/21 9:50 am [facility] [NON-STAFF] - As Needed (LSO back brace) Patient Instructions/Handouts: Transforaminal Lumbar Interbody Fusion (DC) Activity/Diet/Wound Care/Special Instructions: Spine Discharge and Recovery Instructions Date of Surgery: 08/20/2021 Diagnosis: L5-S1 severe spondylosis with radiculopathy Procedure: L5-S1 minimally invasive transforaminal lumbar interbody fusion Medications: See list All medication refills should be obtained through your primary care doctor or your clinic spine surgeon. Please discuss prescription refills at your follow up appointment. Do not call the hospital for medication refills. Dressing: Leave your dressing in place for a total of 3 days post operatively. Then you may remove your dressing and leave open to air. Keep the area clean and if not able to keep area clean, then cover with sterile gauze and tape. Showering: You may shower 3 days after your procedure allowing soap and water to run over incision. Do not scrub. Do not soak. Blot dry. Follow up: Please confirm a follow up appointment with your surgeon 2 weeks post operatively. Please make an appointment to follow up with your PCP in 1-2 weeks after surgery for evaluation 3 phase, 3-week plan POST OP WEEKS 1-3 1. Lifting/carrying/pushing/pulling limited to less than 5 pounds. 2. Do not sit for longer than 15 minutes at one time. Get up and walk around. Prolonged sitting is NOT advised. If you lay down, see if you can tolerate laying down on you front (belly side) 3. Walk for periods of 15 minutes = 1 mile but no longer; do it multiple times times each day. 4.Ice your low back after activity. POST OP WEEKS 3-6 1. Lifting limited to less than 20 pounds. 2. Do not sit for longer than 30 minutes at a time. Frequently change positions. Use a sit-to stand workstation or take frequent breaks from sitting if you have returned to work. 3. Walk for 30 minutes each day. If possible, do these three or more times a day POST OP WEEKS 6+ At your 6-week appointment we will give you a physical therapy referral to focus on a core stabilization and strengthening program. You should also work on leg & buttock strengthening, hamstring & quadriceps stretching, and continue a low impact aerobic activity program such as swimming, walking, or riding a stationary bicycle. During the initial 6 weeks after your surgery, you are at the highest risk of re-injuring your spine. You should generally avoid BLTs (bending, lifting and twisting combination motions) and follow the above guidelines to reduce the chance of reinjury. You can anticipate post op appointments in our office at approximately 3 weeks and 6 weeks after your surgery. INCISION CARE: If your incision is not draining you do NOT need to cover it with a dressing. Keep your incision clean, dry and intact. In most cases, we apply skin glue, abby or sutures to the incision at the time of surgery. This will be like a crust or have the appearance of a scab and will fall off in time on its own. The stitches or abby need to be removed at 3 weeks post op appointment. You may begin to shower 3 days after surgery (this allows the glue to paulson well). However, please avoid scrubbing the incision site or peeling off any of the skin glue. This will ensure optimal healing of your incision. Also, during this time avoid soaking the incision area in water - this includes swimming pools, hot tubs or baths. No ointments, lotions or oils on the incision until your surgeon allows. Leave abby, sutures or glue in place. Neurological dysfunction that comes on suddenly can also be a sign of a stroke. Below some common symptoms of a stroke are listed: B - balance difficulty such as sudden onset walking or leaning to one side - NEW E - eye problem such as sudden double vision or trouble seeing on one side - NEW F - Facial weakness or numbness on one side - NEW A - Arm or leg weakness or numbness on one side - NEW S - Slurred speech or difficulty with word finding - NEW T - Time is BRAIN! Call 911 as soon as you recognize these symptoms Diet: Consume a regular diet rich in vegetables and lean protein such as chicken or fish. You should consume in a ratio of approximately 20% fats|40% carbohydrates|40%protein. Vegetables, sweet potatoes, brown rice or quinoa are examples of good carbohydrates. Chips, white bread, cookies and sweets/sugar are examples of bad carbohydrates. Limit your bad carbs, go wild with good carbs. "Life's Simple 7" Guidelines as per [place] [employer] These will help you reclaim your life after surgery and last repairer helper in your recovery, keeping in mind your restrictions. (1) Get Active. Physical activity can help people lose weight, control high blood pressure and cholesterol, feel emotionally better, and sleep better. (2) Control Cholesterol. Avoid a diet high in saturated fat, trans fat, & cholesterol. Limit whole milk & cream, ice cream, butter, egg yolks, processed meats (like sausage and hot dogs), and fatty meats. Choose healthy foods that are low in saturated fat, trans fat and cholesterol which include: Fruits and vegetables, fiber rich grain products (like whole grain pasta and brown rice), lean meat such as chicken, fish, nuts, seeds, and legumes. (3) Eat Better. Eat small portions. Shop at the grocery with a list and do not stray from it. Tips for a healthy diet include: Limit sodium intake to less than 1500mg daily, avoid prepackaged, processed, and fast foods, choose a diet rich in fruits, vegetables, and whole grain, high fiber foods, and limit saturated & cholesterol in your diet. (4) Manage Blood Pressure. If you have high blood pressure, you should have a cuff at home so that you can check your blood pressure regularly. Be sure you have a good cuff. An arm one is generally better than a wrist one. Bring the cuff to a doctor's appointment to validate that the measurements that your cuff are taking are accurate. Take your blood pressure twice daily when you are sitting down and relaxing. Record the numbers in a log and bring this log with you to your doctors' appointments. (5) Lose Weight if your BMI is above 25. A healthy BMI is between 19-25. To calculate Your BMI, you may use a Standard BMI Calculator on the NIH BMI website: <www.nhlbi.nih.gov/guidelines/obesity/BMI/bmicalc.htm>. Weigh oneself daily. If you are overweight, set a goal to lose weight. A pound a week loss if needed is a good target. (6) Reduce Blood Sugar. Limit foods and liquids with "added sugars." (Added sugars include sucrose, fructose, glucose, maltose, dextrose, high fructose corn syrup, corn syrup, concentrated fruit juice and honey). (7) Stop Smoking. If you smoke, quitting smoking is one of the best things that you can do for your health. Smoking increases your risk of heart attack, stroke, and peripheral vascular disease, which is a build-up of plaque in your arteries. Please discard all the cigarettes and lighters in your house. Have a plan for what you will do when you have the urge to smoke. Direct and second- hand smoke shortens your life as well as the lives of your family, friends and others around you. For your health and the health of those around you, please consider quitting! Proper Bending Body Mechanics: Maintain a wide stance with one foot slightly in front of the other. Keep your back straight. Bend utilizing the strength in your hips and knees. Do not bend at the waist. Maintain the lifted object at your waist-level close to your body. Avoid lifting weight that causes immediately pain or pain anywhere in the body afterwards. Smoking/Nicotine If there was ever one thing that you could do to increase your overall health, decrease your risk of cardiovascular problems by about 39% the second you make the choice, it is to STOP SMOKING. Your body's most instant gratification is the second you stop smoking. We have all heard the studies, read the articles b ut it is true, smoking is extremely bad for your overall health, and moreover it is detrimental to your bone health. Nicotine, IN ANY FORM, kills bone cells, prevents your body from healing f ractures, and significantly prolongs healing after surgery. In spine surgery specifically, it increases your risk of not healing your bones to create a fusion and increases your risk of having a revision surgery due to this up to 60%. I know it is hard. I know it feels impossible. But there are ways. Take control of your life. We are here to help you through it. And when you are ready, ask us and we can direct you to help if you desire. Use the START Plan to Quit Smoking (please visit the Helpguide.org website listed below for more information): S = Set a quit date. Choose a date within the next 2 weeks, so you have enough time to prepare without losing your motivation to quit. If you mainly smoke at work, quit on the weekend, so you have a few days to adjust to the change. T = Tell family, friends, and co-workers that you plan to quit. Let your friends and family in on your plan to quit smoking and tell them you need their support and encouragement to stop. Look for a quit nico who wants to stop smoking as well. You can help each other get through the rough times. A = Anticipate and plan for the challenges you'll face while quitting. Most people who begin smoking again do so within the first 3 months. You can help yourself make it through by preparing ahead for common challenges, such as nicotine withdrawal and cigarette cravings. R = Remove cigarettes and other tobacco products from your home, car, and work. Throw away all your cigarettes (no emergency pack!), lighters, ashtrays, and matches. Wash your clothes and freshen up anything that smells like smoke. Shampoo your car, clean your drapes and carpet, and steam your furniture. T = Talk to your doctor about getting help to quit. Your doctor can prescribe medication to help with withdrawal and suggest other alternatives. If you can't see a doctor, you can get many products over the counter at your local pharmacy or grocery store, including the nicotine patch, nicotine lozenges, and nicotine gum. Resources for Quitting Smoking: <https://www.[place].gov/documents/[facility]/Quit_Tobacco_Resources_for_patients_313 480_7.pdf> Supplementation: Take recommended dosages of Vitamin D and Calcium to help fortify your bones and help them to heal. See your health maintenance packet for dosages and recommended levels. DVT/VTE prophylaxis: You will be given compression stockings from the hospital. Wear these daily for the first two weeks after surgery. You may take them off at night. You may be prescribed a medication to help thin your blood. Take this as directed. If you are not prescribed this medication, early and frequent ambulation has been shown to be the best prophylaxis to deep vein thrombosis and sequelae related to this event. Discharge Disposition: HOME WITH HOME HEALTH SERVICES
--- NOTE | 2021-08-22 12:23 | P.PN ---
Subjective Progress Note Date: 08/22/21 Principal diagnosis: -L5-S1 severe spondylosis -L5-S1 stenosis with radiculopathy -Neurogenic claudication -Low back pain Patient seen at bedside this morning semirecumbent and says he is in moderate pain. He says he has gotten up with physical therapy over the past day. Patient denies any chest pain, fever, shortness breath, nausea, vomiting, change in vision, loss of bowel/bladder control, saddle anesthesia. Patient says that he has not had a bowel movement yet, however, he has been passing gas. Patient says he is ready to go home. Objective - Vital Signs Vital signs: Vital Signs Temp 97.7 F 08/22/21 08:00 Pulse 71 08/22/21 08:00 Resp 16 08/22/21 08:00 BP 124/70 08/22/21 08:00 Pulse Ox 95 08/22/21 08:00 Intake & Output 08/21/21 08/22/21 08/22/21 18:59 06:59 18:59 Output Total 250 Balance -250 Output: Urine 250 Other: Voiding Method Toilet Toilet # Voids 2 4 - Exam Patient alert and oriented 3. In no acute distress. Incision is clean, dry, intact. New Optifoam dressings were placed over incision. [place]vord are well aligned NTTP throughout thoracic and lumbar spine. Bilateral upper extremity is 5/5 strength. Bilateral lower extremities 4/5 strength Neurovascular statuspedal pulses intact, 2+ bilaterally. Cap refill under 3 seconds bilaterally in lower extremities. Special Testsnegative Bossman's bilaterally; negative clonus bilaterally. Negative Homans bilaterally - Labs CBC & Chem 7: 08/22/21 03:35 08/22/21 03:35 Labs: Abnormal Lab Results - Last 24 Hours (Table) 08/21/21 08/22/21 08/22/21 Range/Units 07:18 03:35 03:35 WBC 12.69 H (4.50-10.00) X 10*3/uL RBC 4.16 L 3.95 L (4.40-5.60) X 10*6/uL Hgb 12.3 L 12.1 L (13.0-17.0) g/dL Hct 38.7 L 38.0 L (39.6-50.0) % MCHC 31.8 L (32.0-37.0) g/dL Immature Gran # 0.08 H (0.00-0.04) X 10*3/uL Neutrophils # 9.95 H (1.80-7.70) X 10*3/uL Monocytes # 1.17 H (0.20-1.00) X 10*3/uL Eosinophils # 0.01 L (0.04-0.35) X 10*3/uL Chloride 110 H (98-107) mmol/L Glucose 103 H (74-99) mg/dL Total Protein 5.5 L (6.3-8.2) g/dL Albumin 3.0 L (3.5-5.0) g/dL Assessment and Plan Assessment: Postoperative day 2 status post L5-S1 minimally invasive TLIF 1. L5-S1 severe spondylosis 2. L5 to S1 stenosis with radiculopathy 3. Neurogenic 4. Low back pain Plan: 1. L5-S1 severe spondylosis; L5-S1 stenosis radiculopathy; neurogenic claudication patient seen at bedside this morning stable. Plan discharge home today with health services. 2. Appreciate medical management 3. Pain management - going home with oxycodone 7.5 mg/325 mg 4. DVT prophylaxis - heparin in hospital 5. GI prophylaxis - senna 6. Encourage incentive spirometer use 7. PT/OT - weightbearing as tolerated 8. Discharge planning - plan discharge home today with health services Time with Patient: Less than 30
--- NOTE | 2021-08-23 08:14 | P.CON ---
Consult Note - . Consult date: 08/22/21 Assessment/Plan:: Medical consultation: For medical management of GERD/reflux, hyperlipidemia, hypertension, hypothyroidism, and several comorbidities HPI: 65-year-old male with significant past medical history of hypertension, hyperlipidemia, GERD/reflux, osteoarthritis, hypothyroidism, history of pancreatitis, history of myocardial infarction's, history of Covid-03 November 2020, and L5 to S1 spondylosis, stenosis with radiculopathy. Patient underwent L5 to S1 transforaminal interbody fusion with Dr. Martínez. 08/20/2021 Patient is seen and examined postop day 3 of L5 to S1 transforaminal interbody fusion. Patient resting in bed, patient complaint of severe lower back discomfort, and intermittent nausea with oral pain medications. [place] 10/325 discontinued, will attempt to use Percocet 7.5/325, for possible toleration. Encourage patient to use incentive's from another 10 times per hour, and to attempt oral pain medications. Will initiate anticoagulation therapy today Physical assessment: General:Alert and cooperative HEENT:Normocephalic, nontraumatic, PERRLA, normal oral pharynx Heart: Regular rate and rhythm, normal S1, S2 and no murmur/gallop. Lungs: Even and unlabored respirations, diminished anterior and posterior Extremities: Skin warm and dry without acute lesions, coloration, temperature, skin intact, no tenderness or erythema Skin: Normal pink warm and dry, incisional site dressing intact without drainage Psychiatric: Cooperative, and appropriate Assessment: postop day 1 of L5 to S1 transforaminal interbody fusion Hypertension Hyperlipidemia GERD/reflux Osteoarthritis Hypothyroidism History of pancreatitis History of myocardial infarction's History of Covid 19 infection October 2020 Full code Plan: Continue home medications Reviewed of diagnostic labs and testing Adequate pain control Encouraged to use incentive from her 10 times per hour Encourage patient in a.m. to work with physical therapy/occupational therapy Continue medical management Further recommendations, based on patient's clinical condition Medically cleared for discharge in a.m.
--- NOTE | 2021-08-23 08:27 | P.OP ---
Date of Procedure: 08/20/21 Preoperative Diagnosis: 1. L5-S1 severe spondylosis 2. L5-S1 stenosis with radiculopathy 3. Neurogenic claudication 4. Low back pain Postoperative Diagnosis: 1. L5-S1 severe spondylosis 2. L5-S1 stenosis with radiculopathy 3. Neurogenic claudication 4. Low back pain Procedure(s) Performed: 1. L5-S1 transforaminal lumbar interbody fusion 2. L5-S1 posteriolateral instrumented fusion 3. Interpretation of intraoperative flouroscopy (64916) 4. Use of MailFrontier intraoperative 3D navigation for the placement of screws (27206) 5. Harvesting of BMA with preparation of PRP and injection with biosurg graft (0232T) Implants: Dottie Sligo screws Globus Sable cage x1 7-13 mm x 25 mm 15 deg lordosis Arthrex ezra BMP with Arthrex biosurge graft Theracell BMP bullets Local bone autograft Anesthesia: GETA Surgeon: Jabari Martínez Home Restoration Service Cleaner #1: Dino Dooley (Was present for the entire case and necessary due to the complexity of the case) Estimated Blood Loss (ml): 150 IV fluids (ml): 1,000 Urine output (ml): 500 Pathology: none sent Condition: stable Disposition: PACU Indications for Procedure: 65 yo male with long standing history of back pain and RLE pain was evaluated for this and found to have severe spondylosis with RLE radiculopathy, weakness and neurogenic claudication. He went through multiple different conservative treatments including physical therapy medications [id number] and prescription injections ablations home exercises supplementation none of which alleviated his symptoms or pain. He finally elected for lumbar decompression and fusion. The patient was seen preoperatively all preoperative protocols followed. We discussed risks and benefits of the procedure again he was comfortable with them. All questions were answered. He is ready to proceed. Description of Procedure: The patient was seen and examined in the preoperative area. All preoperative protocols were followed. Informed consent was obtained risks and benefits of the procedure were discussed at length. Risks including bleeding infection damage to the surrounding tissue and risk of reoperation were discussed with the patient. Risk of anesthesia up to and including was a discussed with the patient. These are outlined in the risk review. They were willing to accept these risks and all of the risks of surgery. The patient was given a weight- based dose of antibiotics in the form of 2 g Ancef IVPB. The patient was seen and evaluated by the anesthesia team who deemed them fit for surgery. The site was marked, the patient was willing to proceed with the procedure. The patient was transferred to the operative suite by the Department of anesthesia. They were then drifted off to sleep by the department anesthesia a nd GETA was performed. The patient tolerated this well. Romero catheter was placed by nursing staff, atraumatically. Once confirmation of lines and ventilation the patient was transferred to a prone Ney table very carefully. All bony prominences including wrists, elbows, axilla, chest, hips, and thighs, and feet were padded very well. Special attention was paid to the genitalia and these were padded accordingly. SCDs were placed on bilateral lower extremities and were connected. Arms were well padded and placed on arm boards up and out in the 90/90 position. Once in position, again we confirmed good ventilation capabilities and that lines were running appropriately. The patient's lumbar spine was then exposed. 1010s were placed outlining the incision site. Standard alcohol was used to clean the incision site and allowed to dry. C-arm was used to biomark the patient and confirm level for incision which was marked with a skin marker. Operative briefing was performed with all teams and everyone in agreement to proceed. The patient was then prepped and draped in a normal sterile fashion. Timeout was then performed and all parties were in agreement with the procedure to be performed. Once in position the spine mask was placed on the patient and was secured down with Ioband. We then performed a 3-D Ziehm spin to obtain imaging for Elizabeth navigation. Once we confirmed imaging we were able to confirm accuracy with the Jamshidi. We then proceeded with placement of the left-sided pedicle screws at L5 and S1. We used the navigated Jamshidi to enter the pedicle and placed a wire. The screw was then navigated over a wire into position. We perform this for the left-sided L5 and S1 screws. We then tested the screws and they tested above 20 mA. We then turned attention to the right-hand side where wires were placed through Jamshidi's and L5 and S1 pedicles on the right-hand side respectively the Jamshidi's were removed and the wires were left in their void. The wires were then secured to the drape. We then under fluoroscopic guidance placed the tubular retractor system at L5 and S1 docking on the facet joints of L5 and S1. This was confirmed in AP and lateral to be in good position. We then locked this into place. We then cleaned the facet joints using electrocautery. We then used high-speed bur to bur off the eye AP of L5 followed by the SAP of S1. This landed us in Kambin's triangle and allowed us to perform a pedicle to pedicle foraminal decompression on the right-hand side. We used Kerrisons to clean medially and decompressed medially. Once the decompression was complete we entered the disc space with an osteotomy. Osteotome was inserted under lateral fluoroscopy. We then performed sequential shaving of the L5-S1 disc space confirming good placement in the AP and lateral fluoroscopic images across midline. We then removed the disc material using pituitary rongeurs as well as Kerrison rongeur. We perform scraping of the e ndplates using bear claws. Once the endplates were prepared and good bleeding surface had been obtained along with complete discectomy. We then thoroughly irrigated the disc space with normal sterile saline. we placed Theracell Bullets anterior in the disc space and these were impacted into place with a tamp. We then selected a cage and placed the cage atraumatically taking care to protect the exiting nerve root and the dura as we impacted the cage into place under lateral fluoroscopy. Once the cages in position it was expanded under lateral fluoroscopy until it torqued out. We did get 3-4 mm of expansion which showed up with good foraminal height in this area. We then back filled the cage with the Arthrex biosurg and PRP mixture. This created excellent fill within the cage in the disc space. Meticulous hemostasis was performed with FloSeal and patties. The nerve was inspected and was in good condition with no trauma. We then removed the caddie supervisor for the cage and carefully removed the retractor system. We then placed right-sided screws over the previously placed wires under lateral fluoroscopy. We confirmed screw placement on AP and lateral fluoroscopy. We then placed rods subfascially through the tulip heads of L5-S1 bilaterally and placed set screws. Set screws were then final tightened into position. We then broke the tabs off of the MIS screws. We then took final images in AP and lateral and confirmed good position of hardware. The wounds were then copiously irrigated with normal sterile saline. We placed vancomycin 1 g deep in both wounds bilaterally. The fascia was then closed using an Arthrex scorpion placed over Vicryl in the fascia followed by 20 in the subcu region followed by abby in the skin bilaterally. The wound edges approximated very well the wounds were then cleaned and dressed sterilely with sterile op to foam dressings. The patient was transferred back to his hospital bed atraumatically. Patient was then awakened and extubated by the department of anesthesia having tolerated the procedure very well with no complications. They were transferred to the postoperative care unit in stable condition.
== END 2021-08-22 12:25 | disposition home health service (06) ==
LOC: OR 09:29 → 4SSUR 15:25 → OR 08-21 15:46
PROVIDERS: ADMIT Orthopaedic Surgery; ATTEND Orthopaedic Surgery
DX: M48.062 Spinal stenosis, lumbar region with neurogenic claudication (principal); M47.27 Other spondylosis with radiculopathy, lumbosacral region; M48.07 Spinal stenosis, lumbosacral region; R11.0 Nausea; E78.5 Hyperlipidemia, unspecified; I10 Essential (primary) hypertension; I25.2 Old myocardial infarction; E03.9 Hypothyroidism, unspecified; M19.90 Unspecified osteoarthritis, unspecified site; K21.9 Gastro-esophageal reflux disease without esophagitis; Z86.16 Personal history of COVID-19; Z20.822 Contact with and (suspected) exposure to COVID-19; Z87.828 Personal history of other (healed) physical injury and trauma; Z87.19 Personal history of other diseases of the digestive system; Z90.49 Acquired absence of other specified parts of digestive tract; Z79.899 Other long term (current) drug therapy; Z79.1 Long term (current) use of non-steroidal anti-inflammatories (NSAID); Z79.82 Long term (current) use of aspirin; Z79.890 Hormone replacement therapy; Z71.9 Counseling, unspecified; Z80.1 Family history of malignant neoplasm of trachea, bronchus and lung; Z83.3 Family history of diabetes mellitus; Z82.49 Family history of ischemic heart disease and other diseases of the circulatory system; Z83.2 Family history of diseases of the blood and blood-forming organs and certain disorders involving the immune mechanism
CPT/HCPCS: 22633; 20930; 20936; 97161; 97166; 86900; 86901; 80053; 80048; 83735 ×2; 85025 ×2; 86850; 87635; 72100; 71045; 72131; 36415; G0378 ×2; C1713 ×2; C1762 ×2; J2250; J3370; J1100; J2710; J0690 ×2; J2405; J2001; J3010; J1170 ×5; J3475; J0330; J2704; J1644 ×2

== ENCOUNTER → 2021-12-18 | Outpatient (CLI) | payer MEDICARE, OTHER ==
--- NOTE | 2021-12-19 06:36 | CT ---
EXAMINATION TYPE: CT cervical spine wo con DATE OF EXAM: 12/18/2021 COMPARISON: MRI cervical spine December 03, 2021 HISTORY: Cervicalgia, sx scheduled for 01/08 CT DLP: 493.70 mGycm. Automated Exposure Control for Dose Reduction was Utilized. TECHNIQUE: CT scan of the cervical spine is obtained without contrast, axial images are obtained, sa gittal and coronal reformatted images are also reviewed. FINDINGS: Cervical spine is visualized in its entirety from C1 through upper thoracic levels, redemon strates slight scoliotic curvature and coronal images. Alignment is straightened on sagittal images. Prevertebral soft tissue appears within normal limits. The C1-C2 articulation is within normal limit s on the coronal images. Vertebral body heights are maintained. Mild disc space narrowing with modera te spurring C5-C6 level. Moderate to severe disc space narrowing and spurring C6-C7 level is present. Axial images at C2-C3, C3-C4, C4-C5 levels all appear within normal limits. Axial images at C5-C6 level shows broad-based posterior disc protrusion along with uncovertebral face t spurring. There is effacement of the anterior thecal sac and moderate left along with mild right-si ded neural foraminal narrowing. Axial images at C6-C7 level show posterior and uncovertebral facet spurring effacing left anterolater al thecal sac and causing mild to moderate left-sided neural foraminal narrowing. Axial images at C7-T1 level remain within normal limits. Thyroid gland appears within normal limits. Lung apices show no pneumothorax. IMPRESSION: Straightening of cervical spine with multilevel degenerative changes greatest at C5-C6 le fabiola seen as detailed above. Findings correlate with recent MRI.
== END | disposition home or self-care (01) ==
LOC: RADCTMAIN 18:14
PROVIDERS: ATTEND Orthopaedic Surgery
DX: M47.812 Spondylosis without myelopathy or radiculopathy, cervical region (principal); M50.222 Other cervical disc displacement at C5-C6 level; M41.82 Other forms of scoliosis, cervical region; M25.78 Osteophyte, vertebrae
CPT/HCPCS: 72125

== ENCOUNTER → 2021-12-27 | Outpatient (CLI) | payer MEDICARE, OTHER | END | disposition home or self-care (01) | LOC: LABWHC1 08:57 | PROVIDERS: ATTEND Nurse Practitioner Family | DX: Z01.812 Encounter for preprocedural laboratory examination (principal) | CPT/HCPCS: 93005 ==

== ENCOUNTER 2022-01-29 06:09 | Emergency (ER) | payer MEDICARE, OTHER ==
[2022-01-29 06:22] VITALS: TEMP 98
--- NOTE | 2022-01-29 06:55 | XR ---
EXAMINATION TYPE: XR chest 2V DATE OF EXAM: 01/29/2022 COMPARISON: 08/21/2021 HISTORY: Chest pain TECHNIQUE: 2 views FINDINGS: Heart and mediastinum are normal. Lungs are clear. Diaphragm is normal. Bony thorax is inta ct. IMPRESSION: Normal chest. No change.
[2022-01-29 06:56] LABS: Basophils % (A) 0 %; Eosinophils # (A) 0.2 k/uL (0-0.7); Eosinophils % (A) 4 %; HCT 46.7 % (39.0-53.0); HGB 14.9 gm/dL (13.0-17.5); Lymphocytes # (A) 2.1 k/uL (1.0-4.8); Lymphocytes % (A) 32 %; MCH 29.3 pg (25.0-35.0); MCHC 31.9 g/dL (31.0-37.0); Mean Platelet Volume 7.4; Monocytes # (A) 0.5 k/uL (0-1.0); Monocytes % (A) 7 %; Neutrophils # (A) 3.7 k/uL (1.3-7.7); Neutrophils % (A) 55 %; Platelet Count 212 k/uL (150-450); RBC 5.08 m/uL (4.30-5.90); RDW 13.5 % (11.5-15.5); WBC 6.7 k/uL (3.8-10.6)
[2022-01-29 07:06] LABS: Partial Thromboplastin Time 25.7 sec (22.0-30.0); Prothrombin Time 10.6 sec (9.0-12.0)
[2022-01-29 07:15] LABS: ALT 32 U/L (4-49); AST 29 U/L (17-59); African American GFR (CKD) >90 (>60 ml/min/1.73 sqM); Albumin 4.4 g/dL (3.5-5.0); Alkaline Phosphatase 77 U/L (38-126); Anion Gap 10 mmol/L; Blood Urea Nitrogen 14 mg/dL (9-20); Calcium 9.2 mg/dL (8.4-10.2); Carbon Dioxide 23 mmol/L (22-30); Chloride 107 mmol/L (98-107); Glucose 101 mg/dL (74-99); Magnesium 1.7 mg/dL (1.6-2.3); Non-African American GFR(CKD) 81 (>60 ml/min/1.73 sqM); Potassium 4.6 mmol/L (3.5-5.1); Sodium 140 mmol/L (137-145); Total Bilirubin 0.5 mg/dL (0.2-1.3); Total Protein 7.5 g/dL (6.3-8.2)
[2022-01-29] MEDS ORDERED: ASPIRIN 81 MG PO STA (07:55)
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
[2022-01-29 08:07] VITALS: BP 137/89; PULSE 66; RESP 18
== END 2022-01-29 08:04 | disposition home or self-care (01) ==
LOC: EC 06:09
DX: R07.89 Other chest pain (principal); K21.9 Gastro-esophageal reflux disease without esophagitis; E78.5 Hyperlipidemia, unspecified; I10 Essential (primary) hypertension; I25.2 Old myocardial infarction; M19.90 Unspecified osteoarthritis, unspecified site; E07.9 Disorder of thyroid, unspecified; F32.A Depression, unspecified; Z79.82 Long term (current) use of aspirin; Z90.49 Acquired absence of other specified parts of digestive tract
CPT/HCPCS: 36415; 71046; 80053; 83735; 84484; 85025; 85610; 85730; 93005; 99285

== ENCOUNTER → 2022-03-03 | Outpatient (CLI) | payer MEDICARE, OTHER ==
[2022-03-03 19:30] LABS: INR 0.96 (0.90-1.11); Prothrombin Time 10.6 sec (9.9-11.9)
== END | disposition home or self-care (01) ==
LOC: LABPAT 11:32
PROVIDERS: ATTEND Orthopaedic Surgery
DX: Z01.812 Encounter for preprocedural laboratory examination (principal); M48.02 Spinal stenosis, cervical region
CPT/HCPCS: 85610

== ENCOUNTER 2022-03-04 05:50 | Inpatient (IN) | payer MEDICARE, OTHER ==
[2022-03-03 11:08] VITALS: BMI 26.6
[~2022-03-04 05:50] MED LIST changes: -DEXAMETHASONE SOD PHOSPHATE 4 MG/ML 1 ML VIAL IV ONE; -TRANEXAMIC ACID 1,000 MG in SODIUM CHLORIDE 0.9% 100 ML IVPB PRN; +TRANEXAMIC ACID IN NACL,ISO-OS 1,000 MG in SALINE 1 100ML.BAG IVPB PRN
[2022-03-04] MEDS ORDERED: ONDANSETRON 4 MG/2 ML VIAL IVP ONE ×3 (06:01→11:15)
[2022-03-04] MEDS ORDERED: DEXAMETHASONE SOD PHOSPHATE 4 MG/ML 1 ML VIAL IV ONE (06:01)
[2022-03-04] MEDS: LACTATED RINGERS 1,000 ML IV SCH (06:08)
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
[2022-03-04] MEDS ORDERED: fentaNYL (PF) 50 MCG/ML 2 ML AMP ONE (07:25)
[2022-03-04] MEDS ORDERED: MIDAZOLAM 2 MG/2 ML VIAL ONE (07:25)
[2022-03-04] MEDS ORDERED: ROCURONIUM 10 MG/ML (5 ML VIAL) IV ONE (07:25)
[2022-03-04] MEDS ORDERED: KETAMINE 10 MG/ML 20 ML VIAL ONE (07:25)
[2022-03-04] MEDS ORDERED: SUCCINYLCHOLINE CHLORIDE 100 MG/5 ML SYR IV ONE (07:25)
[2022-03-04] MEDS ORDERED: PROPOFOL 10 MG/ML 20 ML VIAL IV ONE (07:25)
[2022-03-04] MEDS ORDERED: ePHEDrine 50 MG/ML 1 ML VIAL ONE (07:25)
[2022-03-04] MEDS ORDERED: TRANEXAMIC ACID IN NACL,ISO-OS 1,000 MG/100 ML BAG ONE (07:25)
[2022-03-04] MEDS ORDERED: LIDOCAINE 1% INJ 10MG/ML (20 ML MDV) ONE (07:25)
[2022-03-04] MEDS ORDERED: LACTATED RINGERS 1,000 ML IV ONE (08:49)
[2022-03-04] MEDS ORDERED: THROMBIN (BOVINE) 5,000 UNIT VIAL MISCELLANE ONE (08:55)
[2022-03-04] MEDS ORDERED: GELATIN SPONGE,ABSORB (SMALL) 1 EACH SPONGE MISCELLANE ONE (08:56)
[2022-03-04] MEDS ORDERED: HYDROcodone/APAP 5-325MG 1 EACH TAB PO PRN (10:21)
[2022-03-04] MEDS ORDERED: HYDROmorphone 0.5 MG/0.5 ML SYRINGE IVP PRN (10:21)
[2022-03-04] MEDS ORDERED: MAGNESIUM HYDROXIDE 2,400 MG/10 ML CUP PO PRN (10:21)
[2022-03-04] MEDS ORDERED: SENNOSIDES-DOCUSATE SODIUM 1 EACH TAB PO PRN (10:21)
[2022-03-04] MEDS ORDERED: TEMAZEPAM 30 MG CAP PO PRN (10:44)
[2022-03-04] MEDS: HYDROmorphone 0.5 MG/0.5 ML SYRINGE IVP PRN ×4 (10:54→11:30)
--- NOTE | 2022-03-04 11:15 | XR ---
EXAMINATION TYPE: XR cervical spine limited DATE OF EXAM: 03/04/2022 COMPARISON: None HISTORY: Anterior cervical fusion TECHNIQUE: Fluoroscopy for localization FINDINGS: Metallic device is directed to the C5-C6 disc level patient is intubated. Anterior cervical fusion is performed C5-C7. Fluoroscopy time: 23.9 seconds images: 6 IMPRESSION: 1. Fluoroscopy for procedure documentation
--- NOTE | 2022-03-04 11:16 | FL ---
Fluoroscopy INDICATION: Pain, anterior cervical fusion FINDINGS: Fluoroscopy time: 44 seconds. Images obtained: 0. IMPRESSIONS: 1. Documentation of fluoroscopy.
[2022-03-04] MEDS ORDERED: fentaNYL (PF) 50 MCG/ML 2 ML AMP IVP ONE (11:47)
[2022-03-04] MEDS: fentaNYL (PF) 50 MCG/ML 2 ML AMP IVP ONE ×2 (14:54→15:09)
[2022-03-04] MEDS ORDERED: HYDROmorphone 0.5 MG/0.5 ML SYRINGE IVP ONE (16:04)
--- NOTE | 2022-03-04 16:04 | P.PN ---
Progress Note - Text Progress Note Date: 03/04/22 Postop: . Patient seen and examined they are doing well. Their pain is under control at this time. They are moving all 4 extremities without any issues. Vital signs are stable.. They are currently recovering and will be transferred to the floor once deemed stable by the PACU team and anesthesiologist. No Other issues at this time they deny fever chills shortness of breath or chest pain. C collar in place, well fitting Medical management pending Continue with intravenous fluids, pain medication, muscle relaxers, home medication Soft diet to start to advance as tolerated We will evaluate the patient in the morning.
[2022-03-04] MEDS: SODIUM CHLORIDE 0.9% 1,000 ML IV SCH ×2 (17:40→21:09)
[2022-03-04] MEDS: GABAPENTIN 300 MG CAP PO SCH ×2 (17:40→21:09)
[2022-03-04] MEDS: HYDROmorphone 1 MG/ML 1 ML SYRINGE IVP PRN (17:40)
[2022-03-04] MEDS: HYDROcodone/APAP 10-325MG 1 EACH TAB PO PRN (21:09)
[2022-03-04] MEDS: ATORVASTATIN 40 MG TAB PO SCH (21:09)
[2022-03-05] MEDS: HYDROmorphone 1 MG/ML 1 ML SYRINGE IVP PRN ×2 (00:32→08:36)
[2022-03-05] MEDS: CYCLOBENZAPRINE 5 MG TAB PO PRN ×2 (00:32→11:15)
[2022-03-05] MEDS: LACTATED RINGERS 1,000 ML IV SCH (02:14)
[2022-03-05] MEDS: LEVOTHYROXINE 75 MCG TAB PO SCH (05:56)
[2022-03-05] MEDS: HYDROcodone/APAP 10-325MG 1 EACH TAB PO PRN (05:56)
[2022-03-05] MEDS: GABAPENTIN 300 MG CAP PO SCH ×3 (08:35→20:47)
[2022-03-05 09:10] LABS: Basophils # (A) 0.02 X 10*3/uL (0.00-0.10); Basophils % (A) 0.2 %; Eosinophils # (A) 0.09 X 10*3/uL (0.04-0.35); Eosinophils % (A) 0.9 %; HCT 44.2 % (39.6-50.0); HGB 13.9 g/dL (13.0-17.0); Immature Grans, Automated 0.4 %; Lymphocytes # (A) 1.87 X 10*3/uL (0.90-5.00); Lymphocytes % (A) 18.6 %; MCH 28.4 pg (27.0-32.0); MCHC 31.4 g/dL (32.0-37.0); MCV 90.2 fL (80.0-97.0); Mean Platelet Volume 10.7 fL (9.5-12.2); Monocytes # (A) 1.03 X 10*3/uL (0.20-1.00); Monocytes % (A) 10.2 %; NRBC Per 100 WBC 0 /100 WBCS (0.0-0.0); Neutrophils # (A) 7.01 X 10*3/uL (1.80-7.70); Neutrophils % (A) 69.7 %; Platelet Count 229 X 10*3/uL (140-440); RDW 14.5 % (11.5-14.5); WBC 10.06 X 10*3/uL (4.50-10.00)
[2022-03-05 09:35] LABS: African American GFR (CKD) 96.7 (60.0-200.0); Anion Gap 9.3 mmol/L (10.00-18.00); BUN/Creat Ratio 10.67 Ratio (12.00-20.00); Blood Urea Nitrogen 10.1 mg/dL (9.0-27.0); Calcium 8.7 mg/dL (8.7-10.3); Carbon Dioxide 27.3 mmol/L (20.0-27.5); Non-African American GFR(CKD) 83.4 (60.0-200.0); Potassium 4.9 mmol/L (3.5-5.5)
--- NOTE | 2022-03-05 09:49 | CT ---
EXAMINATION TYPE: CT cervical spine wo con DATE OF EXAM: 03/05/2022 COMPARISON: CT dated 12/18/2021 HISTORY: S/P C5-C7 fusion CT DLP: 417.9 mGycm Automated exposure control for dose reduction was used. TECHNIQUE: CT scan of the cervical spine is obtained without contrast, axial images are obtained, sa gittal and coronal reformatted images are also reviewed. FINDINGS: Interval anterior fixation of C5, C6 and C7 vertebral bodies using a plate and 6 screws. Disc spacers are also seen at C5-6 and C6-7 levels. Acute postoperative changes with operative bed soft tissue sw elling, gas and right-sided surgical drain. No evidence of prosthesis break or displacement. No significant anterolisthesis or retrolisthesis. No definite vertebral body collapse or acute displa sara fracture. Mild left C3-4, moderate bilateral C5-6 and moderate to severe left C6-7 neuroforaminal stenosis. Suspected spinal canal stenosis is seen at C5-6 and C6-7 levels more on the left side. Retropharyngea l and prevertebral soft tissue swelling and fluid is noted, likely related to acute postoperative luiz nges. IMPRESSION: Acute postoperative changes as detailed above.
[2022-03-05] MEDS ORDERED: HYDROcodone/APAP 10-325MG 1 EACH TAB PO PRN (10:49)
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
[2022-03-05] MEDS: KETOROLAC 15 MG/ML 1 ML VIAL IVP SCH ×3 (11:15→23:17)
[2022-03-05] MEDS: SODIUM CHLORIDE 0.9% 1,000 ML IV SCH (11:21)
[2022-03-05] MEDS: PANTOPRAZOLE 40 MG/10 ML VIAL IVP SCH (11:21)
--- NOTE | 2022-03-05 13:02 | P.OP ---
Date of Procedure: 03/04/22 Preoperative Diagnosis: 1. Cervical spondylosis C5 to C7 2. Cervical disc herniation with stenosis C5-6 C6-7 moderate to severe stenosis 3. Bilateral upper extremity radiculopathy Postoperative Diagnosis: 1. Cervical spondylosis C5 to C7 2. Cervical disc herniation with stenosis C5-6 C6-7 moderate to severe stenosis 3. Bilateral upper extremity radiculopathy Procedure(s) Performed: 1. Right Sided Tee-Ocampo Approach anterior neck 2. C5-6 Anterior interbody arthrodesis (39055) 3. C6-7 anterior interbody arthrodesis (65382) 4. Insertion of biomechanical device C5-6 and C6-7 ([id number]) 5. Application of non integrated two level anterior plate C5-7 (85450) 6. Autograft and allograft for spine surgery (49171) 7. Use of intraoperative microscope 8. Use of intraoperative neuromonitoring 9. Interpretation of intraoperative flouroscopy <1 hr (63938) Implants: [place] 8 mm 8 deg lordotic anterior cervical cage x2 [place] two level anterior plating system Local autograft Allograft Bio4 Anesthesia: GETA Surgeon: Jabari Martínez Director Internal Control #1: Marylin Slaughter (Was present and assisted with positioning, opening, arthrodesis, hardware placement, closure and dressing) Estimated Blood Loss (ml): 20 IV fluids (ml): 1,500 Urine output (ml): 200 Pathology: none sent Condition: stable Disposition: PACU Indications for Procedure: Kevin Judd is presenting for evaluation of cervical pain with bilateral upper extremity radiculopathy. It was my pleasure to have seen and examined Kevin Judd. In our visit today we have had a chance to go over subjective complaints, physical examination findings and treatments including the natural course history without intervention and various interventional options. The patients imaging demonstrates MRI: this is reviewed in office with the patient and demonstrates2 levels of moderate to severe spondylosis at C56 and C6 7. There is retrolisthesis of C5 on C6 with large disc herniation causing severe central stenosis and bilateral foraminal stenosis. There is spondylosis C6-C7 with disc bulging is causing moderate central stenosis and foraminal stenosis bilaterally. There is disc height loss and desiccation at both levels. There is no overt myelomalacia noted however there is severe stenosis. No fracture or other dislocation is noted. Occipital cervical C1 2 joints appear stable at this time. On physical exam, Kevin Judd demonstrates bilateral upper extremity weakness with right upper extremity hyperreflexia. There is also a C5- C6 dermatomal deficit present on the right upper extremity. I have explained to the patient that as their condition progresses it will cause further neurological deficits and eventual paralysis. Based on the patients imaging, physical exam, and the rapid progression and disabling nature of their symptoms, at this time I recommend surgery in the form or a: C5-C7 ACDF. I discussed the risk and benefits of this procedure at length with Kevin Judd. The patient agreed to considered pursuing the procedure abovementioned. Prior to surgery, she should follow up with her PCP (Cardio, ID, IM etc) for clearance. Questions were invited and answered, and the patient wishes to proceed as outlined below. Currently, I am recommendin.C5-C7 ACDF 2.Follow up with PCP for surgical clearance 3.Review of surgical risks and benefits as well as an educational packet on the proposed surgical procedure. Description of Procedure: The patient was brought to the holding area on the day of surgery. In the holding area, the patient was seen and examined by myself. The surgical site was marked with my initials using an indelible pen. The patient was taken to the operating room today and after being positively identified, received general endotracheal anesthesia by our anesthesia colleagues and bilateral sequential compression devices were placed on the lower extremities by the nursing staff. SSEP, EMG and motor-evoked potential baselines were obtained after the neuromonitoring leads were applied by the neurophysiology plasma center technician. Baseline MEPs and SSEPs were run showing good symmetric response in all extremities. SSEPs were also symmetric and stable. The patient was positioned on an interscapular pad on a Treos table with cervical lordosis roll. Arms were circumferentially padded. All pressure points were well padded as well. Shoulder pull-down with 3-inch tape was carried out. Preoperatively within 1 hour of incision, the patient received IV antibiotic prophylaxis and steroids. C-arm was used for bio-mapping in 2 planes. Sterile prepping and draping was completed and a safety timeout was carried out. The timeout was performed in order to confirm patient's identity, procedure, laterality, site, patient allergies, and preoperative administration of antibiotics and DVT prophylaxis. I then performed, as discussed with the patient, a RICHT sided anterior exposure along the anterior margin of the sternocleidomastoid muscle. This was about a 4 fingerbreadth-long incision. We identified the platysma and split it longitudinally. The superficial layer of the middle cervical fascia was identified and carefully dissected and then the deep layer of it. The omohyoid was mobilized and could be retracted. The deep cervical fascia was then released over the palpable osteophytes at C5 to C7 and reflected left and right with laguerre elevators off the uncovertebral joints. Nice exposure left and right with release of the anterior soft tissues of the longus colli was achieved. A radiopaque marker was placed to confirm the appropriate surgical level. Under C-arm guidance, we verified levels. At this point, a self-retaining cervical retractor was placed, the endotracheal cuff pressure was lowered to reduce compression on the RLN and the intraoperative microscope was brought in for anterior decompression. I then removed the anterior osteophytes at C5-C6. I also used a smaller ENT rongeur to open the disc spaces, including the uncovertebral joints left and right. Bone from the anterior decompression was saved for use as autograft bone fusion material. Under lateral C-arm guidance, I then placed 12 mm traction pins of the [place] type into C5 and C6. Gentle distraction of the vertebrae was carried out until we had restored lordosis. I then spread out the C5 and C6 disc after releasing the disc further with straight small curets. With the soft tissue retractors having been replaced and without any undue tension, I performed an anterior discectomy completion to the posterior inferior vertebral body wall using a combination of the high-speed bur, Kerrison punches, spinal curettes, and the microscopic instruments. The discectomy was performed to the level of the posterior longitudinal ligament. Bilateral foraminotomies and resection of the PLL was performed with the Kerrison punches to decompress the spinal cord and the exiting nerve roots. I also performed [place] dissection of the C5 endplate and the posterior superior endplate of C6, as well as the medial edge of the superior uncovertebral joints left and right of C6. I released the posterior longitudinal ligament and had full [place] dural sac as a reference for dorsal decompression of left through right. I then turned my attention toward the application of the intervertebral biomechanical device at C5 6. The trial cages were inserted to identify the best fit. The appropriate-sized intervertebral cage was then selected, in this case a 8 lordotic interbody implant, packed with autograft and allograft and then inserted into the interspace using gentle impaction. A set of motor evoked potentials was run showing no change from baseline. Excess bone graft was then gently impacted into the anterior exposed gutters at C5 6 to complete the anterior interbody arthrodesis at this level. Next, I performed the anterior discectomy at and C6 7. Under lateral C-arm guidance, I removed self-retaining [place] distractor followed by the [place] pin from the C5 body, sealed the pin site with bone wax and then placed 12 mm mm traction pin of the [place] type into the C7 body. Gentle distraction of the vertebrae was carried out until we had restored lordosis. Then using a combination of the high-speed bur, Kerrison punches, spinal curettes, and the microscopic instruments, an anterior discectomy was performed to the level of the posterior longitudinal ligament. Bilateral foraminotomies and resection of the PLL was performed with the Kerrison punches to decompress the spinal cord and the exiting nerve roots.] I then turned my attention toward the application of the intervertebral biomechanical device at C6-C7. The trial cages were inserted to identify the best fit. The appropriate-sized intervertebral cage was then selected, in this case a 8 mm lordotic interbody implant, packed with autograft and allograft and then inserted into the interspace using gentle impaction. A set of motor evoked potentials was run showing no change from baseline. Excess bone graft was then gently impacted into the anterior exposed gutters at C6-C7 to complete the anterior interbody arthrodesis at this level. Nice purchase was obtained. All traction was removed, including pin traction of [place] and external traction weight. I then performed the application of the non-integrated anterior spinal instrumentation from C5 to C7. A non-integrated anterior cervical plate was selected for length and then contoured as needed for lordosis with the [place] be nder. I secured it with temporary holding screws and then checked with AP and lateral imaging for adequate alignment and implant placement. With that having been accomplished, I drilled first the patient's left-hand side C7. With this having been accomplished, all screw holes were filled with 16 mm 4.0 screws, depending upon intraoperative drill finding and probing. A very nice stable fixation was obtained. Biplanar imaging revealed satisfactory alignment and implant placement. There were no electrodiagnostic changes. The wound was then copiously irrigated and final hemostasis was achieved using FloSeal hemostatic agent and the bipolar device. At this point, the anterior cervical retractor was removed and the wound was found to have good hemostasis present. I then performed final thorough irrigation and review of the surgical site and found no internal organ injuries. I then closed the incision in layers with a deep drain. I used 3-0 Vicryl for platysma, 3-0 Vicryl for subcutaneous, and 4-0 Monocryl for skin. The skin was then dressed with Exofin and a sterile bandage. Suction canister was applied to the drain. The drain was sewn in to avoid accidental translocation. Drain dressing was applied. A Soft cervical collar was then applied. A final set of motor evoked potentials were run and no change from baseline was noted. At the conclusion of the operation, all sponge, needle, and instrument counts were deemed to be correct. The patient was awakened from their anesthetic, extubated in the operating room, transferred onto their hospital bed, and transferred to the post-anesthesia care unit in a stable condition, extubated condition. COMPLICATIONS: No known complications. No blood products given. No dural tear, no CSF leak. No changes in intraoperative neuromonitoring. DRAINS: One small round pedro drain COUNTS: Needle, sponge and cottonoid count correct. UOP: See anesthesia record FLUIDS: See anesthesia record SPECIMENS SUBMITTED: None. POSTOPERATIVE PLAN: Mobilization with collar to be worn for 3 months. Head of bed should be above 30 degrees. Swallowing trial with ice chips first and then advance from there.
--- NOTE | 2022-03-05 13:11 | P.PN ---
Subjective Progress Note Date: 03/05/22 Principal diagnosis: C5 to 7 stenosis with spondylosis Patient seen and examined doing fairly well as morning sitting up eating yogurt. He states pain in his neck although he is doing okay states pain with swallowing. Drain is in place. He states he has not been up yet although it is early. He denies fevers chills shortness of breath or chest pain states his arms feel okay and denies any new symptoms. Objective - Vital Signs Vital signs: Vital Signs Temp 98 F 03/05/22 06:40 Pulse 77 03/05/22 06:40 Resp 16 03/05/22 06:40 BP 168/78 03/05/22 06:40 Pulse Ox 96 03/05/22 06:40 Intake & Output 03/04/22 03/05/22 03/05/22 18:59 06:59 18:59 Intake Total 1250 310 Output Total 620 1180 Balance 630 -870 Intake: IV 1250 Oral 310 Output: Drainage 30 Neck 30 Urine 600 1150 Estimated Blood Loss 20 Other: Voiding Method Urinal - Exam Patient is alert and oriented 3 appears well-nourished well-hydrated is in no acute distress. They do not appear septic. On exam the patient has no tenderness to palpation of her thoracic or lumbar spine. There is no edema or ballottement sign. Lower extremities with [5]/5 strength in all major muscle groups Upper extremities show [5]/5 strength in all major muscle groups. No focal deficits [2]/4DTR all UE and LE b/l Patient shows a negative Homans, Redd's, negative Babinski's negative clonus bilaterally. negative straight leg raise bilaterally. No tensioning signs. Cranial nerves II through XII are grossly intact. There is FROM that is painless of the b/l UE and LE in all major joints [w/o pain]. They are intact to light touch sensation in L2 to S1 nerve distribution. Patient has palpable dorsalis pedis was posterior tibial pulses. Compartments are soft and compressible. Anterior incision clean dry and intact drain in place 5 mL out serosanguineous. - Labs CBC & Chem 7: 03/05/22 05:16 03/05/22 05:16 Labs: Abnormal Lab Results - Last 24 Hours (Table) 03/05/22 03/05/22 Range/Units 05:16 05:16 WBC 10.06 H (4.50-10.00) X 10*3/uL MCHC 31.4 L (32.0-37.0) g/dL Monocytes # 1.03 H (0.20-1.00) X 10*3/uL Anion Gap 9.30 L (10.00-18.00) mmol/L BUN/Creatinine Ratio 10.67 L (12.00-20.00) Ratio Assessment and Plan Assessment: 66-year-old male postoperative day 1 C5 to 7 ACDF 1. Cervical spondylosis C5 to C7 2. Cervical disc herniation with stenosis C5-6 C6-7 moderate to severe stenosis 3. Bilateral upper extremity radiculopathy Plan: -Appreciate regulatory affairs consultant and team management. -Activity: Ambulate QID, OOB all meals, up and about, limit lifting bending twisting to less than 5 lbs. Use walker or cane if needed for stability. -Daily PT/OT, increase ambulation strength and balance. -[Brace when up and about, not needed in bed or chair] -Pain control: [Adequate at this time] -Meds: [reviewed] -GI ppx: senna, Miralax -DVT PPX: [OK to restart Heparin tonight] -Hygiene: Shower today. Maintain dressing clean and dry. Meticulous cleaning after BMs away from incision site -Drains: DC drain today -Encourage IS 10x/hr -Dispo: Home today versus tomorrow pending pain management and patient activity
--- NOTE | 2022-03-05 14:00 | P.PN ---
Subjective Progress Note Date: 03/05/22 Principal diagnosis: C5-C7 spondylosis with stenosis Patient seen and examined today. Currently resting recumbent in bed with cervical collar in place. Patient states that his pain has not been controlled well today, medications have been adjusted. He is tolerating a soft diet with slight difficulty of swallowing. Patient had approximately 15 mL's of output in his INDIRA drain, the drain has been removed at this time. Surgical dressing has been changed. Patient tolerated activity well. Patient states he has been up to the restroom and states he has been progressing with physical therapy. Discussed with patient if pain is managed tomorrow that he could possibly be dis charged if comfortable. Patient verbalizes understanding and agrees. Objective - Vital Signs Vital signs: Vital Signs Temp 98 F 03/05/22 06:40 Pulse 77 03/05/22 06:40 Resp 16 03/05/22 06:40 BP 168/78 03/05/22 06:40 Pulse Ox 96 03/05/22 06:40 Intake & Output 03/04/22 03/05/22 03/05/22 18:59 06:59 18:59 Intake Total 1250 310 Output Total 620 1180 Balance 630 -870 Intake: IV 1250 Oral 310 Output: Drainage 30 Neck 30 Urine 600 1150 Estimated Blood Loss 20 Other: Voiding Method Urinal - Exam Physical Examination General: The patient is awake and alert, in no acute distress Skin: Skin is warm and dry with no obvious rashes or lesions. Hairy patches ab sent, no dorsal skin dimples, no cafe au lait spots. Surgical incision to anterior cervical region, INDIRA drain removed, dressing changed at this time. Eye: Pupils are equal, round and reactive to light, extra-ocular movements are intact; there is normal conjunctiva bilaterally. Neck: The neck is supple, there is tenderness and ROM restricted due to surgical procedure, soft cervical collar in place. Cardiovascular: There is a regular rate and rhythm. No murmur, rub or gallop is appreciated. Respiratory: Lungs are clear to auscultation, respirations are non-labored, breath sounds are equal. Gastrointestinal: Soft, non-distended, non-tender abdomen . Back: There is no tenderness to palpation in the midline, paralumbar, parathoracic or buttocks region. There is no obvious deformity . Musculoskeletal: ROM limited secondary to pain and stiffness from surgical procedure. Shoulder abduction 4/5, elbow flexors 4/5, wrist dorsiflexors 4/5. finger abductor 4/5, human resources technician 4/5, hip flexor 5/5, knee flexor 5/5, ankle dorsiflexor 5/5, ankle plantarflexion 5/5 and extensor hallucis 5/5. Neurological: CN 2-12 intact. There are no obvious motor or sensory deficits. Movement and coordination equal and intact. Sensory exam to light touch intact C5-T1 and intact from L2-S1. Reflexes 2/4 in bilateral upper and lower extremities. Negative Hoffmans, babinski, and clonus signs. Psychiatric: Cooperative, appropriate mood & affect, normal judgment. - Labs CBC & Chem 7: 03/05/22 05:16 03/05/22 05:16 Labs: Abnormal Lab Results - Last 24 Hours (Table) 03/05/22 03/05/22 Range/Units 05:16 05:16 WBC 10.06 H (4.50-10.00) X 10*3/uL MCHC 31.4 L (32.0-37.0) g/dL Monocytes # 1.03 H (0.20-1.00) X 10*3/uL Anion Gap 9.30 L (10.00-18.00) mmol/L BUN/Creatinine Ratio 10.67 L (12.00-20.00) Ratio Assessment and Plan Assessment: Post Op Day 1: C5 to C7 ACDF 1. Cervical spondylosis C5 to C7 2. Cervical disc herniation with stenosis C5-6 C6-7 moderate to severe stenosis 3. Bilateral upper extremity radiculopathy Plan: Plan: -Appreciate insolvency consultant and team management. -Activity: Ambulate QID, OOB all meals, up and about, limit lifting bending twisting to less than 5 lbs. Use walker or cane if needed for stability. -Daily PT/OT, increase ambulation strength and balance. -Cervical collar when up and about -Pain control: Medications adjusted. -Meds: reviewed -GI ppx: senna, Miralax -DVT PPX: heparin -Hygiene: Shower today. Maintain dressing clean and dry. -Drains: Removed -Encourage IS 10x/hr -Dispo: Anticipate discharge home tomorrow with homecare *I reviewed and discussed this case with my attending Dr. Martínez, whom has reviewed this chart and films and is in agreement with assessment and plan of care as outlined above. I have personally seen and examined the patient, performed the documentation and the assessment and plan as written. Number of minutes spent on the visit: 20m. Time with Patient: Less than 30
[2022-03-05] MEDS: oxyCODONE-APAP 5-325MG 1 EACH TAB PO PRN ×2 (15:35→20:49)
[2022-03-05] MEDS: ATORVASTATIN 40 MG TAB PO SCH (20:47)
[2022-03-06] MEDS: oxyCODONE-APAP 5-325MG 1 EACH TAB PO PRN ×3 (01:56→11:22)
[2022-03-06 02:14] VITALS: RESP 19
[2022-03-06] MEDS: SODIUM CHLORIDE 0.9% 1,000 ML IV SCH (03:45)
[2022-03-06] MEDS: LEVOTHYROXINE 75 MCG TAB PO SCH (05:35)
[2022-03-06] MEDS: KETOROLAC 15 MG/ML 1 ML VIAL IVP SCH ×2 (05:35→11:23)
[2022-03-06] MEDS: CYCLOBENZAPRINE 5 MG TAB PO PRN (05:35)
[2022-03-06] MEDS: GABAPENTIN 300 MG CAP PO SCH (07:24)
[2022-03-06] MEDS: PANTOPRAZOLE 40 MG/10 ML VIAL IVP SCH ×2 (07:25→10:13)
[2022-03-06 07:40] VITALS: BP 169/80; PULSE 71; TEMP 98.4
--- NOTE | 2022-03-06 08:04 | P.PN ---
Subjective Progress Note Date: 03/06/22 Principal diagnosis: C5-C7 spondylosis with stenosis Patient seen and examined at bedside this morning. Patient states he is doing much better than yesterday, pain is better controlled. Mr. Judd states that his pain in his shoulders and bilateral hands have improved since surgery. Surgical dressing is clean dry and intact. Cervical collar is in place. He states he has been getting up to the restroom and progressing well with therapy. Patient states he has slight discomfort with swallowing but has improved overall. He states that he is anticipating discharge today and denies any needs at this time. Objective - Vital Signs Vital signs: Vital Signs Temp 98.4 F 03/06/22 07:39 Pulse 71 03/06/22 07:39 Resp 19 03/06/22 07:39 BP 169/80 03/06/22 07:39 Pulse Ox 97 03/06/22 07:39 Intake & Output 03/05/22 03/06/22 03/06/22 18:59 06:59 18:59 Output Total 510 Balance -510 Output: Urine 510 Other: # Voids 1 - Exam Physical Examination General: The patient is awake and alert, in no acute distress Skin: Skin is warm and dry with no obvious rashes or lesions. Hairy patches absent, no dorsal skin dimples, no cafe au lait spots. Surgical incision to anterior cervical region, CDI. Eye: Pupils are equal, round and reactive to light, extra-ocular movements are intact; there is normal conjunctiva bilaterally. Neck: The neck is supple, there is tenderness and ROM restricted due to surgical procedure, soft cervical collar in place. Cardiovascular: There is a regular rate and rhythm. No murmur, rub or gallop is appreciated. Respiratory: Lungs are clear to auscultation, respirations are non-labored, breath sounds are equal. Gastrointestinal: Soft, non-distended, non-tender abdomen . Back: There is no tenderness to palpation in the midline, paralumbar, parathoracic or buttocks region. There is no obvious deformity . Musculoskeletal: ROM limited secondary to pain and stiffness from surgical procedure. Shoulder abduction 4/5, elbow flexors 4/5, wrist dorsiflexors 4/5. finger abductor 4/5, developer programmer 4/5, hip flexor 5/5, knee flexor 5/5, ankle dorsi flexor 5/5, ankle plantarflexion 5/5 and extensor hallucis 5/5. Neurological: CN 2-12 intact. There are no obvious motor or sensory deficits. Movement and coordination equal and intact. Sensory exam to light touch intact C5-T1 and intact from L2-S1. Reflexes 2/4 in bilateral upper and lower extre mities. Negative Hoffmans, babinski, and clonus signs. Psychiatric: Cooperative, appropriate mood & affect, normal judgment. - Labs CBC & Chem 7: 03/05/22 05:16 03/05/22 05:16 Labs: Abnormal Lab Results - Last 24 Hours (Table) 03/05/22 03/05/22 Range/Units 05:16 05:16 WBC 10.06 H (4.50-10.00) X 10*3/uL MCHC 31.4 L (32.0-37.0) g/dL Monocytes # 1.03 H (0.20-1.00) X 10*3/uL Anion Gap 9.30 L (10.00-18.00) mmol/L BUN/Creatinine Ratio 10.67 L (12.00-20.00) Ratio Assessment and Plan Assessment: Post Op Day 2: C5 to C7 ACDF 1. Cervical spondylosis C5 to C7 2. Cervical disc herniation with stenosis C5-6 C6-7 moderate to severe stenosis 3. Bilateral upper extremity radiculopathy Plan: Plan: -Appreciate cancer program consultant and team management. -Activity: Ambulate QID, OOB all meals, up and about, limit lifting bending twisting to less than 5 lbs. Use walker or cane if needed for stability. -Daily PT/OT, increase ambulation strength and balance. -Cervical collar when up and about -Pain control: Medications adjusted. -Meds: reviewed -GI ppx: senna, Miralax -DVT PPX: heparin -Hygiene: Shower today. Maintain dressing clean and dry. -Encourage IS 10x/hr -Dispo: discharge home today with homecare. *I reviewed and discussed this case with my attending Dr. Martínez, whom has reviewed this chart and films and is in agreement with assessment and plan of care as outlined above. I have personally seen and examined the patient, performed the documentation and the assessment and plan as written. Number of minutes spent on the visit: 20m. Time with Patient: Less than 30
--- NOTE | 2022-03-06 08:18 | P.DS ---
Providers Date of admission: 03/04/22 05:50 Expected date of discharge: 03/06/22 Attending physician: Jabari Martínez DO Consults: 03/04/22 10:26 Consult Physician Routine Consulting Provider: Horace Dodd Consult Reason/Comments: Medical Management Do you want consulting provider notified?: Yes Primary care physician: Horace Dodd Hospital Course: Hospital Course: The patient was evaluated preoperatively and found to have the diagnosis of cervical stenosis. They underwent appropriate preoperative care and were willing to undergo the intended procedure. They underwent a successful C5 to 7 ACDF, were recovered appropriately and sent to the floor. While on the floor they worked with physical therapy, occupational therapy and nursing to enhance their recovery experience. Their pain was well controlled through their stay and they were started on appropriate medications, DVT ppx modalities, activity and dietary needs. Daily labs were monitored closely, and transfusions were only used when necessary. Medicine as well as other consulting services have made their input and have helped with our team approach and multidisciplinary care. PT milestones have been met and passed and they have made the recommendation of home with home care for this patient and treating providers agree with this care path. The patient will be discharged home with appropriate medications, instructions and follow-up information and in stable condition. Patient Condition at Discharge: Good Plan - Discharge Summary Discharge Rx Participant: Yes New Discharge Prescriptions: New cefaDROXiL [Duricef] 500 mg PO Q12HR 5 Days #10 cap Cyclobenzaprine [Flexeril] 5 mg PO TID #90 tablet Gabapentin 300 mg PO TID #90 cap Polyethylene Glycol 3350 [Miralax] 17 gm PO DAILY PRN #527 gm PRN Reason: Constipation oxyCODONE HCL/ACETAMINOPHEN [Percocet 7.5-325 mg] 1 tab PO Q6HR PRN #56 tab PRN Reason: Pain Sennosides/Docusate Sodium [Senna Plus 8.6-50 mg Tablet] 1 each PO DAILY PRN #20 tablet PRN Reason: Constipation No Action Levothyroxine Sodium [Synthroid] 75 mcg PO QAM Atorvastatin [Lipitor] 40 mg PO HS #90 tab Famotidine 40 mg PO AC-BRKFST Cyclobenzaprine [Flexeril] 5 mg PO TID PRN PRN Reason: Muscle Spasm Acetaminophen [Tylenol] 500 mg PO Q4-6H PRN PRN Reason: Pain Meloxicam [Mobic] 7.5 mg PO DAILY Aspirin [Adult Low Dose Aspirin EC] 81 mg PO DAILY oxyCODONE HCL/ACETAMINOPHEN [oxyCODONE HCL/ACETAMINOPHEN 7.5-325] 1 tab PO Q6H PRN PRN Reason: Pain Temazepam 30 mg PO HS PRN PRN Reason: Insomnia Discharge Medication List Levothyroxine Sodium [Synthroid] 75 mcg PO QAM 05/30/19 [History] Atorvastatin [Lipitor] 40 mg PO HS #90 tab 10/30/20 [Rx] Famotidine 40 mg PO AC-BRKFST 12/26/20 [History] Meloxicam [Mobic] 7.5 mg PO DAILY 03/21/21 [History] Aspirin [Adult Low Dose Aspirin EC] 81 mg PO DAILY 08/16/21 [History] Cyclobenzaprine [Flexeril] 5 mg PO TID PRN 03/03/22 [History] Temazepam 30 mg PO HS PRN 03/03/22 [History] oxyCODONE HCL/ACETAMINOPHEN [oxyCODONE HCL/ACETAMINOPHEN 7.5-325] 1 tab PO Q6H PRN 03/03/22 [History] Acetaminophen [Tylenol] 500 mg PO Q4-6H PRN 03/04/22 [History] Cyclobenzaprine [Flexeril] 5 mg PO TID #90 tablet 03/06/22 [Rx] Gabapentin 300 mg PO TID #90 cap 03/06/22 [Rx] Polyethylene Glycol 3350 [Miralax] 17 gm PO DAILY PRN #527 gm 03/06/22 [Rx] Sennosides/Docusate Sodium [Senna Plus 8.6-50 mg Tablet] 1 each PO DAILY PRN #20 tablet 03/06/22 [Rx] cefaDROXiL [Duricef] 500 mg PO Q12HR 5 Days #10 cap 03/06/22 [Rx] oxyCODONE HCL/ACETAMINOPHEN [Percocet 7.5-325 mg] 1 tab PO Q6HR PRN #56 tab 03/06/22 [Rx] Activity/Diet/Wound Care/Special Instructions: Spine Discharge and Recovery Instructions Date of Surgery: [03/04/2022] Diagnosis: [Cervical stenosis] Procedure: C5 to C7 ACDF Medications: See medication list All medication refills should be obtained through your primary care doctor or your clinic spine surgeon. Please discuss prescription refills at your follow up appointment. Do not call the hospital for medication refills. Dressing: Leave your dressing in place for a total of 5 days post operatively. Then you may remove your dressing and leave open to air. Keep the area clean and if not able to keep area clean, then cover with sterile gauze and tape. Showering: You may shower 3 days after your procedure allowing soap and water to run over incision. Do not scrub. Do not soak. Blot dry. Follow up: Please confirm a follow up appointment with your surgeon 3 weeks post operatively. Please make an appointment to follow up with your PCP in 1-2 weeks after surgery for evaluation 3 phase, 3-week plan POST OP WEEKS 1-3 1. Lifting/carrying/pushing/pulling limited to less than 5 pounds. 2. Do not sit for longer than 15 minutes at one time. Get up and walk around. Prolonged sitting is NOT advised. If you lay down, see if you can tolerate laying down on you front (belly side) 3. Walk for periods of 15 minutes = 1 mile but no longer; do it multiple times times each day. 4. Ice your low back after activity. POST OP WEEKS 3-6 1. Lifting limited to less than 20 pounds. 2. Do not sit for longer than 30 minutes at a time. Frequently change positions. Use a sit-to stand workstation or take frequent breaks from sitting if you have returned to work. 3. Walk for 30 minutes each day. If possible, do these three or more times a day POST OP WEEKS 6+ At your 6-week appointment we will give you a physical therapy referral to focus on a core stabilization and strengthening program. You should also work on leg & buttock strengthening, hamstring & quadriceps stretching, and continue a low impact aerobic activity program such as swimming, walking, or riding a stationary bicycle. During the initial 6 weeks after your surgery, you are at the highest risk of re-injuring your spine. You should generally avoid BLTs (bending, lifting and twisting combination motions) and follow the above guidelines to reduce the chance of reinjury. You can anticipate post op appointments in our office at approximately 3 weeks and 6 weeks after your surgery. INCISION CARE: If your incision is not draining you do NOT need to cover it with a dressing. Keep your incision clean, dry and intact. In most cases, we apply skin glue, abby or sutures to the incision at the time of surgery. This will be like a crust or have the appearance of a scab and will fall off in time on its own. The stitches or abby need to be removed at 3 weeks post op appointment. You may begin to shower 3 days after surgery (this allows the glue to paulson well). However, please avoid scrubbing the incision site or peeling off any of the skin glue. This will ensure optimal healing of your incision. Also, during this time avoid soaking the incision area in water - this includes swimming pools, hot tubs or baths. No ointments, lotions or oils on the incision until your surgeon allows. Leave abby, sutures or glue in place. Neurological dysfunction that comes on suddenly can also be a sign of a stroke. Below some common symptoms of a stroke are listed: B - balance difficulty such as sudden onset walking or leaning to one side - NEW E - eye problem such as sudden double vision or trouble seeing on one side - NEW F - Facial weakness or numbness on one side - NEW A - Arm or leg weakness or numbness on one side - NEW S - Slurred speech or difficulty with word finding - NEW T - Time is BRAIN! Call 911 as soon as you recognize these symptoms Diet: Consume a regular diet rich in vegetables and lean protein such as chicken or fish. You should consume in a ratio of approximately 20% fats|40% carboh ydrates|40%protein. Vegetables, sweet potatoes, brown rice or quinoa are examples of good carbohydrates. Chips, white bread, cookies and sweets/sugar are examples of bad carbohydrates. Limit your bad carbs, go wild with good carbs. "Life's Simple 7" Guidelines as per [place] [employer] These will help you reclaim your life after surgery and roller helper in your recovery, keeping in mind your restrictions. (1) Get Active. Physical activity can help people lose weight, control high blood pressure and cholesterol, feel emotionally better, and sleep better. (2) Control Cholesterol. Avoid a diet high in saturated fat, trans fat, & cholesterol. Limit whole milk & cream, ice cream, butter, egg yolks, processed meats (like sausage and hot dogs), and fatty meats. Choose healthy foods that are low in saturated fat, trans fat and cholesterol which include: Fruits and vegetables, fiber rich grain products (like whole grain pasta and brown rice), lean meat such as chicken, fish, nuts, seeds, and legumes. (3) Eat Better. Eat small portions. Shop at the grocery with a list and do not stray from it. Tips for a healthy diet include: Limit sodium intake to less than 1500mg daily, avoid prepackaged, processed, and fast foods, choose a diet rich in fruits, vegetables, and whole grain, high fiber foods, and limit saturated & cholesterol in your diet. (4) Manage Blood Pressure. If you have high blood pressure, you should have a cuff at home so that you can check your blood pressure regularly. Be sure you have a good cuff. An arm one is generally better than a wrist one. Bring the cuff to a doctor's appointment to validate that the measurements that your cuff are taking are accurate. Take your blood pressure twice daily when you are sitting down and relaxing. Record the numbers in a log and bring this log with you to your doctors' appointments. (5) Lose Weight if your BMI is above 25. A healthy BMI is between 19-25. To calculate Your BMI, you may use a Standard BMI Calculator on the NIH BMI website: <www.nhlbi.nih.gov/guidelines/obesity/BMI/bmicalc.htm>. Weigh oneself daily. If you are overweight, set a goal to lose weight. A pound a week loss if needed is a good target. (6) Reduce Blood Sugar. Limit foods and liquids with "added sugars." (Added sugars include sucrose, fructose, glucose, maltose, dextrose, high fructose corn syrup, corn syrup, concentrated fruit juice and honey). (7) Stop Smoking. If you smoke, quitting smoking is one of the best things that you can do for your health. Smoking increases your risk of heart attack, stroke, and peripheral vascular disease, which is a build-up of plaque in your arteries. Please discard all the cigarettes and lighters in your house. Have a plan for what you will do when you have the urge to smoke. Direct and second- hand smoke shortens your life as well as the lives of your family, friends and others around you. For your health and the health of those around you, please consider quitting! Proper Bending Body Mechanics: Maintain a wide stance with one foot slightly in front of the other. Keep your back straight. Bend utilizing the strength in your hips and knees. Do not bend at the waist. Maintain the lifted object at your waist-level close to your body. Avoid lifting weight that causes immediately pain or pain anywhere in the body afterwards. Smoking/Nicotine If there was ever one thing that you could do to increase your overall health, decrease your risk of cardiovascular problems by about 39% the second you make the choice, it is to STOP SMOKING. Your body's most instant gratification is the second you stop smoking. We have all heard the studies, read the articles but it is true, smoking is extremely bad for your overall health, and moreover it is detrimental to your bone health. Nicotine, IN ANY FORM, kills bone cells, prevents your body from healing fractures, and significantly prolongs healing after surgery. In spine surgery specifically, it increases your risk of not healing your bones to create a fusion and increases your risk of having a revision surgery due to this up to 60%. I know it is hard. I know it feels impossible. But there are ways. Take control of your life. We are here to help you through it. And when you are ready, ask us and we can direct you to help if you desire. Use the START Plan to Quit Smoking (please visit the Helpguide.org website listed below for more information): S = Set a quit date. Choose a date within the next 2 weeks, so you have enough time to prepare without losing your motivation to quit. If you mainly smoke at work, quit on the weekend, so you have a few days to adjust to the change. T = Tell family, friends, and co-workers that you plan to quit. Let your friends and family in on your plan to quit smoking and tell them you need their support and encouragement to stop. Look for a quit nico who wants to stop smoking as well. You can help each other get through the rough times. A = Anticipate and plan for the challenges you'll face while quitting. Most people who begin smoking again do so within the first 3 months. You can help yourself make it through by preparing ahead for common challenges, such as nicotine withdrawal and cigarette cravings. R = Remove cigarettes and other tobacco products from your home, car, and work. Throw away all your cigarettes (no emergency pack!), lighters, ashtrays, and matches. Wash your clothes and freshen up anything that smells like smoke. Shampoo your car, clean your drapes and carpet, and steam your furniture. T = Talk to your doctor about getting help to quit. Your doctor can prescribe medication to help with withdrawal and suggest other alternatives. If you can't see a doctor, you can get many products over the counter at your local pharmacy or grocery store, including the nicotine patch, nicotine lozenges, and nicotine gum. Resources for Quitting Smoking: <https://www.[place].gov/documents/[facility]/Quit_Tobacc o_Resources_for_patients_313480_7.pdf> Supplementation: Take recommended dosages of Vitamin D and Calcium to help fortify your bones and help them to heal. See your health maintenance packet for dosages and recommended levels. DVT/VTE prophylaxis: You will be given compression stockings from the hospital. Wear these daily for the first two weeks after surgery. You may take them off at night. You may be prescribed a medication to help thin your blood. Take this as directed. If you are not prescribed this medication, early and frequent ambulation has been shown to be the best prophylaxis to deep vein thrombosis and sequelae related to this event. Discharge Disposition: HOME WITH HOME HEALTH SERVICES
[2022-03-06 09:37] LABS: HCT 41.1 % (39.6-50.0); HGB 12.8 g/dL (13.0-17.0); MCH 28.3 pg (27.0-32.0); MCHC 31.1 g/dL (32.0-37.0); MCV 90.7 fL (80.0-97.0); Mean Platelet Volume 10.3 fL (9.5-12.2); NRBC Per 100 WBC 0 /100 WBCS (0.0-0.0); Platelet Count 210 X 10*3/uL (140-440); RBC 4.53 X 10*6/uL (4.40-5.60); RDW 14.8 % (11.5-14.5); WBC 7.81 X 10*3/uL (4.50-10.00)
[2022-03-06 09:52] LABS: African American GFR (CKD) 90.5 (60.0-200.0); Albumin 3.7 g/dL (3.8-4.9); Albumin/Globulin Ratio 1.76 (1.60-3.17); Anion Gap 9.5 mmol/L (10.00-18.00); BUN/Creat Ratio 8.7 Ratio (12.00-20.00); Blood Urea Nitrogen 8.7 mg/dL (9.0-27.0); Calcium 8.7 mg/dL (8.7-10.3); Carbon Dioxide 27.5 mmol/L (20.0-27.5); Globulin 2.1 g/dL (1.6-3.3); Non-African American GFR(CKD) 78.1 (60.0-200.0); Potassium 4.8 mmol/L (3.5-5.5); Total Bilirubin 0.4 mg/dL (0.30-1.20); Total Protein 5.8 g/dL (6.2-8.2)
--- NOTE | 2022-03-06 11:02 | P.PN ---
Subjective Progress Note Date: 03/06/22 Principal diagnosis: cervicalgia with radiculopathy Patient is very pleasant 66-year-old male that elected to undergo C5-C7 ACDF with Dr. Martínez on 03/04/22. Patient had severe chronic neck pain with cervical radiculopathy requiring surgical intervention. Patient has a pertinent medical history of Hypertension, hyperlipidemia, GERD, osteoarthritis, hypothyroidism, pancreatitis, and insomnia. Patient is post op day one of C5-C7 ACDF. Hemoglobin and electrolytes are stable. Patient reports severe neck pain 8/10 after pain medication. Will discuss pain management with surgical team. Home medications have been continued. Discussed increasing activity when pain improves. Incentive spirometry was ordered to prevent post-op complications. We will continue to follow with care. 03/06/22 Patient was seen and examined at bedside. Patient is post-op day 2 from C5-C7 ACDF. Patient reports improvement in pain control with medication adjustments. Pain is 6/10 at this time. He was up walking in the halls with physical therapy. Patient is tolerating diet and denies any other symptoms. Patient is cleared for discharge. Objective - Vital Signs Vital signs: Vital Signs Temp 98.4 F 03/06/22 07:39 Pulse 71 03/06/22 07:39 Resp 19 03/06/22 07:39 BP 169/80 03/06/22 07:39 Pulse Ox 97 03/06/22 07:39 Intake & Output 03/05/22 03/06/22 03/06/22 18:59 06:59 18:59 Output Total 510 Balance -510 Output: Urine 510 Other: Voiding Method Toilet Urinal # Voids 1 - Constitutional General appearance: Present: cooperative, no acute distress - EENT Eyes: Present: EOMI, PERRLA ENT: Present: normal oropharynx - Neck Details: soft cervical collar in place - Respiratory Respiratory: bilateral: CTA - Cardiovascular Heart rate: 80 Rhythm: regular Heart sounds: normal: S1, S2 - Peripheral pulses radial pulse Peripheral Pulses: bilateral: Normal - Gastrointestinal General gastrointestinal: Present: normal bowel sounds, soft - Integumentary Integumentary: Present: normal - Neurologic Neurologic: Present: CNII-XII intact - Musculoskeletal Musculoskeletal: Present: gait normal - Psychiatric Psychiatric: Present: A&O x's 3, appropriate affect, intact judgment & insight - Allied health notes Allied health notes reviewed: nursing - Labs CBC & Chem 7: 03/06/22 05:52 03/06/22 05:52 Labs: Abnormal Lab Results - Last 24 Hours (Table) 03/06/22 03/06/22 Range/Units 05:52 05:52 Hgb 12.8 L (13.0-17.0) g/dL MCHC 31.1 L (32.0-37.0) g/dL RDW 14.8 H (11.5-14.5) % Sodium 146 H (135-145) mmol/L Anion Gap 9.50 L (10.00-18.00) mmol/L BUN 8.7 L (9.0-27.0) mg/dL BUN/Creatinine Ratio 8.70 L (12.00-20.00) Ratio Total Protein 5.8 L (6.2-8.2) g/dL Albumin 3.7 L (3.8-4.9) g/dL Assessment and Plan Assessment: Cervical spondylosis status post C5-C7 ACDF 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
== END 2022-03-06 13:06 | disposition home health service (06) | DRG 473 ==
LOC: 2ORMAIN 05:50 → 4SSUR 16:21
PROVIDERS: ADMIT Orthopaedic Surgery; ATTEND Orthopaedic Surgery
PROC: 0RT30ZZ Resection of Cervical Vertebral Disc, Open Approach (ICD-10-PCS; 2022-03-04)
PROC: 00NW0ZZ Release Cervical Spinal Cord, Open Approach (ICD-10-PCS; 2022-03-04)
PROC: 01N10ZZ Release Cervical Nerve, Open Approach (ICD-10-PCS; 2022-03-04)
PROC: 4A11X4G Monitoring of Peripheral Nervous Electrical Activity, Intraoperative, External Approach (ICD-10-PCS; 2022-03-04)
PROC: 8E09XBG Computer Assisted Procedure of Head and Neck Region, With Computerized Tomography (ICD-10-PCS; 2022-03-04)
PROC: 0RG20A0 Fusion of 2 or more Cervical Vertebral Joints with Interbody Fusion Device, Anterior Approach, Anterior Column, Open Approach (ICD-10-PCS; principal; 2022-03-04 07:30)
DX: M43.12 Spondylolisthesis, cervical region (principal); M47.22 Other spondylosis with radiculopathy, cervical region; M50.123 Cervical disc disorder at C6-C7 level with radiculopathy; E03.9 Hypothyroidism, unspecified; E78.5 Hyperlipidemia, unspecified; M48.02 Spinal stenosis, cervical region; G47.00 Insomnia, unspecified; G89.29 Other chronic pain; I10 Essential (primary) hypertension; I25.2 Old myocardial infarction; K21.9 Gastro-esophageal reflux disease without esophagitis; Z79.1 Long term (current) use of non-steroidal anti-inflammatories (NSAID); Z79.82 Long term (current) use of aspirin; Z79.890 Hormone replacement therapy; Z79.899 Other long term (current) drug therapy; Z80.1 Family history of malignant neoplasm of trachea, bronchus and lung; Z83.3 Family history of diabetes mellitus; Z86.16 Personal history of COVID-19; Z90.49 Acquired absence of other specified parts of digestive tract
CPT/HCPCS: 72040; 72125; 80048; 80053; 84439; 84443; 84481; 85025; 85027; 85610; 86850; 86900; 86901

== ENCOUNTER → 2022-07-17 | Outpatient (CLI) | payer MEDICARE, OTHER ==
--- NOTE | 2022-07-17 09:21 | XR ---
EXAMINATION TYPE: XR chest 2V DATE OF EXAM: 07/17/2022 COMPARISON: Chest x-ray January 29, 2022 HISTORY: Pleurisy and chest pain. TECHNIQUE: Frontal and lateral views of the chest are obtained. FINDINGS: There is no suspicious new focal air space opacity, pleural effusion, or pneumothorax seen . The cardiac silhouette size is stable and within normal limits. Surgical changes to the lower cerv ical spine is now present. IMPRESSION: No acute cardiopulmonary process.
== END | disposition home or self-care (01) ==
LOC: RADXRMAIN 08:52
PROVIDERS: ATTEND Family Medicine
DX: R09.1 Pleurisy (principal)
CPT/HCPCS: 71046

== ENCOUNTER 2022-08-06 09:54 | Emergency (ER) | payer OTHER, MEDICARE ==
[2022-08-06 10:09] VITALS: BP 144/88; PULSE 78; RESP 16; TEMP 98
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
--- NOTE | 2022-08-06 12:18 | XR ---
EXAMINATION TYPE: XR lumbar spine 2 or 3V DATE OF EXAM: 08/06/2022 CLINICAL HISTORY: pain TECHNIQUE: Three views of the lumbar spine are submitted. COMPARISON: None. FINDINGS: There are 5 lumbar type vertebral bodies identified. Changes of lumbar fusion pedicular screws at L5- S1 intervertebral body spacer. Alignment appears to be near-anatomic. No evidence for fracture. IMPRESSION: No acute fracture or dislocation is seen in the lumbar spine. ICD 10 NO FRACTURE, INITIAL EVALUATION
--- NOTE | 2022-08-06 12:19 | XR ---
EXAMINATION TYPE: XR chest 1V DATE OF EXAM: 08/06/2022 HISTORY: Shortness of breath. COMPARISON: 07/17/2022 TECHNIQUE: Single view of the chest is submitted. FINDINGS: Demonstrated are scattered senescent parenchymal change. There is no evidence for focal infiltrate. The heart is stable. Hilar and mediastinal structures are within normal limits. Degenerative changes are seen of the dorsal spine. IMPRESSION: 1. Chronic changes without evidence for acute pulmonary disease.
== END 2022-08-06 12:36 | disposition home or self-care (01) ==
LOC: EC 09:54
DX: M54.50 Low back pain, unspecified (principal); M54.2 Cervicalgia; K21.9 Gastro-esophageal reflux disease without esophagitis; E78.5 Hyperlipidemia, unspecified; I10 Essential (primary) hypertension; M19.90 Unspecified osteoarthritis, unspecified site; E07.9 Disorder of thyroid, unspecified; I25.2 Old myocardial infarction; Z79.890 Hormone replacement therapy; Z79.82 Long term (current) use of aspirin; V49.00XA Driver injured in collision with unspecified motor vehicles in nontraffic accident, initial encounter
CPT/HCPCS: 70450; 71045; 72100; 72125; 99284

== ENCOUNTER → 2022-09-30 | Outpatient (CLI) | payer MEDICARE, OTHER ==
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
== END | disposition home or self-care (01) ==
LOC: RADCTMAIN 16:15
PROVIDERS: ATTEND Orthopaedic Surgery
DX: M43.26 Fusion of spine, lumbar region (principal); M43.22 Fusion of spine, cervical region; M50.321 Other cervical disc degeneration at C4-C5 level
CPT/HCPCS: 72125; 72131

== ENCOUNTER 2022-11-11 15:44 | Emergency (ER) | payer MEDICARE, OTHER ==
[2022-11-11 16:31] LABS: Basophils % (A) 0 %; Eosinophils # (A) 0.1 k/uL (0-0.7); Eosinophils % (A) 1 %; HCT 42.3 % (39.0-53.0); Lymphocytes # (A) 1.7 k/uL (1.0-4.8); Lymphocytes % (A) 12 %; MCH 29.7 pg (25.0-35.0); MCHC 33.1 g/dL (31.0-37.0); MCV 89.8 fL (80.0-100.0); Mean Platelet Volume 7.7; Monocytes # (A) 0.4 k/uL (0-1.0); Monocytes % (A) 3 %; Neutrophils % (A) 83 %; Platelet Count 522 k/uL (150-450); RBC 4.71 m/uL (4.30-5.90); RDW 13.6 % (11.5-15.5); WBC 14.4 k/uL (3.8-10.6)
[2022-11-11 16:32] LABS: VBG PH 7.35 (7.31-7.41)
[2022-11-11 16:42] LABS: Albumin 4.2 g/dL (3.5-5.0); Calcium 9.3 mg/dL (8.4-10.2); Magnesium 1.8 mg/dL (1.6-2.3); Potassium 4.4 mmol/L (3.5-5.1); Total Bilirubin 0.2 mg/dL (0.2-1.3); Total Protein 7.5 g/dL (6.3-8.2)
[2022-11-11 17:28] LABS: Partial Thromboplastin Time 23.1 sec (22.0-30.0); Prothrombin Time 10.5 sec (9.0-12.0)
--- NOTE | 2022-11-11 17:43 | XR ---
EXAMINATION TYPE: XR chest 2V DATE OF EXAM: 11/11/2022 5:13 PM COMPARISON: Chest radiographs from 08/06/2022 TECHNIQUE: XR chest 2V Frontal and lateral views of the chest. CLINICAL INDICATION:Male, 67 years old with history of Chest Pain; FINDINGS: Lungs/Pleura: There is no evidence of pleural effusion, focal consolidation, or pneumothorax. Pulmonary vascularity: Unremarkable. Heart/mediastinum: Cardiomediastinal silhouette is unremarkable. Musculoskeletal: No acute osseous pathology. There is fixation hardware in the lower cervical spine. IMPRESSION: No acute cardiopulmonary disease/process.
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
[2022-11-11 21:53] VITALS: TEMP 97.8
[2022-11-11] MEDS ORDERED: AZITHROMYCIN 500 MG TAB PO STA (22:22)
[2022-11-11 22:41] VITALS: BP 137/85; PULSE 97; RESP 18
== END 2022-11-11 22:40 | disposition home or self-care (01) ==
LOC: EC 15:44
DX: J06.9 Acute upper respiratory infection, unspecified (principal); I10 Essential (primary) hypertension; I25.2 Old myocardial infarction; E07.9 Disorder of thyroid, unspecified; K21.9 Gastro-esophageal reflux disease without esophagitis; Z79.82 Long term (current) use of aspirin; Z79.890 Hormone replacement therapy; Z86.16 Personal history of COVID-19; Z20.822 Contact with and (suspected) exposure to COVID-19; Z79.899 Other long term (current) drug therapy
CPT/HCPCS: 36415; 71046; 80053; 82375; 82803; 83735; 84484; 85025; 85610; 85730; 87636; 93005; 99285

== ENCOUNTER → 2022-11-12 | Outpatient (CLI) | payer OTHER ==
--- NOTE | 2022-11-12 22:28 | MR ---
EXAMINATION TYPE: MR lumbar spine wo/w con DATE OF EXAM: 11/12/2022 5:00 PM COMPARISON: 03/11/2021. CLINICAL INDICATION:Male, 67 years old with history of M51.26, M51.16; TECHNIQUE: Multi planar, multi sequence imaging was performed utilizing: T1-weighted, T2-weighted, a nd turbo inversion recovery imaging of the lumbar spine. IV Contrast: 7.5 cc Gadavist. None. FINDINGS: Alignment: The lumbar vertebral bodies have preserved heights and alignment. Cord: The conus medullaris and the distal spinal cord appear unremarkable with regards to their signa l intensity and morphology. No abnormal postcontrast enhancement. Bones/Discs: Postsurgical changes at L5-S1. Mild multilevel osteophyte formation. Disc signal is rivera sly maintained. Suspected discectomy at L5-S1. No abnormal postcontrast enhancement. Partial Ankylosi s of the sacroiliac joints. L1-L2: No evidence of significant spinal canal stenosis or neural foraminal stenosis. L2-L3: Disc bulge and facet joint arthropathy without significant spinal canal and mild bilateral michelle ral foraminal stenosis. L3-L4: Disc bulge and facet joint arthropathy without significant spinal canal and mild bilateral michelle ral foraminal stenosis. L4-L5: No evidence of significant spinal canal stenosis. Facet joint arthropathy mild bilateral neura l foraminal stenosis. L5-S1: No evidence of significant spinal canal stenosis. Facet joint arthropathy mild bilateral neura l foraminal stenosis. Other findings: Bilateral renal cysts. IMPRESSION: 1. Interval surgical changes at L5-S1. Discectomy spinal canal neural foraminal stenosis. No disc he rniation. 2. Mild disc degeneration with associated osteoarthritic changes. 3. Partial Ankylosis of the sacroiliac joints.
== END | disposition home or self-care (01) ==
LOC: RADMRIMAIN 15:16
PROVIDERS: ATTEND Orthopaedic Surgery
DX: M51.16 Intervertebral disc disorders with radiculopathy, lumbar region (principal); M48.061 Spinal stenosis, lumbar region without neurogenic claudication; M99.73 Connective tissue and disc stenosis of intervertebral foramina of lumbar region; M47.26 Other spondylosis with radiculopathy, lumbar region; M53.3 Sacrococcygeal disorders, not elsewhere classified
CPT/HCPCS: 72158; A9585

== ENCOUNTER → 2023-03-12 | Outpatient (CLI) | payer MEDICARE, OTHER ==
[2023-03-13 03:57] LABS: HIV 2 AB Non-Reactive (Non-Reactive); HIV AB P24 Non-Reactive (Non-Reactive); HIV P24 AG Non-Reactive (Non-Reactive)
== END | disposition home or self-care (01) ==
LOC: LABWHC1 11:15
PROVIDERS: ATTEND Family Medicine
DX: Z11.3 Encounter for screening for infections with a predominantly sexual mode of transmission (principal)
CPT/HCPCS: 36415; 86780; 87390

== ENCOUNTER → 2023-05-20 | Outpatient (CLI) | payer MEDICARE, OTHER ==
[2023-05-20 11:08] LABS: Basophils # (A) 0.02 X 10*3/uL (0.00-0.10); Basophils % (A) 0.3 %; Eosinophils # (A) 0.19 X 10*3/uL (0.04-0.35); Eosinophils % (A) 2.9 %; HCT 42.6 % (39.6-50.0); HGB 13.6 d/dL (12.0-15.0); Lymphocytes # (A) 1.89 X 10*3/uL (0.90-5.00); Lymphocytes % (A) 28.6 %; MCH 29.2 pg (27.0-32.0); MCHC 31.9 d/dL (32.0-37.0); MCV 91.4 FL (80.0-97.0); Mean Platelet Volume 10.4 FL (9.5-12.2); Monocytes % (A) 9.1 %; NRBC Per 100 WBC 0 X 10*3/uL (0.00-0.01); Neutrophils # (A) 3.88 X 10*3/uL (1.80-7.70); Neutrophils % (A) 58.8 %; Platelet Count 253 X 10*3/uL (140-440); RBC 4.66 X 10*6/uL (4.40-5.60); RDW 14.4 % (11.5-14.5)
[2023-05-20 16:13] LABS: ALT 19 U/L (10-49); AST 16 U/L (14-35); Albumin 4.4 d/dL (3.8-4.9); Albumin/Globulin Ratio 1.91 Ratio (1.60-3.17); Alkaline Phosphatase 78 U/L (41-126); Blood Urea Nitrogen 19.5 mg/dL (9.0-27.0); Calcium 9.5 mg/dL (8.7-10.3); Chloride 111 mmol/L (96-109); Chol/HDL Ratio 3.14 Ratio; Globulin 2.3 d/dL (1.6-3.3); Glucose 96 mg/dL (70-110); LDL Cholesterol,Calculated 64.9 mg/dL (0.0-131.0); Potassium 4.6 mmol/L (3.5-5.5); Sodium 146 mmol/L (135-145); Total Bilirubin <0.2 mg/dL (0.3-1.2); Total Protein 6.7 d/dL (6.2-8.2)
== END | disposition home or self-care (01) ==
LOC: LABWHC1 07:16
PROVIDERS: ATTEND Family Medicine
DX: E78.5 Hyperlipidemia, unspecified (principal)
CPT/HCPCS: 36415; 80053; 80061; 84153; 85025

== ENCOUNTER → 2024-05-24 | Outpatient (CLI) | payer MEDICARE, OTHER ==
--- NOTE | 2024-05-24 12:58 | US ---
EXAMINATION TYPE: US renals and bladder DATE OF EXAM: 05/24/2024 COMPARISON: CT: 01/01/23 CLINICAL INDICATION: Male, 68 years old with history of N32.89 OTHER SPECIFIED DISORDERS OF BLADDER; pt states his bladder hurts EXAM MEASUREMENTS: Right Kidney: 10.1 x 5.7 x 5.6 cm Left Kidney: 11.2 x 5.8 x 6.2 cm Right Kidney: Anechoic area seen at inf pole measuring 1.3 x 1.5 x 1.1cm Left Kidney: 2 anechoic areas seen, largest at mid pole measuring 1.9 x 2.1 x 1.6cm Bladder: Possible thickened wall, but bladder is mostly contracted Bilateral Jets seen: Yes There is no evidence for hydronephrosis at this point in time. No nephrolithiasis is seen. No dasha s are identified. The urinary bladder is anechoic. Bilateral ureteral jets are seen. IMPRESSION: 1. No obstructive uropathy. Bilateral simple appearing renal cysts. 2. Urinary bladder is contracted there is concern for wall neoplasm consider cystoscopy.
== END | disposition home or self-care (01) ==
LOC: RADUSWWP 09:53
PROVIDERS: ATTEND Family Medicine
DX: N32.89 Other specified disorders of bladder (principal); N28.1 Cyst of kidney, acquired
CPT/HCPCS: 76770

== ENCOUNTER 2024-06-26 12:23 | Emergency (ER) | payer MEDICARE, OTHER ==
[2024-06-26] MEDS ORDERED: SODIUM CHLORIDE 0.9% 1,000 ML BAG ONE (13:45)
== END 2024-06-26 17:00 | disposition home or self-care (01) ==
LOC: EC 12:23
DX: R53.1 Weakness (principal)
CPT/HCPCS: 93005; 96360; 99285